=== PATIENT | female | born 1950 | race Caucasian/White ===

== ENCOUNTER 2018-04-04 01:49 | Outpatient (CLI) | payer MEDICARE, BC, SELFPAY ==
[2018-04-04 08:19] LABS: Absolute Basophil Count 0.03 k/cumm (0.0-0.2); Absolute Eosinophil Count 0.13 k/cumm (0.0-0.7); Absolute Lymphocyte Count 1.73 k/cumm (1.2-3.4); Absolute Monocyte Count 0.45 k/cumm (0.11-0.7); Absolute Neutrophil Count 2.48 k/cumm (1.2-6.7); Basophils % 0.6; Eosinophils % 2.7; HCT 42.5 % (36.0-46.0); HGB 13.9 g/dL (12.0-15.5); Lymphocytes % 35.9; Mean Corp. HGB Concentration 32.7 g/dL (32.0-36.0); Mean Corpuscular Hemoglobin 30.5 pg (27.0-33.0); Mean Corpuscular Volume 93.4 fL (80-95); Mean Platelet Volume 9.5 fL (8.0-11.0); Monocytes % 9.3; Neutrophils % 51.5; Platelet Count 241 x1000/uL (130-400); RBC 4.55 m/cumm (4.00-5.20); RBC Distribution Width 13.1 % (11.7-14.6); White Blood Cell Count 4.82 k/cumm (4.4-10.8)
[2018-04-04 11:17] LABS: ALT 18 U/L (12-78); AST 19 U/L (15-37); Albumin 3.8 g/dL (3.4-5.0); Alkaline Phosphatase 53 U/L (46-116); Anion Gap 10.7 mmol/L (3-11); BUN 16 mg/dL (7-18); Bilirubin, Total 0.6 mg/dL (0.2-1.0); CO2 27.3 mmol/L (21.0-32.0); CREATININE 0.67 mg/dL (0.55-1.02); Calcium 8.8 mg/dL (8.5-10.1); Chloride 106 mmol/L (98-107); Cholesterol 239 mg/dL (50-200); Glucose 90 mg/dL (70-100); HDL Cholesterol 67 mg/dL (40-60); LDL CHOLESTEROL 154 mg/dL (<100); Potassium 4.2 mmol/L (3.5-5.1); Sodium 144 mmol/L (136-145); TSH (W/Ref FT4) 6.85 uIU/mL (0.358-3.74); Triglyceride 98 mg/dL (30-150)
[2018-04-04 11:34] LABS: FREE T4 0.93 ng/dL (0.76-1.46)
== END 2018-04-04 02:09 ==
PROVIDERS: PCP Internal Medicine; Visit Provider Internal Medicine
DX: E03.9 Hypothyroidism, unspecified (principal); E78.5 Hyperlipidemia, unspecified
CPT/HCPCS: 36415; 80053; 80061; 83721; 84439; 84443; 85025

== ENCOUNTER 2018-07-16 09:16 | Outpatient (CLI) | payer MEDICARE, BC, SELFPAY ==
[2018-07-16 11:24] LABS: TSH (W/Ref FT4) 0.27 uIU/mL (0.358-3.74)
[2018-07-16 11:40] LABS: FREE T4 1.26 ng/dL (0.76-1.46)
== END 2018-07-16 09:36 ==
PROVIDERS: PCP Internal Medicine; Visit Provider Internal Medicine
DX: E03.9 Hypothyroidism, unspecified (principal)
CPT/HCPCS: 36415; 84439; 84443

== ENCOUNTER 2018-12-10 12:00 | Outpatient (CLI) | payer MEDICARE, BC, SELFPAY ==
[2018-12-10 09:47] LABS: Calculated LDL 140 mg/dL; Cholesterol 221 mg/dL (50-200); HDL Cholesterol 62 mg/dL (40-60); TSH (W/Ref FT4) 1.69 uIU/mL (0.36-3.74); Triglyceride 99 mg/dL (30-150)
== END 2018-12-10 12:20 ==
PROVIDERS: PCP Internal Medicine; Visit Provider Internal Medicine
DX: E78.5 Hyperlipidemia, unspecified (principal); E03.9 Hypothyroidism, unspecified
CPT/HCPCS: 36415; 80061; 84443

== ENCOUNTER 2019-02-12 01:19 | Outpatient (CLI) | payer MEDICARE, BC, SELFPAY ==
--- NOTE | 2019-02-12 16:36 | DI.DEXA_ITS ---
EXAM: XR DEXA BONE DENSITY W/WO DEEDEE INDICATION: history wrist fracture, ASYMPTOMATIC MENOPAUSAL STATE Z78.0. COMPARISON: TECHNIQUE: The exam was performed according to the usual protocol. FINDINGS: The DEEDEE image shows no evidence of compression fractures. The bone mineral density measurements of t he lumbar spine correspond to a total T-score of 0, in the normal range. Bone mineral density measure ments of the left hip correspond to a total T-score of -0.6 and a femoral neck T-score of -0.8, in th e normal range. The right forearm bone mineral density measurements correspond to a total T-score of -2.7 and a T-score of the distal 3rd of -1.9 in the osteopenic range. IMPRESSION: Osteopenia of the right forearm. Normal bone mineral density of the lumbar spine and left hip.
== END 2019-02-12 01:39 ==
PROVIDERS: PCP Internal Medicine; Visit Provider Internal Medicine
DX: M85.88 Other specified disorders of bone density and structure, other site (principal); Z78.0 Asymptomatic menopausal state; Z87.81 Personal history of (healed) traumatic fracture
CPT/HCPCS: 77080

== ENCOUNTER 2019-08-07 02:42 | Outpatient (CLI) | payer MEDICARE, BC, SELFPAY ==
--- NOTE | 2019-08-07 09:08 | DI.US_ITS ---
EXAM: US PELVIS TRANSVAGINAL CLINICAL HISTORY: Clitoral swelling,VULVAR LESION,N90.89 TECHNIQUE: Ultrasound performed using standard protocol. COMPARISON: US ABDOMEN ULTRASOUND (P) from 03/28/2017 FINDINGS: Pelvic ultrasound was performed transabdominally and transvaginally. Please see the accompanying heydi a sheet for measurements of pelvic structures. There is a well-defined mildly heterogeneous echogeni c uterine mass measuring up to about 34 millimeters in diameter consistent with a fibroid. Endometri al stripe borderline thickened at 5 millimeters, endometrial stripe appears fairly homogeneous. Ovaries have an unremarkable appearance for a postmenopausal patient. No free fluid identified in the pelvis. Limited scanning of the kidneys is unremarkable. Evaluation of questionable palpable abnormality of the labial region on the right shows a 15 x 6 x 19 millimeter in diameter solid hypoechoic lesion with some internal calcifications. 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 Other etiologies not excluded, biopsy may be obtained if clini yuliana indicated. IMPRESSION: DATA REPOSITORY:
== END 2019-08-07 03:02 ==
PROVIDERS: PCP Nurse Practitioner Adult Health; Visit Provider Obstetrics & Gynecology
DX: N90.89 Other specified noninflammatory disorders of vulva and perineum (principal); D25.9 Leiomyoma of uterus, unspecified; N94.89 Other specified conditions associated with female genital organs and menstrual cycle
CPT/HCPCS: 76830; 76856

== ENCOUNTER 2019-08-08 03:08 | Outpatient (CLI) | payer MEDICARE, BC, SELFPAY ==
[2019-08-08 14:01] LABS: TSH (W/Ref FT4) 1.55 uIU/mL (0.36-3.74)
[2019-08-13 16:18] LABS: Testosterone, Free 0.35 ng/dL (0.06-0.84); Testosterone, Total 22 ng/dL (8-60)
== END 2019-08-08 03:28 ==
PROVIDERS: PCP Nurse Practitioner Adult Health; Visit Provider Obstetrics & Gynecology
DX: E03.9 Hypothyroidism, unspecified (principal); N90.89 Other specified noninflammatory disorders of vulva and perineum
CPT/HCPCS: 36415; 84402; 84403; 84443

== ENCOUNTER 2019-08-11 12:54 | Outpatient (REF) | payer MEDICARE, BC, SELFPAY ==
--- NOTE | 2019-08-11 12:07 | ENDOMET_PTH ---
PATIENT: Cary Sewell LOC: [facility] U#:[id number] AGE/SX: 69/F ROOM: RE08/11/[address]: Felicia Hawk DO : 1950 BED: DIS: 08/11/2019 SPEC #: [id number] RECD: 08/11/19 15:37 STATUS: LENOIE REQ #: [id number] FELA: 08/11/19 12:[address]: Felicia Hawk DEPT: Surgical Specimen RECD BY: Nalini Fiore ENTERED: 08/11/19 15:38 SP TYPE: Endomet OTHR DR: Maddy Nicholas APRN Tissues: 1 - ENDOMETRIUM BX/EDWARD Procedures: GROSS AND MICRO LEVEL 4 Comments: [id number]
== END 2019-08-11 13:14 ==
LOC: LBN 12:54
PROVIDERS: PCP Nurse Practitioner Adult Health; Visit Provider Obstetrics & Gynecology
DX: N84.0 Polyp of corpus uteri (principal); N85.8 Other specified noninflammatory disorders of uterus
CPT/HCPCS: 88305

== ENCOUNTER 2019-09-23 01:15 | Outpatient (CLI) | payer MEDICARE, BC, SELFPAY ==
--- NOTE | 2019-09-23 | DI.US_ITS ---
EXAM: US SOFT TISS BUTTOCK/PERINEUM CLINICAL HISTORY: RECHECK CLITORAL VULVAR LESION,N90.89. TECHNIQUE: Ultrasound was performed using standard protocol. COMPARISON: US US PELVIS TRANSVAGINAL from 08/07/2019 FINDINGS: Sonographic assessment utilizing grayscale and color Doppler imaging was performed and targeted to th e area of clinical concern. There is again seen a well-circumscribed hypoechoic lesion measuring 1.6 x 0.5 x 1.3 cm. This compar es with 1.5 x 0.6 x 1.9 cm. There is mild internal vascularity and a calcification associated with t he lesion. The lesion is in the clitoral vulvar area. IMPRESSION: Slight interval decrease in size of the clitoral/vulvar lesion. DATA REPOSITORY:
== END 2019-09-23 01:35 ==
PROVIDERS: PCP Nurse Practitioner Adult Health; Visit Provider Obstetrics & Gynecology
DX: N90.89 Other specified noninflammatory disorders of vulva and perineum (principal)
CPT/HCPCS: 76857

== ENCOUNTER 2020-03-03 15:50 | Outpatient (REF) | payer MEDICARE, BC, SELFPAY ==
[2020-03-03 20:24] LABS: TSH (W/Ref FT4) 2.12 uIU/mL (0.36-3.74)
== END 2020-03-03 16:10 ==
LOC: LBO 15:50
PROVIDERS: PCP Nurse Practitioner Adult Health; Visit Provider Nurse Practitioner Adult Health
DX: E03.9 Hypothyroidism, unspecified (principal)
CPT/HCPCS: 84443

== ENCOUNTER 2020-03-09 01:44 | Outpatient (CLI) | payer MEDICARE, BC, SELFPAY ==
--- NOTE | 2020-03-09 08:15 | DI.US_ITS ---
EXAM: US CAROTID CLINICAL HISTORY: r/o stenosis, evaluate for plaque,DIZZINESS,LIGHTHEADED,R42. TECHNIQUE: Ultrasound carotids performed using grayscale, color-flow, and spectral Doppler imaging. COMPARISON: No exams were available for comparison FINDINGS: RIGHT CAROTID ARTERY: Plaque: None. Velocity elevation: None. LEFT CAROTID ARTERY: Plaque: None. Velocity elevation: None. VERTEBRAL ARTERIES: Antegrade flow. Measurements: R Bulb: 66.2cm/s PS / 16.7cm/s ED R CCA: 78.4cm/s PS / 19.9cm/s ED R ECA: 52.1cm/s PS / 10.5cm/s ED R ICA Prox: 85.7cm/s PS /19.5cm/s ED R ICA Mid: 79.9cm/s PS / 24.7cm/s ED R ICA Distal: 73.1cm/s PS /28.9cm/s ED R Vert: 57.3cm/s PS / 17.4cm/s ED R SVR: 1.09 R DVR: 0.98 L Bulb: 80.5cm/s PS /18.4cm/s ED L CCA: 87.8cm/s PS / 22.6cm/s ED L ECA: 71cm/s PS /12.6cm/s ED L ICA Prox:45.7cm/s PS / 11.6cm/s ED L ICA Mid: 97.2cm/sPS / 31.2cm/s ED L ICA Distal: 111.2cm/s PS / 36cm/s ED L Vert: 61.7cm/s PS / 18.6cm/s ED L SVR: 1.27 L DVR: 1.59 IMPRESSION: No evidence for hemodynamically significant carotid stenosis. Criteria for Carotid Stenosis: Normal: ICA PSV <125 cm/s no plaque or intimal thickening is visible. <50% stenosis: ICA PSV <125 cm/s and plaque or intimal thickening is visible. 50-69% stenosis: ICA PSV is 125-250 cm/s and plaque is visible. >70% stenosis to near occlusion: ICA PSV >250 cm/s with visible plaque and luminal narrowing. DATA REPOSITORY:
== END 2020-03-09 02:04 ==
PROVIDERS: PCP Nurse Practitioner Adult Health; Visit Provider Student in an Organized Health Care Education/Training Program
DX: R42 Dizziness and giddiness (principal)
CPT/HCPCS: 93880

== ENCOUNTER 2020-04-19 01:11 | Outpatient (CLI) | payer MEDICARE, BC, SELFPAY ==
--- NOTE | 2020-04-19 | DI.US_ITS ---
EXAM: US HERNIA CLINICAL HISTORY: NEW LUMP RT MONS PUBIS,H/O VULVULAR LESION,LUMP IN GROIN,R93.89,N90.89. TECHNIQUE: Ultrasound of the right groin was performed. Images are submitted for interpretation.. COMPARISON: None FINDINGS: Sonographic assessment utilizing grayscale and color Doppler imaging was performed and targeted to th e area of clinical concern. This is apparently the right groin region. There is fat density in this region measuring approximately 2.2 x 1.0 x 0.8 centimetres which is prob ably an inguinal hernia. No obvious bowel loops noted therein on these images. IMPRESSION: As above. If clinically indicated further study with CT scan could be performed. DATA REPOSITORY:
== END 2020-04-19 01:12 ==
LOC: DI 01:11
PROVIDERS: PCP Nurse Practitioner Adult Health; Visit Provider Nurse Practitioner Adult Health
DX: R93.89 Abnormal findings on diagnostic imaging of other specified body structures (principal)
CPT/HCPCS: 76857

== ENCOUNTER 2020-09-28 03:32 | Outpatient (CLI) | payer MEDICARE, BC, SELFPAY ==
[2020-09-28 09:14] LABS: Anion Gap 6.3 mmol/L (3-11); BUN 13 mg/dL (7-18); CO2 31.7 mmol/L (21.0-32.0); CREATININE 0.6 mg/dL (0.55-1.02); Calcium 8.8 mg/dL (8.5-10.1); Calculated LDL 150 mg/dL (<100); Chloride 108 mmol/L (98-107); Cholesterol 234 mg/dL (<200); Folate 17.5 ng/mL (8.6-20.0); Glucose 93 mg/dL (74-106); HDL Cholesterol 65 mg/dL (40-60); Potassium 4.7 mmol/L (3.5-5.1); Sodium 146 mmol/L (136-145); TSH (W/Ref FT4) 3.02 uIU/mL (0.36-3.74); Triglyceride 97 mg/dL (<150); Vitamin B12 244 pg/mL (193-986)
[2020-09-28 18:45] LABS: Vitamin D 25 Total 52.2 ng/mL (30-100)
== END 2020-09-28 03:33 | disposition home or self-care (01) ==
LOC: LBO 03:32
PROVIDERS: PCP Nurse Practitioner Adult Health; Visit Provider Nurse Practitioner Adult Health
DX: E03.9 Hypothyroidism, unspecified (principal); E78.5 Hyperlipidemia, unspecified; M85.88 Other specified disorders of bone density and structure, other site; R20.2 Paresthesia of skin
CPT/HCPCS: 36415; 80048; 80061; 82306; 82607; 82746; 84443

== ENCOUNTER 2020-10-06 02:37 | Outpatient (CLI) | payer MEDICARE, BC, SELFPAY ==
--- NOTE | 2020-10-06 07:45 | DI.US_ITS ---
Exam(s) US SOFT TISS EXTREMITY/GROIN EXAM: US SOFT TISS EXTREMITY/GROIN CLINICAL HISTORY: Recheck lesion near to the clitoris,VULVAR LESION,N90.89. TECHNIQUE: Ultrasound was performed using standard protocol. COMPARISON: US US SOFT TISS BUTTOCK/PERINEUM from 09/23/2019 US US SOFT TISS BUTTOCK/PERINEUM from 09/23/2019 US US HERNIA from 04/19/2020 FINDINGS: Sonographic assessment utilizing grayscale and color Doppler imaging was performed and targeted to th e area of clinical concern. This is the collateral-vulvar region. Again noted is the previously described oval well-circumscribed lesion which appears unchanged, prese ntly measuring 16 by 8 x 14 millimeter. Exhibits some mild peripheral calcification. This is not co mpletely anechoic but again exhibits relatively uniform internal echoes. IMPRESSION: Previously described finding in this region exhibits minimal if any significant change. It is well-d efined slightly vascular. It is not a simple cyst DATA REPOSITORY:
== END 2020-10-06 02:57 ==
PROVIDERS: PCP Nurse Practitioner Adult Health; Visit Provider Obstetrics & Gynecology
DX: N90.89 Other specified noninflammatory disorders of vulva and perineum (principal); M72.2 Plantar fascial fibromatosis
CPT/HCPCS: 76882

== ENCOUNTER 2021-02-11 16:19 | Outpatient (REF) | payer MEDICARE, BC, SELFPAY ==
[2021-02-11 19:28] LABS: Abs Immature Grans 0.01 10^3/uL (0.0-0.06); Absolute Basophil Count 0.06 10^3/uL (0.0-0.2); Absolute Eosinophil Count 0.08 10^3/uL (0.0-0.7); Absolute Lymphocyte Count 2.39 10^3/uL (1.2-3.4); Absolute Neutrophil Count 2.96 10^3/uL (1.2-6.7); Eosinophils % 1.3; HCT 41.9 % (36.0-46.0); HGB 13.5 g/dL (11.2-15.7); Immature Grans % 0.2; Lymphocytes % 39.8; MCH 30.1 pg (27.0-33.0); MCHC 32.2 % (32.0-36.0); MCV 93.5 fL (80-95); MPV 9.5 fL (8.0-11.0); Monocytes % 8.3; Neutrophils % 49.4; Nucleated RBC 0 %; Platelet Count 287 10^3/uL (130-400); RBC 4.48 10^6/uL (3.93-5.22); RDW 12.4 % (11.7-14.6)
[2021-02-11 19:32] LABS: ALT 23 U/L (14-59); AST 15 U/L (15-37); Alkaline Phosphatase 57 U/L (46-116); Anion Gap 7.4 mmol/L (3-11); BUN 16 mg/dL (7-18); Bilirubin, Total 0.3 mg/dL (0.2-1.0); CO2 29.6 mmol/L (21.0-32.0); CREATININE 0.7 mg/dL (0.55-1.02); Chloride 104 mmol/L (98-107); Glucose 81 mg/dL (74-106); Magnesium 2.5 mg/dL (1.8-2.4); Potassium 4.3 mmol/L (3.5-5.1); Sodium 141 mmol/L (136-145); TSH (W/Ref FT4) 5.71 uIU/mL (0.36-3.74); Total Protein 6.9 g/dL (6.4-8.2); Vitamin B12 464 pg/mL (193-986)
[2021-02-11 19:52] LABS: FREE T4 0.93 ng/dL (0.76-1.46)
== END 2021-02-11 16:20 | disposition home or self-care (01) ==
LOC: LBN 16:19
PROVIDERS: PCP Nurse Practitioner Adult Health; Visit Provider Nurse Practitioner Adult Health
DX: F43.9 Reaction to severe stress, unspecified (principal); R00.2 Palpitations; R53.83 Other fatigue; R63.4 Abnormal weight loss
CPT/HCPCS: 80053; 82607; 83735; 84439; 84443; 85025

== ENCOUNTER 2021-04-14 02:57 | Outpatient (CLI) | payer MEDICARE, BC, SELFPAY ==
--- NOTE | 2021-05-05 12:48 | W.CARDEVENT ---
Date of service: 05/05/21 Time of Service: 12:48 Cardiac Event Recorder Referring Provider:: Maddy Nicholas Indications:: Palpitations Cardiac Event Note: This is a 14-day monitor and storage bin tender ordered for palpitations Predominant rhythm was sinus with an average heart rate of 63. Minimum was 42, maximum 138 There were rare ventricular ectopic beats. There was one 4 beat run of nonsustained ventricular tachycardia There were rare atrial premature beats. A total of 42 self-limited atrial runs occurred. Most of these were less than 5 beats in duration. There was one of 11 beats, another of 17 beats There was no atrial fibrillation, no high-grade AV block, no pauses greater than 2 seconds Multiple patient symptoms were reported the vast majority of which corresponded to sinus rhythm in the 60s. One episode may have correlated to brief atrial run
--- NOTE | 2021-05-27 08:22 | W.CARDEVENT ---
Date of service: 05/27/21 Time of Service: 08:22 Cardiac Event Recorder Referring Provider:: Maddy Cooney Indications:: Palpitations Cardiac Event Note: This is a 14-day event monitor, ordered for palpitations. Predominant rhythm was sinus. Average heart rate was 63. Minimum was 42, maximum 138 There were rare ventricular ectopic beats. There was one 4 beat run of nonsustained tachycardia There were rare atrial premature beats. A total of 6 self-limited atrial runs occurred. The longest of these was 11 beats in duration. 3 of these corresponded to symptoms There was no atrial fibrillation, no high-grade AV block, no pauses greater than 3 seconds Multiple patient symptoms were reported. The majority of these corresponded to sinus bradycardia and sinus rhythm. Rarely they corresponded to atrial runs, see above
== END 2021-04-14 02:58 | disposition home or self-care (01) ==
LOC: RT 02:58
PROVIDERS: PCP Nurse Practitioner Adult Health; Visit Provider Nurse Practitioner Adult Health
DX: R00.2 Palpitations (principal); I49.1 Atrial premature depolarization; Z86.79 Personal history of other diseases of the circulatory system; F43.9 Reaction to severe stress, unspecified
CPT/HCPCS: 93246

== ENCOUNTER 2021-05-05 12:48 | Outpatient (CLI) | payer MEDICARE, BC, SELFPAY | END 2021-05-05 12:49 | LOC: CARDO 06-15 13:01 | PROVIDERS: PCP Nurse Practitioner Adult Health; Referring Provider Nurse Practitioner Adult Health; Visit Provider Internal Medicine Cardiovascular Disease | DX: R00.2 Palpitations (principal); I49.1 Atrial premature depolarization | CPT/HCPCS: 93248 ==

== ENCOUNTER 2021-11-22 01:38 | Outpatient (CLI) | payer MEDICARE, BC, SELFPAY ==
[2021-11-22 08:14] LABS: Anion Gap 7.6 mmol/L (3-11); BUN 13 mg/dL (7-18); CO2 29.4 mmol/L (21.0-32.0); CREATININE 0.6 mg/dL (0.55-1.02); Calcium 8.9 mg/dL (8.5-10.1); Calculated LDL 120 mg/dL (<100); Chloride 106 mmol/L (98-107); Cholesterol 206 mg/dL (<200); Glucose 94 mg/dL (74-106); HDL Cholesterol 75 mg/dL (40-60); Potassium 3.8 mmol/L (3.5-5.1); Sodium 143 mmol/L (136-145); TSH (W/Ref FT4) 1.69 uIU/mL (0.36-3.74); Triglyceride 56 mg/dL (<150)
== END 2021-11-22 01:39 | disposition home or self-care (01) ==
LOC: LBO 01:38
PROVIDERS: PCP Nurse Practitioner Adult Health; Visit Provider Nurse Practitioner Adult Health
DX: E03.9 Hypothyroidism, unspecified (principal); E78.00 Pure hypercholesterolemia, unspecified; M85.831 Other specified disorders of bone density and structure, right forearm
CPT/HCPCS: 36415; 80048; 80061; 84443

== ENCOUNTER 2022-11-16 02:21 | Outpatient (CLI) | payer MEDICARE, BC, SELFPAY ==
[2022-11-16 10:52] LABS: Anion Gap 5.8 mmol/L (3-11); BUN 15 mg/dL (7-18); CO2 29.2 mmol/L (21.0-32.0); CREATININE 0.7 mg/dL (0.55-1.02); Calcium 8.8 mg/dL (8.5-10.1); Calculated LDL 121 mg/dL (<100); Chloride 105 mmol/L (98-107); Cholesterol 205 mg/dL (<200); Estimated GFR 92.41 (mL/min/1.73m2); Glucose 90 mg/dL (74-106); HDL Cholesterol 70 mg/dL (40-60); Potassium 3.9 mmol/L (3.5-5.1); Sodium 140 mmol/L (136-145); TSH (W/Ref FT4) 1.46 uIU/mL (0.36-3.74); Triglyceride 70 mg/dL (<150)
== END 2022-11-16 02:22 | disposition home or self-care (01) ==
LOC: LBO 02:21
PROVIDERS: PCP Nurse Practitioner Adult Health; Visit Provider Nurse Practitioner Adult Health
DX: E03.9 Hypothyroidism, unspecified (principal); E78.00 Pure hypercholesterolemia, unspecified; M85.831 Other specified disorders of bone density and structure, right forearm
CPT/HCPCS: 36415; 80048; 80061; 84443

== ENCOUNTER 2022-11-23 10:19 | Outpatient (RCR) | payer MEDICARE, BC, SELFPAY ==
--- NOTE | 2022-11-23 10:20 | HOLTER_ITS ---
APPROVED REPORT Conclusion This is a 48-hour Holter monitor ordered for palpitations Rhythm throughout was sinus with an average heart rate of 66. Minimum was 49, maximum 119 There were rare ventricular ectopic beats There were rare atrial premature beats. A total of 15 self-limited atrial runs occurred. The longes t of these was 28 beats in duration There was no atrial fibrillation, no high-grade AV block, no pauses greater than 3 seconds Symptoms were reported. Some of these appeared to correlate with atrial runs
== END 2022-12-02 23:59 | disposition home or self-care (01) ==
LOC: CARDOPNVT 10:19
PROVIDERS: PCP Nurse Practitioner Adult Health; Visit Provider Nurse Practitioner Adult Health
DX: R00.2 Palpitations (principal)
CPT/HCPCS: 93227; 93225; 93226

== ENCOUNTER → 2023-03-14 14:17 | Outpatient (CLI) | payer MEDICARE, BC, SELFPAY ==
--- NOTE | 2023-03-14 14:25 | DI.RAD_ITS ---
Exam(s) XR ABDOMEN FLAT UPRIGHT EXAM: 2D digital imaging was performed. CLINICAL HISTORY: eval boat, obstruction, ileus, bloating, pain, intestinal cramps, FH CA GI. COMPARISON: CR CHEST 2 VIEWS PA,LAT from 03/08/2016 TECHNIQUE: Supine and upright abdomen and PA chest views were performed. Five images were obtained. FINDINGS: MEDIASTINUM: Normal. HEART: Normal. PULMONARY VASCULATURE: Normal. LUNGS: Clear. PLEURAL SPACE: No pleural effusion or pneumothorax. BONE:Within normal limits for the patient's age. OTHER FINDINGS:There are multiple phleboliths in the pelvis. BOWEL GAS PATTERN: Nondistended. FREE AIR: None. CALCIFICATIONS: No radiopaque calcifications. OTHER FINDINGS: None. IMPRESSION: 1. Nonobstructive bowel gas pattern. 2. No acute pulmonary process. DATA REPOSITORY: RADIATION DOSE DELIVERED:
[2023-03-14 15:45] LABS: Abs Immature Grans 0.01 10^3/uL (0.0-0.06); Absolute Basophil Count 0.06 10^3/uL (0.0-0.2); Absolute Eosinophil Count 0.08 10^3/uL (0.0-0.7); Absolute Lymphocyte Count 1.74 10^3/uL (1.2-3.4); Absolute Monocyte Count 0.53 10^3/uL (0.1-0.8); Absolute Neutrophil Count 3.32 10^3/uL (1.2-6.7); Eosinophils % 1.4; HCT 40.6 % (36.0-46.0); HGB 13.3 g/dL (11.2-15.7); Immature Grans % 0.2; Lymphocytes % 30.3; MCH 30.2 pg (27.0-33.0); MCHC 32.8 % (32.0-36.0); MCV 92 fL (80-95); MPV 9.7 fL (8.0-11.0); Monocytes % 9.2; Neutrophils % 57.9; Platelet Count 256 10^3/uL (130-400); RBC 4.41 10^6/uL (3.93-5.22); RDW 12.4 % (11.7-14.6); RDW-SD 42.1 fL; WBC 5.74 10^3/uL (4.4-10.8)
[2023-03-14 16:10] LABS: Anion Gap 8.2 mmol/L (3-11); BUN 16 mg/dL (7-18); CO2 27.8 mmol/L (21.0-32.0); CREATININE 0.6 mg/dL (0.55-1.02); Chloride 104 mmol/L (98-107); Estimated GFR 95.31 (mL/min/1.73m2); Glucose 87 mg/dL (74-106); Sodium 140 mmol/L (136-145)
== END ==
PROVIDERS: PCP Nurse Practitioner Adult Health; Visit Provider Student in an Organized Health Care Education/Training Program
DX: R14.0 Abdominal distension (gaseous) (principal); R10.9 Unspecified abdominal pain; Z80.0 Family history of malignant neoplasm of digestive organs
CPT/HCPCS: 36415; 80048; 74019; 85025

== ENCOUNTER 2023-11-27 07:16 | Outpatient (CLI) | payer MEDICARE, BC, SELFPAY ==
[2023-11-27 08:17] LABS: Anion Gap 7.3 mmol/L (3-11); BUN 16 mg/dL (7-18); CO2 27.7 mmol/L (21.0-32.0); CREATININE 0.7 mg/dL (0.55-1.02); Calcium 8.7 mg/dL (8.5-10.1); Calculated LDL 134 mg/dL (<100); Chloride 106 mmol/L (98-107); Cholesterol 224 mg/dL (<200); Estimated GFR 91.83 (mL/min/1.73m2); Glucose 95 mg/dL (74-106); HDL Cholesterol 75 mg/dL (40-60); Sodium 141 mmol/L (136-145); TSH (W/Ref FT4) 1.65 uIU/mL (0.36-3.74); Triglyceride 79 mg/dL (<150)
== END 2023-11-27 07:17 | disposition home or self-care (01) ==
LOC: LBO 07:17
PROVIDERS: PCP Nurse Practitioner Adult Health; Visit Provider Nurse Practitioner Adult Health
DX: E03.8 Other specified hypothyroidism (principal); E03.9 Hypothyroidism, unspecified; E78.5 Hyperlipidemia, unspecified; E78.00 Pure hypercholesterolemia, unspecified; M85.831 Other specified disorders of bone density and structure, right forearm; H61.20 Impacted cerumen, unspecified ear; R00.2 Palpitations; Z80.0 Family history of malignant neoplasm of digestive organs; Z80.3 Family history of malignant neoplasm of breast; Z12.31 Encounter for screening mammogram for malignant neoplasm of breast; H61.23 Impacted cerumen, bilateral
CPT/HCPCS: 36415; 80048; 80061; 84443

== ENCOUNTER 2024-04-18 00:15 | Outpatient (CLI) | payer MEDICARE, BC, SELFPAY ==
--- OUTSIDE RECORDS SUMMARY | 2024-04-18 00:18 | XMS_ITS | Clinical Summary ---
Author Organization [facility] [place] [address] Care Team Providers Care Chief Psychology Name Role Phone Maddy Nicholas APRN Primary Care Provider [phone] Allergies Active Allergy Reactions Criticality Noted Date Comments Sulfa (Sulfonamide Antibiotics) Medications Medication Sig Dispensed Refills Start Date End Date Status melatonin 3 mg Tab Take 3 mg by mouth every evening. Active diphenhydrAMINE (BENADRYL) 25 mg tablet Take 25 mg by mouth every 6 hours as needed. Active levothyroxine (SYNTHROID) 88 mcg Tablet Take 88 mcg by mouth daily. Sunday,Sunday, and Sunday Active levothyroxine (SYNTHROID) 50 mcg Tablet Take 50 mcg by mouth daily. Take on Sunday, Sunday and Sunday Active cholecalciferol, Vitamin D3, (CHOLECALCIFEROL, VITAMIN D3,) 2,000 unit Capsule Take 2,000 Units by mouth daily. Active Red Yeast Rice Extract 600 mg Capsule Take 600 mg by mouth daily. Active magnesium oxide (MAG-OX) 400 mg Tablet Take 400 mg by mouth daily. Active triamcinolone (KENALOG) 0.1 % OintmentIndications:I rritant hand dermatitis Apply topically to affected areas on hands twice daily for two weeks. Take a week off and repeat as needed. 80 g 1 09/27/2018 Active traZODone (Desyrel) 50 mg Tablet TAKE ONE-HALF TO ONE TABLET BY MOUTH AT BEDTIME; MAY REPEAT ONCE NEEDED +MAX 100MG PER DAY+ 04/23/2021 Active Active Problems Problem Noted Date Diagnosed Date Chest pain 03/21/2017 Gastroesophageal reflux 03/21/2017 Hypothyroidism 03/21/2017 Hyperlipidemia 03/21/2017 Cryptic tonsil 02/04/2013 Overview (02/04/2013): right Abnormal CT scan of lung 01/13/2013 Immunizations Name Administration Dates Next Due Hepatitis A, Unspecified Formulation 07/07/2005 Td Adult (not absorbed) 06/27/2005 Family History Medical History Relation Comments Diabetes Brother 1 Alcohol Use Disorder Father Cerebrovascular Accident Father Hypertension Father Heart Disease Maternal Grandfather Breast Cancer Mother Colorectal Cancer Mother Diabetes Mother Breast Cancer Sister Diabetes Sister Relation Status Comments Brother 1 Alive Brother 2 Alive Father Maternal Grandfather Mother Sister Alive Social History Tobacco Use Types Packs/Day Years Used Date Smoking Tobacco: Former Cigarettes Q uit: 01/14/1972 Smokeless Tobacco: Never Alcohol Use Standard Drinks/Week Comments Yes 0 (1 standard drink = 0.6 oz pure alcohol) a couple of glasses on the weekend Sex and Gender Information Value Date Recorded Sex Assigned at Not on file Gender Identity Not on file Sexual Orientation Not on file Last Filed Vital Signs Vital Sign Reading Time Taken Comments Blood Pressure 98/62 04/11/2017 1:20 PM EST Pulse 60 04/11/2017 1:12 PM EST per e kg Temperature - - Respiratory Rate - - Oxygen Saturation 98% 04/11/2013 10:08 AM EST Inhaled Oxygen Concentration - - Weight 60.8 kg (134 lb) 04/11/2017 1:12 PM EST Height 167.6 cm (5' 6) 04/11/2017 1:12 PM EST Body Mass Index 21.63 04/11/2017 1:12 PM EST Plan of Treatment Health Maintenance Due Date Last Done Comments CT Colonography 1950 Colonoscopy 1950 Colorectal Cancer Screening 1950 FIT DNA 1950 FIT 1950 Sigmoidoscopy (10 year) with FIT yearly 1950 Sigmoidoscopy 1950 Hepatitis C Screening 1969 Breast Cancer Share Decision Needed 1991 Pneumoccocal Vaccine: 50+ (1 of 1 - PCV) 2001 Zoster vaccine (1 of 2) 2001 Tetanus/Diphtheria/Pertussis Vaccines (1 - Tdap) 06/28/2005 06/27/2005 Advance Directive 2006 Bone Density Scan 2016 Covid-19 Vaccine (1 - 2023-2 5 season) 2023 Influenza (Flu) vaccine (1 o f 1 - Influenza standard series) 11/04/2023 Breast Cancer screening 12/02/2025 12/03/19 24, 11/15/2022, 10/18/2021, Additional history exists Procedures Procedure Name Priority Date/Time Associated Diagnosis Comments MAMMO SCREENING CAD AND JAIME BILATERAL Routine 12/03/2023 9:41 AM EDT Visit for screening mammogram from Last 3 Months or Most Recently Relevant to Health Maintenance Results * Mammo Screening Cad and Jaime Bilateral (12/03/2023 9:41 AM EDT) Anatomical Region Laterality Modality Breast Bilateral Mammography Impressions 12/03/2023 10:01 AM EDT : No mammographic evidence of malignancy. RECOMMENDATION: Regular screening mammograms starting at age 40 reduce the risk of from breast cancer. Individuals should discuss the risks and benefits with their provider to determine their preferred breast cancer screening schedule, and at what age screening should stop. Individuals should report any breast changes to a health care provider right away. Some individuals, because of their family history, a genetic tendency, or other factors, should consider being screened with annual breast MRI as well as with mammograms. Screening mammography may not detect 10-15% of breast cancers. A result letter has been sent to this patient by the [facility]. BIRADS CATEGORY 1: NEGATIVE Electronically signed by: JEOVANY COMBS MD [facility] [place], [place] [address] Your breast imaging exam done on: ??12/03/23 Narrative 12/03/2023 10:01 AM EDT BILATERAL MAMMOGRAPHY REASON FOR EXAM: Screening TECHNIQUE: CC and MLO views were obtained of each breast using standard 2-D mammography as well as 3-D tomosynthesis. Computer aided detection was used. This is compared with prior images. FINDINGS: ??The breasts are heterogeneously dense, which may obscure small masses. There are no suspicious microcalcifications, masses, or areas of distortion. The pattern is stable. Maddy Nicholas APRN IMG MAMMO ORDERABLE S from Last 3 Months or Most Recently Relevant to Health Maintenance Care Teams Chief Psychology Relationship Specialty Start Date End Date Maddy Nicholas APRN [address] [place], [place] [id number] PCP - General Geriatric Medicine 10/28/19
--- OUTSIDE RECORDS SUMMARY | 2024-04-18 00:18 | XMS_ITS | Encounter Summary ---
[place] [address] Care Team Providers Care Hammer Setter Name Role Phone Maddy Nicholas APRN Primary Care Provider [phone] Encounter Details Date Type Department Care Team (Latest Contact Info) Description 12/03/2023 9:09 AM EDT - 12/03/2023 11:59 PM EDT Hospital Encounter Mammography/[place] [id number] Maddy Nicholas APRN [address] [place] [address] Visit for screening mammogram Discharge Disposition: Home Social History Tobacco Use Types Packs/Day Years [...] on file Sexual Orientation Not on file documented as of this encounter Medications at Time of Discharge Medication Sig Dispensed Refills Start Date End Date traZODone (Desyrel) 50 mg Tablet TAKE ONE-HALF TO ONE TABLET BY MOUTH AT BEDTIME; MAY REPEAT ONCE NEEDED +MAX 100MG PER DAY+ 04/23/2021 triamcinolone (KENALOG) 0.1 % OintmentIndications:Irri tant hand dermatitis Apply topically to affected areas on hands twice daily for two weeks. Take a week off and repeat as needed. 80 g 1 09/27/2018 magnesium oxide (MAG-OX) 400 mg Tablet Take 400 mg by mouth daily. levothyroxine (SYNTHROID) 88 mcg Tablet Take 88 mcg by mouth daily. Sunday,Sunday, and Sunday levothyroxine (SYNTHROID) 50 mcg Tablet Take 50 mcg by mouth daily. Take on Sunday, Sunday and Sunday cholecalciferol, Vitamin D3, (CHOLECALCIFEROL, VITAMIN D3,) 2,000 unit Capsule Take 2,000 Units by mouth daily. Red Yeast Rice Extract 600 mg Capsule Take 600 mg by mouth daily. diphenhydrAMINE (BENADRYL) 25 mg tablet Take 25 mg by mouth every 6 hours as needed. melatonin 3 mg Tab Take 3 mg by mouth every evening. documented as of this encounter Plan of Treatment Not on file documented as of this encounter Procedures Procedure Name Priority Date/Time Associated Diagnosis Comments MAMMO SCREENING CAD AND JAIME BILATERAL Routine 12/03/2023 9:41 AM EDT Visit for screening mammogram documented in this encounter Results * Mammo Screening Cad and Jaime [...] JEOVANY COMBS MD [facility] [place], [place] [address] Your breast imaging exam done on: ??12/03/23 [...] Maddy Nicholas APRN IMG MAMMO ORDERABLE S documented in this encounter Visit Diagnoses Diagnosis Visit for screening mammogram Other screening mammogram documented in this encounter Care Teams Hammer Setter Relationship Specialty Start Date End Date Maddy Nicholas APRN [address] [place] [address] PCP - General Geriatric Medicine 10/28/19 documented as of this encounter
--- OUTSIDE RECORDS SUMMARY | 2024-04-18 00:18 | XMS_ITS | Encounter Summary ---
Author Organization [facility] Address [address] [place] [address] Care Team Providers Care Yard Pilot Name Role Phone Unavailable Primary Care Provider Unavailabl e Encounter Details Date Type Department Care Team (Late st Contact Info) Description 02/05/2014 Results Only [facility] Services - [facility] ([facility]) [address] [place] [id number] Maylin Hinojosa PA Social History Tobacco Use Types Packs/Day Years Used Date Smoking Tobacco: Never Assessed Comments Unknown Sex and Gender Information Value Date Recorded Sex Assigned at Not on file Legal Sex Female 17:40 EST Gender Identity Not on file Sexual Orientation Not on file documented as of this encounter Plan of Treatment Not on file documented as of this encounter Procedures Procedure Name Priority Date/Time Associated Diagnosis Comments PAP TEST- RESULT ONLY Routine 02/05/2014 0:00 EST documented in this encounter Results * PAP TEST- RESULT ONLY (02/05/2014 0:00 EST) Pathology Report: CYTOPATHOLOGY REPORT Reports generated via electronic interface contain original data; however they are lacking the format of the original report. Caution should be taken when reading/interpreti ng unformatted reports. Name: ? CONSTANZA LUNA ? Accession #: ? [id number] ? : ? 1950 (Age: 63) ??F ?Collect Date: ? 02/05/2014 ? Location: ? [facility] ? Receive Date: ? 02/06/2014 ? Provider: MAYLIN STAFFORD Copy to: ? Final Report SPECIMEN ADEQUACY ? Satisfactory for Evaluation - transformation zone component present GENERAL CATEGORIZATION ? Negative for Intraepithelial Lesion or Malignancy ?? Menstrual/Pregnanc y Status: ??Post Menopausal Previous Gynecologic Pathology: Yes: Many yrs ago Specimen/Source: ??Pap Test, Cervix/Endocervix, ThinPrep Imaging System with manual evaluation Document reviewed and electronically signed by: ? ERNESTO Alatorre(ASCP) ? Report ??Date: 02/10/2014 13:07 HPV with Pap Test ? Date Ordered: ? 02/10/2014 ? Status: ?? Signed Out ?Date Complete: ? 02/11/2014 ? By: ??System Interface ? Date Reported: ? 02/11/2014 ? Interpretation RESULT: Negative for HPV. No E6 or E7 mRNA is detected from HPV types 16,18,31,33,35, 39,45,51,52,56,58, 59,66, and 68 by senior bookkeeper mediated amplification. Comments Document reviewed and electronically signed by: ? System Interface ? Report date: 02/11/2014 By the signature above, the attending physician certifies that he/she has personally conducted a gross and/or microscopic examination of the described specimens and rendered or confirmed the above diagnosis. End of Report [facility] 02/05/2014 02/06/2014 us Maylin STAFFORD PATHOLOGY ORDERABLES Final Resul t [facility] [address] [place] [address] documented in this encounter Visit Diagnoses Not on filedocumented in this encounter
--- OUTSIDE RECORDS SUMMARY | 2024-04-18 00:18 | XMS_ITS | Encounter Summary ---
Author Organization [facility] Address [facility] [place] [address] Care Team Providers Care Vice President Planning Name Role Phone Maddy Nicholas APRN Primary Care Provider [phone] Encounter Details Date Type Department Care Team (Late st Contact Info) Description 11/29/2023 11:45 AM EDT Office Visit Dermatology at [facility] [address] [place] [address] Adalberto Melchor MD [facility] [address] [place] [address] AK (actinic keratosis); Inflamed seborrheic keratosis; Skin cancer screening; SK (seborrheic keratosis); Multiple benign nevi; Duncan angioma; Lentigines Social History Tobacco Use Types Packs/Day Years [...] on file documented as of this encounter Progress Notes * Montse Dickerson CCMA - 11/29/2023 11:45 AM EDT Images from the original note were not included. DEPARTMENT OF DERMATOLOGY Medical Dermatology Clinic Provider: Adalberto Melchor MD Patient's preferred name Cary Preferred contact method for results []Phone []myD-H []Letter Detailed phone message OK? Are there any other people with whom we may discuss your care? Past Medical History Date, location, treatment Melanoma N Dysplastic nevi N SCC N BCC N AKs Y UV Exposure & Protection Denies heavy sun exposure Other relevant past medical history N Family History Details Melanoma NMSC Other relevant family history Social History Occupation: Retired Hobbies: Other: Pre-Procedure Questions Details Allergy to lidocaine, epinephrine, Dermabond, chlorhexidine, or adhesives Bleeding disorder or blood thinners Pacemaker, defibrillator, deep brain stimulator, cochlear implant History of Present Illness: Cary López is a 73 y.o. Patient returns to clinic today for concerning spot on the face. Patient reports she has a spot on her face present for about a year. Patient reports it is asymptomatic and she thinks it is smaller then normal. Last visit at Dermatology: 10/18/2021 Last visit with this provider: 10/18/2021 Medications: Reviewed in eD-H Allergies: Reviewed in eD-H Skin Examination: Focused skin examination of the left cheek was normal with the exception of the findings below. Assessment/Plan #. Actinic Keratoses - Ill-defined gritty papules on the left chest x1. - Explained premalignant potential of these lesions. - Discussed treatment with cryotherapy. Patient elects to proceed with cryotherapy today. - Instructed patient to return to clinic for re-evaluation if lesion(s) does not resolve as expected with this treatment. Procedure: Destruction of lesion(s) with cryotherapy (LN2). Location(s): As noted above. Number: 1 Discussed procedure and expectations, including risks and benefits. Verbal consent obtained. Treated with LN2. There were no complications; Patient tolerated the procedure well. Post-procedure expectations and wound care reviewed. #. Inflamed Seborrheic Keratosis - Inflamed, stuck on, waxy papule on the left cheek. - Discussed benign nature of lesion(s) and provided reassurance. - Due to irritation present on today's exam and history of symptoms, discussed removal with cryotherapy. - Offered treatment with LN2; however, patient declines at this time as lesion is not bothersome. - Will recheck spot at patient's full skin exam. #. Duncan Angiomas - Multiple bright red, well-demarcated papules on the trunk and extremities. - Discussed benign nature of lesions and provided reassurance. No treatment necessary at this time. #. Seborrheic Keratoses - Stuck on, waxy papules on the trunk and extremities. - Discussed benign nature of lesions and provided reassurance. No treatment necessary at this time. #. Lentigines - Scattered light-brown, evenly pigmented, well-demarcated macules on sun-exposed areas of the trunk and extremities. - No worrisome pigmented lesions. Discussed benign nature of lesions and provided reassurance. Willcontinue to monitor. Other: Sun protection discussed (protective clothing and SPF30+ broad-spectrum sunscreen) RTC: 2 years for FSE []Note routed to police department secretary [x]Recall placed in scheduling system []Appointment scheduled at checkout Scribe attestation: DESTINY Arellano has performed the documentation for this encounter in the presence of and acting as a scribe for Adalberto Melchor MD. I performed the above scribed service and agree with the accuracy of the documentation in this encounter. Reviewed and signed by: Adalberto Melchor MD Dermatology [facility] documented in this encounter Plan of Treatment Not on file documented as of this encounter Visit Diagnoses Diagnosis AK (actinic keratosis) Actinic keratosis Inflamed seborrheic keratosis Skin cancer screening Screening for malignant neoplasm of the skin SK (seborrheic keratosis) Other seborrheic keratosis Multiple benign nevi Benign neoplasm of skin, site unspecified Duncan angioma Nevus, non-neoplastic Lentigines Other dyschromia documented in this encounter Care Teams Vice President Planning Relationship Specialty Start Date End Date Maddy Nicholas APRN [address] [place] [address] PCP - General Geriatric Medicine 10/28/19 documented as of this encounter
--- OUTSIDE RECORDS SUMMARY | 2024-04-18 00:18 | XMS_ITS | Encounter Summary ---
Author Organization [facility] Address [facility] [place] [address] Care Team Providers Care Accounting File Clerk Name Role Phone Maddy Nicholas APRN Primary Care Provider Encounter Details Date Type Department Care Team (Latest Contact Info) Description 11/29/2023 Travel Social History Tobacco Use Types Packs/Day Years [...] documented as of this encounter Visit Diagnoses Not on filedocumented in this encounter Care Teams Accounting File Clerk Relationship Specialty Start Date End Date Maddy Nicholas APRN [address] [place] [address] PCP - General Geriatric Medicine 10/28/19 documented as of this encounter
--- OUTSIDE RECORDS SUMMARY | 2024-04-18 00:18 | XMS_ITS | Encounter Summary ---
Author Organization [facility] Address [address] [place] [address] Care Team Providers Care Plate Glass Polisher Name Role Phone Unavailable Primary Care Provider Unavailabl e Encounter Details Date Type Department Care Team (Late st Contact Info) Description 06/25/2006 Results Only [facility] - Maple conversion [address] [place] [address] hSeila Huffman MD [address] [place], [place] [id number] Social History Tobacco Use Types Packs/Day Years [...] Procedure Name Priority Date/Time Associated Diagnosis Comments HPV DETECTION, HIGH RISK TYPES Routine 06/25/2006 7:44 EDT CYTOPATHOLOGY Routine 06/25/2006 0:00 EDT documented in this encounter Results * HUMAN PAPILLOMA VIRUS DNA TEST (06/25/2006 7:44 EDT) Specimen Description Cervix, ThinPrep vial [facility] Result Negative for HPV types 16, 18, 31, 33, 35, 39, 45, 51, 52, 56, 58, 59, and 68. [facility] Report Status Final [id number] [facility] 06/25/2006 7:44 EDT 07/03/2006 7:44 EDT us Sheila Huffman MD MICROBIOLOGY - GENERAL ORDEREkta SIMENTAL Final Result [facility] [address] [place] [address] * CYTOPATHOLOGY (06/25/2006 0:00 EDT) Pathology Report: CYTOPATHOLOGY REPORT Reports generated via electronic interface contain original data; however they are lacking the format of the original report. Caution should be taken when reading/interpreti ng unformatted reports. Name: ? CARY LUNA ? Accession #: ? [id number] : ? 1950 (Age: 56) ??F ?Collect Date: ? 06/25/2006 Location: ? [facility] ? Receive Date: ? 06/27/2006 Provider: ?SHEILA HUFFMAN MD Copy to: ? Specimen/Source: ?ThinPrep Pap Test, Cervix/Endocervix, processed on [employer] ThinPrep Imaging System, with manual evaluation Last Menstrual Period: ? 03/13/06 Other: ? HPVDX - HPV testing requested regardless of diagnosis on current ThinPrep Pap test. ? SPECIMEN ADEQUACY ? Satisfactory for Evaluation - assessment of transformation zone component not applicable ( e.g. atrophy, vaginal sample, hysterectomy) GENERAL CATEGORIZATION ? Negative for Intraepithelial Lesion or Malignancy ? Document reviewed and electronically signed by: ? HAKEEM Brito(ASCP) ? Report Date: ??07/02/2006 13:23 End of Report [facility] 06/25/2006 06/27/2006 us Sheila Huffman MD PATHOLOGY ORDERABLES Final Re sult [facility] [address] [place] [address] documented in this encounter Visit Diagnoses Not on filedocumented in this encounter
--- OUTSIDE RECORDS SUMMARY | 2024-04-18 00:18 | XMS_ITS | Encounter Summary ---
Author Organization [facility] Address [facility] [place] [address] Care Team Providers Care Kst Operator Name Role Phone Maddy Nicholas APRN Primary Care Provider Encounter Details Date Type Department Care Team (Latest Contact Info) Description 12/03/2023 Travel Social History Tobacco Use Types Packs/Day [...] on filedocumented in this encounter Care Teams Kst Operator Relationship Specialty Start Date End Date Maddy Nicholas APRN [address] [place] [address] PCP - General Geriatric Medicine 10/28/19 documented as of this encounter
--- OUTSIDE RECORDS SUMMARY | 2024-04-18 00:18 | XMS_ITS | Encounter Summary ---
Author Organization [facility] Address [facility] [place] [address] Care Team Providers Care Academic Affairs Assistant Name Role Phone Maddy Nicholas APRN Primary Care Provider Encounter Details Date Type Department Care Team (Latest Contact Info) Description 11/15/2022 Travel Social History Tobacco Use Types Packs/Day [...] on filedocumented in this encounter Care Teams Academic Affairs Assistant Relationship Specialty Start Date End Date Maddy Nicholas APRN [address] [place] [address] PCP - General Geriatric Medicine 10/28/19 documented as of this encounter
--- OUTSIDE RECORDS SUMMARY | 2024-04-18 00:18 | XMS_ITS | Clinical Summary ---
Author Organization Health system Address [address] [place] [address] Care Team Providers Care Vulcanizing Press Operator Name Role Phone Maddy Nicholas GINA Primary Care Provider [phone] Social History Tobacco Use Types Packs/Day Years Used Date Smoking Tobacco: Never Assessed Interpersonal Safety Answer Date Record ed Physically Hurt Never 10/05/2019 Verbally Threaten Not on file 10/05/2019 Comments Unknown Sex and Gender Information Value Date Recorded Sex Assigned at Not on file Legal Sex Female 17:40 EST Gender Identity Not on file Sexual Orientation Not on file Plan of Treatment Health Maintenance Due Date Last Done Comments Hepatitis C Screen 1950 Fall Risk Screening 2016 COVID-19 Vaccine (2023- season) 2023 RSV Immunization ( o r 60+ Years) (1 - 1-dose 75+ series) 2026 Insurance [facility] [place] MEDICARE [employer] Care Teams Vulcanizing Press Operator Relationship Specialty Start Date End Date Maddy Nicholas APRN PCP - General Family Medicine - [facility] Medicine 08/11/19
--- OUTSIDE RECORDS SUMMARY | 2024-04-18 00:18 | XMS_ITS | Encounter Summary ---
Author Organization [facility] Address [address] [place] [address] Care Team Providers Care Inside Sales Recruiter Name Role Phone Unavailable Primary Care Provider Unavailabl e Encounter Details Date Type Department Care Team (Late st Contact Info) Description 05/23/2007 Results Only [facility] - Maple conversion [address] [place] [address] Maylin Hinojosa PA Social History Tobacco Use [...] Comments HPV DETECTION, HIGH RISK TYPES Routine 05/23/2007 14:30 EDT CYTOPATHOLOGY Routine 05/23/2007 0:00 EDT documented in this encounter Results * HUMAN PAPILLOMA VIRUS DNA TEST (05/23/2007 14:30 EDT) Specimen Description Cervix, ThinPrep vial [facility] Result Negative for HPV types 16, 18, 31, 33, 35, 39, 45, 51, 52, 56, 58, 59, and 68. [facility] Report Status Final [id number] [facility] 05/23/2007 14:3 0 EDT 05/30/2007 11:41 EDT Maylin STAFFORD MICROBIOLOGY - GENERAL ORDERABLE S Final Result [facility] [address] [place] [address] * CYTOPATHOLOGY (05/23/2007 0:00 EDT) Pathology Report: CYTOPATHOLOGY REPORT Reports generated via electronic interface contain original data; however they are lacking the format of the original report. Caution should be taken when reading/interpreti ng unformatted reports. Name: ? CONSTANZA LUNA ? Accession #: ? [id number] : ? 1950 (Age: 57) ??F ?Collect Date: ? 05/23/2007 Location: ? [facility] ? Receive Date: ? 05/24/2007 Provider: ?MAYLIN STAFFORD Copy to: ? Specimen/Source: ?ThinPrep Pap Test, Cervix/Endocervix, processed on [employer] ThinPrep Imaging System, with manual evaluation Last Menstrual Period: ? 2007 Menstrual/Pregnanc y Status: ? Post Menopausal Other: ? HPVDX - HPV testing requested regardless of diagnosis on current ThinPrep Pap test. ? SPECIMEN ADEQUACY ? Satisfactory for Evaluation - transformation zone component present GENERAL CATEGORIZATION ? Negative for Intraepithelial Lesion or Malignancy ? Document reviewed and electronically signed by: ? Sheila Oconnor, SCT(ASCP) ? Report Date: ??05/29/2007 17:16 End of Report [facility] 05/23/2007 05/24/2007 us Maylin STAFFORD PATHOLOGY ORDERABLES Final Resul t [facility] [address] [place] [address] documented in this encounter Visit Diagnoses Not on filedocumented in this encounter
--- OUTSIDE RECORDS SUMMARY | 2024-04-18 00:18 | XMS_ITS | Encounter Summary ---
Author Organization [facility] Address [address] [place] [address] Care Team Providers Care Car Worker Name Role Phone Unavailable Primary Care Provider Unavailabl e Encounter Details Date Type Department Care Team (Late st Contact Info) Description 02/23/2000 Results Only [facility] - Maple conversion [address] [place] [address] Jimena Lee MD [address] [address] Social History Tobacco Use Types Packs/Day Years [...] Procedure Name Priority Date/Time Associated Diagnosis Comments CYTOPATHOLOGY Routine 02/23/2000 0:00 EST documented in this encounter Results * CYTOPATHOLOGY (02/23/2000 0:00 EST) Pathology Report: CYTOPATHOLOGY REPORT Reports generated via electronic interface contain original data; however they are lacking the format of the original report. Caution should be taken when reading/interpreti ng unformatted reports. Name: ? CONSTANZA LUNA ? Accession #: ? [id number] : ? 1950 (Age: 49) ??F ?Collect Date: ? 02/23/2000 Location: ? [facility] ? Receive Date: ? 02/29/2000 Provider: ?JIMENA LEE MD Copy to: ? Specimen/Source: ?Conventional Pap Test, Cervix/Endocervix Last Menstrual Period: ? 02/14/00 Previous Gynecologic Pathology: ? Yes ? SPECIMEN ADEQUACY ? Satisfactory for evaluation. GENERAL CATEGORIZATION ? Within Normal Limits ? Document reviewed and electronically signed by: ? Sheila Oconnor, SCT(ASCP) ? Report Date: ??03/01/2000 07:16 End of Report [facility] 02/23/2000 02/29/2000 us Jimena Lee MD PATHOLOGY ORDERABLES Final Resul t [facility] [address] [place] [address] documented in this encounter Visit Diagnoses Not on filedocumented in this encounter
--- OUTSIDE RECORDS SUMMARY | 2024-04-18 00:18 | XMS_ITS | Encounter Summary ---
Author Organization [facility] Address [address] [place] [address] Care Team Providers Care Linux Unix Administrator Name Role Phone Unavailable Primary Care Provider Unavailabl e Encounter Details Date Type Department Care Team (Late st Contact Info) Description 08/10/2010 Results Only [facility] [address] [place], [place] [id number] Sheila Cullen MD [address] [place], [place] [id number] Social History Tobacco Use Types Packs/Day Years [...] Diagnosis Comments PAP TEST- RESULT ONLY Routine 08/10/2010 0:00 EDT documented in this encounter Results * PAP TEST- RESULT ONLY (08/10/2010 0:00 EDT) Pathology Report: CYTOPATHOLOGY REPORT ? Reports generated via electronic interface contain original data; ? however they are lacking the format of the original report. ? Caution should be taken when reading/interpreti ng unformatted reports. ? Name: ? CARY LUNA ? Accession #: ? [id number] ? : ? 1950 (Age: 60) ??F ?Collect Date: ? 08/10/2010 ? Location: ? [facility] ? Receive Date: ? 08/11/2010 ? Provider: SHEILA GRESSER MD ? Copy to: ? Final Report ? SPECIMEN ADEQUACY ? Satisfactory for Evaluation ? - assessment of transformation zone component not applicable ( e.g. atrophy, ? vaginal sample, hysterectomy) ? GENERAL CATEGORIZATION ? Negative for Intraepithelial Lesion or Malignancy ? Menstural/Pregnanc y Status: ??Post Menopausal ? Specimen/Source: ??Pap Test, Cervix/Endocervix, ThinPrep Imaging System with ? manual evaluation ? Document reviewed and electronically signed by: ? Reji Warner, [place](ASCP) ? Report ??Date: 08/18/2010 10:03 ? HPV with Pap Test ? Date Ordered: ? 08/18/2010 ? Status: ?? Signed Out ?Date Complete: ? 08/22/2010 ? By: ??System Interface ? Date Reported: ? 08/22/2010 ? Interpretation ? RESULT: Negative for HPV types 16, 18, 31, 33, 35, 39, 45, 51, 52, ? 56, 58, 59, and 68. ? Comments ? Document reviewed and electronically signed by: ? System Interface ? Report date: 08/22/2010 ? By the signature above, the attending physician certifies that he/she has ? personally conducted a gross and/or microscopic examination of the described ? specimens and rendered or confirmed the above diagnosis. ? End of Report ? [facility] 08/10/2010 08/11/2010 us Sheila Cullen MD PATHOLOGY ORDERABLES Final Re sult Performing Organization Address City/State/[facility] Co de Phone Number [facility] [address] [place] [address] documented in this encounter Visit Diagnoses Not on filedocumented in this encounter
--- OUTSIDE RECORDS SUMMARY | 2024-04-18 00:18 | XMS_ITS | Encounter Summary ---
Author Organization [facility] Address [address] [place] [address] Care Team Providers Care Gold Layer Name Role Phone Maddy Nicholas GINA Primary Care Provider [phone] Encounter Details Date Type Department Care Team (Late st Contact Info) Description 08/11/2019 Lab Requisition [facility] Pathology & Laboratory Medicine - [facility] [address] [place] [address] Felicia Hawk [address] [place] [address] [place] [id number] Encounter for other general examination Social History Tobacco Use Types Packs/Day Years [...] Procedure Name Priority Date/Time Associated Diagnosis Comments SURGICAL PATHOLOGY Today 08/11/2019 12 :07 EDT Encounter for other general examination documented in this encounter Results * SURGICAL PATHOLOGY (08/11/2019 12:07 EDT) Final Diagnosis A. ENDOMETRIUM, BIOPSY: - Benign endometrial polyp - Background atrophic endometrium 08/13/2019 14:47 EDT [facility] at 1446 Attestation There was significant resident/fellow involvement in the diagnostic evaluation of this case. By the signature below, the attending physician certifies that they have personally conducted a gross and/or microscopic examination of the described specimens and rendered or confirmed the above diagnosis. 08/13/2019 14:47 EDT [facility] at 1446 Clinical History Thickened endometrial stripe in postmenopause 08/13/2019 14:47 EDT [facility] Gross Description A. Received in formalin labelled with proper patient identification (initials V, K) and endometrium is a white-stevens rubbery tissue admixed with clear mucus (1.0 x 0.7 x 0.3 cm). The tissue is bisected and the specimen is entirely submitted in A1. Daniela Isbell 08/12/2019 8:40 08/13/2019 14:47 EDT [facility] Resident/Chris w: Satish Polk MD 08/13/2019 14:47 EDT [facility] Scanned Images 08/13/2019 14:47 T [facility] Tissue ENTIRE ENDOMETRIUM / Unknown 08/11/2019 12:07 EDT 08/11/2019 23:25 EDT Felicia Hawk PATHOLOGY ORDERABLES Final Resul t [facility] [address] [place] [address] documented in this encounter Visit Diagnoses Diagnosis Encounter for other general examination documented in this encounter Care Teams Gold Layer Relationship Specialty Start Date End Date Maddy Nicholas APRN PCP - General Family Medicine - [facility] Medicine 08/11/19 documented as of this encounter
--- OUTSIDE RECORDS SUMMARY | 2024-04-18 00:18 | XMS_ITS | Referral Summary ---
Author Organization [facility] Address [address] [place] [address] Care Team Providers Care Wilderness Guide Name Role Phone Maddy Nicholas GINA Primary Care Provider [phone] Social History Tobacco Use Types Packs/Day Years Used Date Smoking Tobacco: Never Assessed Interpersonal Safety Answer Date Record ed Physically Hurt Never 10/05/2019 Verbally Threaten Not on file 10/05/2019 Comments Unknown Sex and Gender Information Value Date Recorded Sex Assigned at Not on file Legal Sex Female 17:40 EST Gender Identity Not on file Sexual Orientation Not on file Plan of Treatment Not on file Insurance [facility] [place] [facility] Address: [address] [address] MEDICARE [employer] [place] Care Teams Wilderness Guide Relationship Specialty Start Date End Date Maddy Nicholas APRN PCP - General Family Medicine - [facility] Medicine 08/11/19
--- OUTSIDE RECORDS SUMMARY | 2024-04-18 00:19 | XMS_ITS | Encounter Summary ---
[place] [address] Care Team Providers Care Air Intelligence Officer Name Role Phone Sheila Grey MD Primary Care Provider Sean nielsen Encounter Details Date Type Department Care Team (Latest Contact Info) Description 10/24/2018 8:39 AM EDT - 10/24/2018 11:59 PM EDT Hospital Encounter Mammography/[place] [id number] Sheila Grey MD Visit for screening mammogram Discharge Disposition: Home [...] Sig Dispensed Refills Start Date End Date triamcinolone (KENALOG) 0.1 % OintmentIndications:Irri tant hand [...] MAMMO SCREENING CAD AND JAIME BILATERAL Routine 10/24/2018 8:55 AM EDT Visit for screening mammogram documented in this encounter Results * Mammo Screening Cad and Jaime Bilateral (10/24/2018 8:55 AM EDT) Anatomical Region Laterality Modality Breast Bilateral Mammography Narrative 10/24/2018 9:12 AM EDT . Bilateral mammography Reason for exam: ROUTINE MAMMO; LAST MAMMO 10/17/17 Technique: CC and MLO views were obtained of each breast using standard 2-D mammography as well as 3-D tomosynthesis. Computer aided detection was used. Comparison: This is compared with prior images. Findings: The breasts are heterogeneously dense, which may obscure small masses. There are no suspicious microcalcifications, masses, or areas of distortion. The pattern is stable. Stable well-circumscribed bilateral masses, consistent with benign intramammary lymph nodes. Conclusion: No mammographic evidence of malignancy. Recommendation: Routine screening. BI-RADS Category 2: Benign findings. * ??The [employer] and The Society of Breast Imaging recommend annual screening beginning at age 40 for the general female population. * ??Screening should continue as long as a woman is in good health and is expected to live 10 more years or longer. * ??All women should be familiar with the known benefits, limitations, and potential harms linked to breast cancer screening. They also should know how their breasts normally look and feel and report any breast changes to a health care provider right away. * ??Some women, because of their family history, a genetic tendency, or certain other factors, should be screened with MRIs along with mammograms. (The number of women who fall into this category is very small.) The patient and health care provider should discuss the patient history and decide if earlier screening and breast MRI are appropriate. Thank you for letting us participate in the care of this patient. For questions regarding this report, please contact the number below. ? Sheila Grey MD IMG MAMMO ORDERABLES documented in this encounter Visit Diagnoses Diagnosis Visit for screening mammogram Other screening mammogram documented in this encounter Care Teams Air Intelligence Officer Relationship Specialty Start Date End Date Sheila Grey MD PCP - General Internal Medicine 08/31/16 10/27/19 documented as of this encounter
--- OUTSIDE RECORDS SUMMARY | 2024-04-18 00:19 | XMS_ITS | Encounter Summary ---
[place] [address] Care Team Providers Care Moisture Meter Reader Name Role Phone Sheila Cullen MD Primary Care Provider [phone] Encounter Details Date Type Department Care Team (Late st Contact Info) Description 04/11/2013 8:49 AM EST - 04/11/2013 11:59 PM [facility] Hospital [place] [id number] Lung nodule Social History Tobacco Use Types Packs/Day Years Used Date Smoking Tobacco: Former Cigarettes Q uit: 01/14/1972 Alcohol Use Standard Drinks/Week Comments Yes 0 (1 standard drink = 0.6 oz pure alcohol) a couple of glasses on the weekend Sex and Gender Information Value Date Recorded Sex Assigned at Not on file Gender Identity Not on file Sexual Orientation Not on file documented as of this encounter Medications at Time of Discharge Medication Sig Dispensed Refills Start Date End Date diphenhydrAMINE (BENADRYL) 25 mg tablet Take 25 mg by mouth every 6 hours as needed. melatonin 3 mg Tab Take 3 mg by mouth every evening. CALCIUM CARBONATE/VITAMIN D3 (CALCIUM WITH VITAMIN D3 ORAL) Take 1 tablet by mouth daily. 04/11/2017 levothyroxine (SYNTHROID) 75 mcg tablet Take 75 mcg by mouth daily. 03/21/2017 documented as of this encounter Plan of Treatment Not on file documented as of this encounter Procedures Procedure Name Priority Date/Time Associated Diagnosis Comments CT CHEST WO CONTRAST (GENERIC) Routine 04/11/2013 8:59 AM EST Solitary pulmonary nodule documented in this encounter Results * CT chest WO contrast (04/11/2013 8:59 AM EST) Anatomical Region Laterality Modality Chest Computed Tomogra phy 04/11/2013 8:59 AM EST Narrative 04/11/2013 9:[address] chest without contrast Clinical History F/u PET negative Left Lower Lobe nodule Technique 3.75 mm thick axial contiguous sections were obtained through the chest via helical acquisition without intravenous contrast administration using low radiation dose technique. Thin-section reconstructions as well as coronal and sagittal reformatted images were generated to aid in evaluation. ?? Comparison 12/27/2012; 08/23/2012; 05/21/2012. Findings Pulmonary parenchyma: The previously seen 11 mm nodular opacity at the base of the left lower lobe is essentially resolved, with minimal hazy residual, see series 3 image is 60 5 and 66 of the current examination compared to series 3 images 33 and 34 of the prior examination. One-view on coronal reconstruction series [id number], this appears as a small area of curvilinear scar. The pulmonary parenchyma is otherwise unremarkable Airways: No significant findings and unchanged. Pleura: No pleural effusion. Lymph nodes:No thoracic lymphadenopathy. Heart, pericardium, and great vessels:No pericardial effusion. Upper abdomen:Unchanged hepatic cysts. Skeletal structures:No significant interval findings. Impression Left lung base nodular opacity is essentially resolved, with residual curvilinear scarring, thus likely represented focal organizing inflammatory/infectious change. No new findings. Procedure Note Yaneth Garcia MD - 04/11/[address] chest without contrast Clinical History F/u PET negative Left Lower Lobe nodule Technique 3.75 mm thick axial contiguous sections were obtained through the chestvia helical acquisition without intravenous contrast administration using low radiation dose technique. Thin-section reconstructions as well as coronaland sagittal reformatted images were generated to aid in evaluation. Comparison 12/27/2012; 08/23/2012; 05/21/2012. Findings Pulmonary parenchyma: The previously seen 11 mm nodular opacity at thebase of the left lower lobe is essentially resolved, with minimal hazy residual,see series 3 image is 60 5 and 66 of the current examination compared toseries 3 images 33 and 34 of the prior examination. One-view on coronalreconstruction series [id number], this appears as a small area of curvilinear scar. Thepulmonary parenchyma is otherwise unremarkable Airways: No significant findings and unchanged. Pleura: No pleural effusion. Lymph nodes:No thoracic lymphadenopathy. Heart, pericardium, and great vessels:No pericardial effusion. Upper abdomen:Unchanged hepatic cysts. Skeletal structures:No significant interval findings. Impression Left lung base nodular opacity is essentially resolved, with residual curvilinear scarring, thus likely represented focal organizing inflammatory/infectious change. No new findings. Satish Bennett MD IMG CT ORDERABLES documented in this encounter Visit Diagnoses Diagnosis Lung nodule Solitary pulmonary nodule documented in this encounter Care Teams Moisture Meter Reader Relationship Specialty Start Date End Date Sheila Cullen MD [address] [place] [address] PCP - General 01/25/10 09/25/13 documented as of this encounter
--- OUTSIDE RECORDS SUMMARY | 2024-04-18 00:19 | XMS_ITS | Encounter Summary ---
[place] [address] Care Team Providers Care Attractions Associate Name Role Phone Sheila Huffman MD Primary Care Provider [phone] Reason for Visit * Reason Comments Other lesion on tonsil not ed on pet/scan Encounter Details Date Type Department Care Team (Late st Contact Info) Description 02/04/2013 3:00 PM EST Office [place] [phone] Harjeet Daniel MD [facility] [address] Cryptic tonsil (Primary Dx) Discharge Disposition: Home Social History Tobacco Use [...] on file documented as of this encounter Last Filed Vital Signs Vital Sign Reading Time Taken Comments Blood Pressure 140/60 02/04/2013 3:04 PM EST Pulse 70 02/04/2013 3:04 PM EST Temperature - - Respiratory Rate - - Oxygen Saturation - - Inhaled Oxygen Concentration - - Weight 63.5 kg (140 lb) 02/04/2013 3:04 PM EST Height 165.1 cm (5' 5) 02/04/2013 3:04 PM EST Body Mass Index 23.3 02/04/2013 3:04 PM EST documented in this encounter Progress Notes * Harjeet Daniel MD - 02/04/2013 3:35 PM EST Images from the original note were not included. Subjective: Patient ID: Cary López is a 62 y.o. female. HPI Cary López is seen in consultation from Satish Bennett MD and SHEILA HUFFMAN MD in regardsto abnormal incidental finding on PET-CT The history is obtained through patient interview, review of relevant records, and/or discussion with referring provider. Patient has a history of developing a cough following an URTI-like illness and subsequently noted to have a LLL nodule for which she was referred to Dr Bennett for management. She subsequently underwent a PET-CT last January which also noted presence of pharyngeal tonsil uptake asymmetry with faintly enhancing cervical nodes. She has not noted any recent URTI. Has some GERD which is mild. No cough. NO PND/sinus disease. No hx of tonsil problems in the past. NO VPI. Former smoker 40 years ago: 1/2ppd x 3 years. Occasional EtOH. No IVDU, nor chewing tobacco. The following records were reviewed: office records, PEt-CT scan History reviewed. No pertinent past medical history. History reviewed. No pertinent past surgical history. Current outpatient prescriptions:levothyroxine (SYNTHROID) 75 mcg tablet, Take 75 mcg by mouth daily., Disp: , Rfl: ; melatonin 3 mg Tab, Take 3 mg by mouth every evening., Disp: , Rfl: Allergies Allergen Reactions ??? Sulfa (Sulfonamide Antibiotics) Patient Active Problem List Diagnosis Code ??? Abnormal CT scan of lung 793.19 ??? Cryptic tonsil 474.8 No family history on file. There is no pertinent family history of otolaryngologic problems Review of Systems: A complete review of constitutional, eyes, cardiovascular, respiratory, GI, , musculo-skeletal, skin, endocrine, psychiatric, hematologic, lymphatic and immunologic systems is completed and is as noted in the HPI. All other systems are otherwise negative. History Social History ??? Marital Status: Spouse Name: N/A Number of Children: N/A ??? Years of Education: N/A Occupational History ??? Not on file. Social History Main Topics ??? Smoking status: Former Smoker Quit date: 01/14/1972 ??? Smokeless tobacco: Not on file ??? Alcohol Use: Yes a couple of glasses on the weekend ??? Drug Use: No ??? Sexually Active: Other Topics Concern ??? Not on file Social History Narrative ??? No narrative on file Review of Systems Objective: Physical Exam Constitutional: She is oriented to person, place, and time. She appears well- developed. No distress. HENT: Head: Normocephalic. Right Ear: Tympanic membrane, external ear and ear canal normal. No middle ear effusion. Left Ear: Tympanic membrane, external ear and ear canal normal. No middle ear effusion. Nose: No mucosal edema or nasal deformity. Right sinus exhibits no maxillary sinus tenderness and no frontal sinus tenderness. Left sinus exhibits no maxillary sinus tenderness and no frontal sinus tenderness. Mouth/Throat: Uvula is midline, oropharynx is clear and moist and mucous membranes are normal. Orallesions present. Normal dentition. No oropharyngeal exudate or posterior oropharyngeal erythema. Eyes: Conjunctivae normal are normal. Pupils are equal, round, and reactive to light. No scleral icterus. Neck: Trachea normal, normal range of motion and full passive range of motion without pain. Neck supple. No tracheal deviation present. No thyromegaly present. Pulmonary/Chest: Effort normal. No stridor. No respiratory distress. Lymphadenopathy: Head (right side): No submental adenopathy present. She has no cervical adenopathy. Right cervical: No superficial cervical and no deep cervical adenopathy present. Left cervical: No superficial cervical and no deep cervical adenopathy present. Neurological: She is alert and oriented to person, place, and time. She has normal reflexes. No cranial nerve deficit. Skin: Skin is warm. She is not diaphoretic. No erythema. Psychiatric: She has a normal mood and affect. Her behavior is normal. Judgment and thought contentnormal. Indirect Laryngoscopy Using a laryngeal mirror, we noted normal appearing vocal cords, with normal function. No lesion noted. Assessment and Plan: Patient with hx of LLL nodule, suspect for lung cancer with incidental FDG uptake asymmetry in pharyngeal tonsils that appears to be related to R cryptic tonsillitis. Patient is asymptomatic from this and we discussed pro/cons of tonsillectomy. I do not believe there is a significnat benefit considering potential risks. In addition, has not had progressive throat symptoms. Discussed that I would be happy to see her again if she has progressive symptoms. documented in this encounter Plan of Treatment Not on file documented as of this encounter Visit Diagnoses Diagnosis Cryptic tonsil- Primary Other chronic disease of tonsils and adenoids documented in this encounter Care Teams Attractions Associate Relationship Specialty Start Date End Date Sheila Huffman MD [address] [place] [address] PCP - General 01/25/10 09/25/13 documented as of this encounter
--- OUTSIDE RECORDS SUMMARY | 2024-04-18 00:19 | XMS_ITS | Encounter Summary ---
Author Organization [facility] [place] [address] Care Team Providers Care Engineering Associate Name Role Phone Sheila Cullen MD Primary Care Provider [phone] Encounter Details Date Type Department Care Team (Late st Contact Info) Description 05/21/2012 External Results XRay at [address] [place] [address] Sheila Cullen MD [address] [place], [place] [id number] Social History Tobacco Use Types Packs/Day Years Used Date Smoking Tobacco: Never Assessed Sex and Gender Information Value Date Recorded Sex Assigned at Not on file Gender Identity Not on file Sexual Orientation Not on file documented as of this encounter Plan of Treatment Not on file documented as of this encounter Procedures Procedure Name Priority Date/Time Associated Diagnosis Comments DIAGNOSTIC RADIOLOGY SCAN Routine 05/15/2012 documented in this encounter Results * Scan Doc: Diagnostic Radiology (05/15/2012) Anatomical Region Laterality Modality Other Sheila Cullen MD MEDIA MGR SCAN EXT O RDR/RSLT documented in this encounter Visit Diagnoses Not on filedocumented in this encounter Care Teams Engineering Associate Relationship Specialty Start Date End Date Sheila Cullen MD [address] [place] [address] PCP - General 01/25/10 09/25/13 documented as of this encounter
--- OUTSIDE RECORDS SUMMARY | 2024-04-18 00:19 | XMS_ITS | Encounter Summary ---
[place] [address] Care Team Providers Care Sterile Supply Technician Name Role Phone Sheila Cullen MD Primary Care Provider [phone] Encounter Details Date Type Department Care Team (Latest Contact Info) Description 01/13/2013 10:47 AM EST - 01/13/2013 11:59 PM [facility] Hospital [place] [phone] SCHEDULE 1, PFT Satish Bennett MD Abnormal CT scan of lung (Primary Dx) Discharge Disposition: Home Social History [...] Sig Dispensed Refills Start Date End Date melatonin 3 mg Tab Take 3 mg by mouth every evening. levothyroxine (SYNTHROID) 75 mcg tablet Take 75 mcg by mouth daily. 03/21/2017 documented as of this encounter Procedure Notes * Kevin Mercer Jr., MD - 01/13/2013 5:00 PM ESTAssociated Order(s): PULMONARY FUNCTION TEST Pulmonary Function Testing Spirometry is normal. Diffusing capacity is elevated. In the proper clinical context, this can suggest asthma, high output cardiac state, or pulmonary hemorrhage. Oxygen saturation is normal. Kevin Mercer MD Pulmonary Medicine documented in this encounter Plan of Treatment Not on file documented as of this encounter Procedures Procedure Name Priority Date/Time Associated Diagnosis Comments COMMON PULMONARY FUNCTION TEST Routine 01/14/2013 8:[address] scan of lung documented in this encounter Results * Pulmonary Function Testing (01/14/2013 8:59 AM EST) Narrative Kevin Mercer Jr., MD - 01/14/2013 8:59 AM EST Kevin Mercer Jr., MD ? 01/14/2013 ??8:59 AM Pulmonary Function Testing Spirometry is normal. ??Diffusing capacity is elevated. ??In the proper clinical context, this can suggest asthma, high output cardiac state, or pulmonary hemorrhage. ??Oxygen saturation is normal. Kevin Mercer MD Pulmonary Medicine Procedure Note Kevin Mercer Jr., MD - 01/13/2013 5:00 PM EST Pulmonary Function Testing Spirometry is normal. Diffusing capacity is elevated. In the properclinical context, this can suggest asthma, high output cardiac state, orpulmonary hemorrhage. Oxygen saturation is normal. Kevin Mercer MD Pulmonary Medicine Satish Bennett MD PFT ORDERABLES documented in this encounter Visit Diagnoses Diagnosis Abnormal CT scan of lung- Primary Other nonspecific abnormal finding of lung field documented in this encounter Care Teams Sterile Supply Technician Relationship Specialty Start Date End Date Sheila Cullen MD [address] [place] [address] PCP - General 01/25/10 09/25/13 documented as of this encounter
--- OUTSIDE RECORDS SUMMARY | 2024-04-18 00:19 | XMS_ITS | Encounter Summary ---
[place] [address] Care Team Providers Care Barber Tool Sharpener Name Role Phone Shiela Cullen MD Primary Care Provider [phone] Encounter Details Date Type Department Care Team (Latest Contact Info) Description 01/22/2013 11:27 AM EST - 01/22/2013 11:59 PM EST Hospital Encounter [place] [id number] CLINIC, DR SABINA Bennett, Satish Vargas MD Abnormal CT scan of lung Discharge Disposition: Home Social History Tobacco Use [...] Procedure Name Priority Date/Time Associated Diagnosis Comments NM PET CT SKULL BASE TO MID-THIGH ([facility]) Routine 01/22/2013 1:[address] scan of lung POCT GLUCOSE Routine 01/22/2013 11:39 AM EST documented in this encounter Results * (ABNORMAL) PET/CT STANDARD (Skull base to Mid-thigh) (01/22/2013 1:05 PM EST) Anatomical Region Laterality Modality Other 01/22/2013 1:05 PM EST Narrative 01/22/2013 5:08 PM EST Examination PET/CT STANDARD (Skull base to Mid-thigh) Technique Procedure: Following IV injection of 56-ukrunp-6-deoxyglucose (FDG) and a standard uptake period, a non-contrast CT scan followed by a PET scan were acquired from the base of the skull to mid-thighs. The non-contrast CT was used for anatomic localization and photon attenuation correction of the PET scan. Blood Glucose Level (mg/dL):103 FDG Dose(mCi):9.6(0.15 mCi/kg to maximum of 18 mCi). Pre-medication: None Clinical History LLL nodule. Probable lung cancer. Staging Comparison CT chest 12/27/2012 and 08/23/2012. Head/Neck Asymmetrically increased tracer activity is seen in the right pharyngeal tonsil region. ??Several small sub cm size lymph nodes is seen in the bilateral level 2 regions (axial image 13 and 19). ??Diffusely increased activity is seen in both lobes of the thyroid, likely representing a thyroiditis. ??Normal activity in all other soft tissue regions of the neck and visualized lower head. Chest A cluster of hypermetabolic benign-appearing lymph nodes is present in the left axilla. ??Focal activity is also noted in the deltoid muscle left upper arm. ?? The constellation of these findings is consistent with the patient having a vaccine injection in the left L2 and with reactive left axillary lymph nodes. CT visualized 10 mm non calcified nodule in the posterior base of the left lower lobe has no visible FDG uptake. ??This nodule appear slightly increased in size compared to the prior remote CT scan of 08/23/2012. ??Normal activity in all other soft tissue regions. Abdomen/Pelvis Normal activity in all soft tissue regions. ??Incidental CT finding of several benign appearing hepatic cysts in the right and left hepatic lobes. ??No significant adenopathy is seen on CT scan. ?? Skeleton/Extremities Normal marrow activity throughout the axial and visualized proximal appendicular skeleton. Impression ? 1. The CT visualized 10 mm pulmonary nodule in the posterior base of the left lower lobe has no significant metabolic activity. ??This nodule appears slightly increased in size compared to prior CT of 08/23/2012. ??An indolent type lung neoplasm is not excluded. ??Continued followup with CT scans is recommended. ? 2. Unexpected finding of asymmetrically increased activity in the right pharyngeal tonsil region and several small hypermetabolic bilateral level 2 neck nodes. ??These are nonspecific findings that may represent a benign inflammatory etiology, however, a neoplastic process is not excluded. ??Consider direct visualization. ? 3. Incidental finding of diffuse activity in both lobes of the thyroid, consistent with a thyroiditis (patient is on thyroid hormone replacement). ? 4. Hypermetabolic focus in the left deltoid and a cluster of benign appearing hypermetabolic left axillary nodes. ??This is most likely due to recent vaccination. ??Please correlate with history recent flu shot in the left arm. Resulting Agency Comment Unexpected Finding Procedure Note Kian Davis MD - 01/22/2013 Examination PET/CT STANDARD (Skull base to Mid-thigh) Technique Procedure: Following IV injection of 83-quwyvk-9-deoxyglucose (FDG) and a standard uptake period, a non-contrast CT scan followed by a PET scan were acquired from the base of the skull to mid-thighs. The non-contrast CT wasused for anatomic localization and photon attenuation correction of the PETscan. Blood Glucose Level (mg/dL):103 FDG Dose(mCi):9.6(0.15 mCi/kg to maximum of 18 mCi). Pre-medication: None Clinical History LLL nodule. Probable lung cancer. Staging Comparison CT chest 12/27/2012 and 08/23/2012. Head/Neck Asymmetrically increased tracer activity is seen in the right pharyngealtonsil region. Several small sub cm size lymph nodes is seen in the bilaterallevel 2 regions (axial image 13 and 19). Diffusely increased activity is seen inboth lobes of the thyroid, likely representing a thyroiditis. Normal activityin all other soft tissue regions of the neck and visualized lower head. Chest A cluster of hypermetabolic benign-appearing lymph nodes is present in theleft axilla. Focal activity is also noted in the deltoid muscle left upperarm. The constellation of these findings is consistent with the patient havinga vaccine injection in the left L2 and with reactive left axillary lymphnodes. CT visualized 10 mm non calcified nodule in the posterior base of the left lower lobe has no visible FDG uptake. This nodule appear slightlyincreased in size compared to the prior remote CT scan of 08/23/2012. Normal activityin all other soft tissue regions. Abdomen/Pelvis Normal activity in all soft tissue regions. Incidental CT finding ofseveral benign appearing hepatic cysts in the right and left hepatic lobes. No significant adenopathy is seen on CT scan. Skeleton/Extremities Normal marrow activity throughout the axial and visualized proximal appendicular skeleton. Impression 1. The CT visualized 10 mm pulmonary nodule in the posterior base ofthe left lower lobe has no significant metabolic activity. This noduleappears slightly increased in size compared to prior CT of 08/23/2012. Anindolent type lung neoplasm is not excluded. Continued followup with CT scans is recommended. 2. Unexpected finding of asymmetrically increased activity in theright pharyngeal tonsil region and several small hypermetabolic bilateral level2 neck nodes. These are nonspecific findings that may represent a benign inflammatory etiology, however, a neoplastic process is not excluded.Consider direct visualization. 3. Incidental finding of diffuse activity in both lobes of thethyroid, consistent with a thyroiditis (patient is on thyroid hormone replacement). 4. Hypermetabolic focus in the left deltoid and a cluster of benign appearing hypermetabolic left axillary nodes. This is most likely due to recent vaccination. Please correlate with history recent flu shot in theleft arm. Satish Bennett MD IMG PET ORDERABLES * POCT Glucose (01/22/2013 11:39 AM EST) Glucose, POC 103 60 - 199 mg/dL [facility] Comment: Supplemental ranges: <110 mg/dL before meals <200 mg/dL all other times of the day Blood specimen (specimen) 01/22/2013 11:39 AM EST 01/22/2013 11:39 AM EST Satish Bennett MD POINT OF CARE TEST O RDERABLES Performing Organization Address City/State/[facility] [place] Phone Number [facility] documented in this encounter Visit Diagnoses Diagnosis Abnormal CT scan of lung Other nonspecific abnormal finding of lung field documented in this encounter Care Teams Barber Tool Sharpener Relationship Specialty Start Date End Date Sheila Cullen MD [address] [place] [address] PCP - General 01/25/10 09/25/13 documented as of this encounter
--- OUTSIDE RECORDS SUMMARY | 2024-04-18 00:19 | XMS_ITS | Encounter Summary ---
Author Organization [facility] [place] [address] Care Team Providers Care Direct Care Supervisor Name Role Phone Sheila Grey MD Primary Care Provider Sean nielsen Encounter Details Date Type Department Care Team (Latest Contact Info) Description 10/17/2017 3:15 PM EDT - 10/17/2017 11:59 PM EDT Hospital Encounter [place] [address] Sheila Grey MD Encounter for screening mammogram for breast cancer Discharge Disposition: Home Social History Tobacco Use [...] Sig Dispensed Refills Start Date End Date magnesium oxide (MAG-OX) 400 mg Tablet Take [...] Take 3 mg by mouth every evening. DOCOSAHEXANOIC ACID/EPA (FISH OIL ORAL) Take 1,200 Units by mouth daily. 09/27/2018 documented as of this encounter Plan of Treatment Not on file documented as of this encounter Procedures Procedure Name Priority Date/Time Associated Diagnosis Comments MAMMO SCREENING CAD AND JAIME BILATERAL Routine 10/17/2017 3:46 PM EDT Encounter for screening mammogram for breast cancer documented in this encounter Results * Mammo Screening Cad and Jaime Bilateral (10/17/2017 3:46 PM EDT) Anatomical Region Laterality Modality Breast Bilateral Mammography Narrative 10/17/2017 4:29 PM EDT BILATERAL MAMMOGRAPHY REASON FOR EXAM: Screening TECHNIQUE: CC and MLO views were obtained of each breast using standard 2-D mammography as well as 3-D tomosynthesis. Computer aided detection was used. This is compared with prior images. FINDINGS: ??The breasts are heterogeneously dense, which may obscure small masses. There are no suspicious microcalcifications, masses, or areas of distortion. The pattern is stable. CONCLUSION: No mammographic evidence of malignancy. RECOMMENDATION: The [employer] and The Society of Breast Imaging recommend annual screening beginning at age 40 for the general female population. Screening should continue as long as a woman is in good health and is expected to live 10 more years or longer. All women should be familiar with the known benefits, limitations, and potential harms linked to breast cancer screening. They should also know how their breasts normally look and feel and report any breast changes to a health care provider right away. Some women - because of their family history, a genetic tendency, or certain other factors - should be screened with MRIs along with mammograms. (The number of women who fall into this category is very small.) The patient and health care provider should discuss the patient history and decide if earlier screening and breast MRI are appropriate. A result letter has been sent to this patient by the [facility]. [facility] Sheila Grey MD IMG MAMMO ORDERABLES documented in this encounter Visit Diagnoses Diagnosis Encounter for screening mammogram for breast cancer documented in this encounter Care Teams Direct Care Supervisor Relationship Specialty Start Date End Date Sheila Grey MD PCP - General Internal Medicine 08/31/16 10/27/19 documented as of this encounter
--- OUTSIDE RECORDS SUMMARY | 2024-04-18 00:19 | XMS_ITS | Encounter Summary ---
[place] [address] Care Team Providers Care Shot Tube Machine Tender Name Role Phone Maddy Nicholas APRN Primary Care Provider [phone] Encounter Details Date Type Department Care Team (Late st Contact Info) Description 10/25/2022 Telephone Mammography/[place] [phone] Maddy Nicholas APRN [address] [place], [place] [address] Social History Tobacco Use Types Packs/Day Years [...] on filedocumented in this encounter Care Teams Shot Tube Machine Tender Relationship Specialty Start Date End Date Maddy Nicholas APRN [address] [place], [place] [id number] PCP - General Geriatric Medicine 10/28/19 documented as of this encounter
--- OUTSIDE RECORDS SUMMARY | 2024-04-18 00:19 | XMS_ITS | Encounter Summary ---
Author Organization [facility] Address [facility] [place] [address] Care Team Providers Care Pet Care Assistant Name Role Phone Sheila Grey MD Primary Care Provider Unavaila ble Reason for Visit * Reason Comments Skin Check Encounter Details Date Type Department Care Team (Late st Contact Info) Description 09/27/2017 10:00 AM EDT Office Visit Dermatology at [facility] [address] [place] [address] Adalberto Melchor MD [facility] [address] [place] [address] [place] (actinic keratosis); Duncan angioma; Seborrheic keratoses Social History Tobacco Use Types Packs/Day Years [...] as of this encounter Progress Notes * Adalberto Melchor - 09/27/2017 10:00 AM EDT Images from the original note were not included. DERMATOLOGY - ESTABLISHED PATIENT FOLLOW-UP Date of service: 09/27/2017 Cary López : 1950, 67 y.o. Chief Complaint: Chief Complaint Patient presents with ??? Skin Check HPI: Cary López is a 67 y.o. female last seen by Fabiano Mcmullen 08/31/2016. Ms. López returns today for for a full skin check. Pt states she has several red spots on her back. Denies pain or bleeding from lesions. Otherwise asymptomatic Relevant Skin History: - Skin cancer (including type): None Family History: Melanoma: none Social History: - Retired. Denies heavy sun exposure Medications: Current Outpatient Prescriptions Medication Sig Dispense Refill ??? magnesium oxide (MAG-OX) 400 mg Tablet Take 400 mg by mouth daily. ??? levothyroxine (SYNTHROID) 88 mcg Tablet Take 88 mcg by mouth daily. Sunday,Sunday, and Sunday ??? levothyroxine (SYNTHROID) 50 mcg Tablet Take 50 mcg by mouth daily. Take on Sunday, Sunday and Sunday ??? cholecalciferol, Vitamin D3, (CHOLECALCIFEROL, VITAMIN D3,) 2,000 unit Capsule Take 2,000 Unitsby mouth daily. ??? DOCOSAHEXANOIC ACID/EPA (FISH OIL ORAL) Take 1,200 Units by mouth daily. ??? Red Yeast Rice Extract 600 mg Capsule Take 600 mg by mouth daily. ??? diphenhydrAMINE (BENADRYL) 25 mg tablet Take 25 mg by mouth every 6 hours as needed. ??? melatonin 3 mg Tab Take 3 mg by mouth every evening. No current facility-administered medications for this visit. Allergies: Allergies Allergen Reactions ??? Sulfa (Sulfonamide Antibiotics) Review of Systems: - General: Feels well. - Skin: No other skin concerns. Examination: - Constitutional: Patient was alert, well-appearing and in no noticeable distress. - Skin:Patient was asked to disrobe to the level of their comfort. A total body skin exam except for areas covered by underwear was performed. This includes examination of the skin of the face, ears,neck, chest, axillae, left and right upper and lower extremities, hands and feet, abdomen, and except the areas covered by underwear were not examined. Diagnosis/Skin findings/Assessment/Plan: 1. Seborrheic keratosis.- Multiple 0.4-0.6cm brown papules with waxy, stuck-on appearance. Milia-like cysts, comedone-like openings and/or fissuring on dermoscopy on her back -pt reassured; Advised pt will get more with increasing age 2. 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 No further intervention required 3. Actinic Keratosis-left conchal bowl 0.2-0.3cm scaly irregular pink papule -Advised premalignant lesions <2% of conversion to NMSC Procedure Note: Procedure: Destruction of lesion(s) with cryotherapy. Number: 1 Location: as above Discussed procedure and expectations including risks (including risk of hypopigmentation) and benefits. Verbal consent obtained. Frozen with LN2, 15-30 second thaw time, TWICE. There were no complications; the patient tolerated the procedure well. Post-procedure expectations and wound care were reviewed. RTC: One year, reminder placed in the system Note initiated by MIGUEL HERNANDEZ RN. I performed the above scribed service and agree with the accuracy of the documentation in this encounter. Reviewed and signed by: Adalberto Melchor MD Resident in Dermatology [facility] Patient seen and evaluated with staff applications systems analyst: Luz Marina Cardenas MD Section of Dermatology [facility] * Luz Marina Cardenas MD - 09/27/2017 10:00 AM EDT I directly supervised Dr. Melchor during this office visit. Dr. Melchor presented the history and physical exam to me. I then saw and examined this patient with Dr. Melchor. We reviewed the history and pertinent details and I confirmed the physical findings. I agree with the details of the history and physical exam as documented in Dr. Melchor' note. Luz Marina Cardenas MD Staff Physician documented in this encounter Plan of Treatment Not on file documented as of this encounter Visit Diagnoses Diagnosis AK (actinic keratosis) Actinic keratosis Duncan angioma Nevus, non-neoplastic Seborrheic keratoses documented in this encounter Care Teams Pet Care Assistant Relationship Specialty Start Date End Date Sheila Grey MD PCP - General Internal Medicine 08/31/16 10/27/19 documented as of this encounter
--- OUTSIDE RECORDS SUMMARY | 2024-04-18 00:19 | XMS_ITS | Encounter Summary ---
[place] [address] Care Team Providers Care Client Care Representative Name Role Phone Grisel Hinojosa Primary Care Provider [phone] Encounter Details Date Type Department Care Team (Latest Contact Info) Description 09/26/2013 10:57 AM EDT - 09/26/2013 11:59 PM EDT Hospital [place] [phone] CLINIC, Grisel [place]wood PA [address] [place] [id number] Discharge Disposition: Home Social History Tobacco Use [...] Date/Time Associated Diagnosis Comments MAMMO SCREENING CAD BILATERAL Routine 09/26/2013 11:25 AM EDT documented in this encounter Results * Mammo digital bilateral Screening with CAD (09/26/2013 11:25 AM EDT) Anatomical Region Laterality Modality Breast Bilateral Mammography 09/26/2013 11:2 5 AM EDT Narrative 09/29/2013 9:48 AM EDT Reason for Exam: Screening ?? Technique: Craniocaudal (CC) and Medio-lateral Oblique (MLO) views of both breasts obtained with direct digital capture. In addition to routine 2-D imaging, this exam was also performed with 3-D Tomographic Imaging (MLO and CC). ?? The exam was evaluated by CAD version 8.3.17. ?? Findings: ?? This is a negative mammogram (ACR Category 1). There is a stable fibroglandular pattern without significant change from prior studies. There is no mammographic evidence of cancer. The breasts are heterogeneously dense which limits mammographic sensitivity for the detection of malignancy. ?? CONCLUSION: This is a NEGATIVE mammogram (ACR Category 1). ?? Routine screening mammography is recommended with the frequency dependent upon the patients age and breast cancer risk factors. A letter has been sent to this patient by the breast imaging center. ?? Procedure Note Juanita Jeong MD - 09/29/2013 Reason for Exam: Screening Technique: Craniocaudal (CC) and Medio-lateral Oblique (MLO) views of both breasts obtained with direct digital capture. In addition to routine 2-D imaging, this exam was also performed with 3-D Tomographic Imaging (MLOand CC). The exam was evaluated by CAD version 8.3.17. Findings: This is a negative mammogram (ACR Category 1). There is a stablefibroglandular pattern without significant change from prior studies. There is no mammographic evidence of cancer. The breasts areheterogeneously dense which limits mammographic sensitivity for the detection ofmalignancy. CONCLUSION: This is a NEGATIVE mammogram (ACR Category 1). Routine screening mammography is recommended with the frequency dependentupon the patients age and breast cancer risk factors. A letter has been sent to this patient by the breast imaging center. Sheila Cullen MD IMG MAMMO ORDERABLES documented in this encounter Visit Diagnoses Not on filedocumented in this encounter Care Teams Client Care Representative Relationship Specialty Start Date End Date Grisel Hinojosa PA PCP - General 09/26/13 08/30/16 documented as of this encounter
--- OUTSIDE RECORDS SUMMARY | 2024-04-18 00:19 | XMS_ITS | Encounter Summary ---
Author Organization [facility] [place] [address] Care Team Providers Care Restaurant Supervisor Name Role Phone Sheila Grey MD Primary Care Provider Sean nielsen Encounter Details Date Type Department Care Team (Latest Contact Info) Description 11/01/2016 9:47 AM EDT - 11/01/2016 11:59 PM EDT Hospital [place] [address] Sheila Grey MD Encounter for screening mammogram [...] MAMMO SCREENING CAD AND JAIME BILATERAL Routine 11/01/2016 10:02 AM EDT Encounter for screening mammogram for breast cancer documented in this encounter Results * Mammo Screen CAD and Jaime Bilat (Generic) (11/01/2016 10:02 AM EDT) Anatomical Region Laterality Modality Breast Bilateral Mammography Narrative 11/01/2016 10:08 AM EDT BILATERAL MAMMOGRAPHY REASON FOR EXAM: [...] No mammographic evidence of malignancy. RECOMMENDATION: The [employer] and The Society of [...] [facility] Center. [facility] CATEGORY 1: NEGATIVE Sheila Grey MD IMG MAMMO ORDERABLES documented in this encounter Visit Diagnoses Diagnosis Encounter for screening mammogram for breast cancer documented in this encounter Care Teams Restaurant Supervisor Relationship Specialty Start Date End Date Sheila Grey MD PCP - General Internal Medicine 08/31/16 10/27/19 documented as of this encounter
--- OUTSIDE RECORDS SUMMARY | 2024-04-18 00:19 | XMS_ITS | Encounter Summary ---
[place] [address] Care Team Providers Care Freelance Director Name Role Phone Sheila Cullen MD Primary Care Provider [phone] Encounter Details Date Type Department Care Team (Late st Contact Info) Description 01/13/2013 10:20 AM EST Clinical [place] [phone] Social History Tobacco Use Types Packs/Day Years [...] as of this encounter Progress Notes * Natalee Russo, RN - 01/13/2013 10:43 AM EST Patient seen in Pre Admission Testing today for upcoming surgery, stated by patient as date of 02/12/13. PAT Questionnaire reviewed with patient while in Pre Admission Testing. Pt has only had a colonoscopy in the past, did have vomiting after this. +reflux pt uses Tums occasionally also diet controlled. Pre-operative folder reviewed with patient. Patient expresses good understanding of all information reviewed. Labwork performed while in Pre-Admission Testing. Of note, pt reports some left sided pain. Lower sternal, no radiation, putting pressure on site improves the pain. Pt encourage to discuss pain with her PCP. May leave message to call back on home answering machine. May leave info with roberto. documented in this encounter Plan of Treatment Not on file documented as of this encounter Visit Diagnoses Not on filedocumented in this encounter Care Teams Freelance Director Relationship Specialty Start Date End Date Sheila Cullen MD [address] [place] [address] PCP - General 01/25/10 09/25/13 documented as of this encounter
--- OUTSIDE RECORDS SUMMARY | 2024-04-18 00:19 | XMS_ITS | Encounter Summary ---
[place] [address] Care Team Providers Care Acid Leveler Name Role Phone Maddy Nicholas APRN Primary Care Provider [phone] Encounter Details Date Type Department Care Team (Latest Contact Info) Description 10/18/2021 2:16 PM EDT - 10/18/2021 11:59 PM EDT Hospital Encounter Mammography[place] [id number] Maddy Nicholas APRN [address] [place] [address] Visit for screening mammogram Discharge Disposition: Home [...] MAMMO SCREENING CAD AND JAIME BILATERAL Routine 10/18/2021 2:31 PM EDT Visit for screening mammogram documented in this encounter Results * Mammo Screening Cad and Jaime Bilateral (10/18/2021 2:31 PM EDT) Anatomical Region Laterality Modality Breast Bilateral Mammography Narrative 10/18/2021 3:09 PM EDT BILATERAL MAMMOGRAPHY REASON FOR EXAM: [...] CONCLUSION: No mammographic evidence of malignancy. RECOMMENDATION: Regular screening mammograms starting between age 40 and 50 reduces the risk of from breast cancer. All screening tests have both risks and benefits. These risks and benefits should be assessed for each individual patient through discussion with their provider to determine their preferred breast cancer screening schedule. Women should report any breast changes to a health care provider right away. Some women, because of their family history, a genetic tendency, or other factors, should be screened with annual breast MRI as well as with mammograms. (The number of women who fall into this category is very small). Patients and health care providers should discuss each patient? s history to decide if earlier screening and/or breast MRI are appropriate. Screening should continue as long as a woman is in good health and is expected to live 10 years or longer. Screening mammography may not detect 10-15% of breast cancers. A result letter has been sent to this patient by the [facility]. BIRADS CATEGORY 1: NEGATIVE Electronically signed by: BABAR ROCKWELL MD Maddy Nicholas APRN IMG MAMMO ORDERABLE S documented in this encounter Visit Diagnoses Diagnosis Visit for screening mammogram Other screening mammogram documented in this encounter Care Teams Acid Leveler Relationship Specialty Start Date End Date Maddy Nicholas APRN [address] [place] [address] PCP - General Geriatric Medicine 10/28/19 documented as of this encounter
--- OUTSIDE RECORDS SUMMARY | 2024-04-18 00:19 | XMS_ITS | Encounter Summary ---
[place] [address] Care Team Providers Care Nozzle Worker Name Role Phone Maddy Nicholas APRN Primary Care Provider Encounter Details Date Type Department Care Team (Latest Contact Info) Description 11/15/2022 7:58 AM EDT - 11/15/2022 11:59 PM EDT Hospital En[place] [id number] Maddy Nicholas APRN [address] [place] [address] Mastodynia; Encounter for screening mammogram for malignant neoplasm of breast; Family history of malignant neoplasm of breast Discharge Disposition: Home Social History Tobacco Use [...] Name Priority Date/Time Associated Diagnosis Comments MAMMO DIAGNOSTIC CAD AND JAIME BILATERAL Routine 11/15/2022 8:44 AM EDT Mastodynia Encounter for screening mammogram for malignant neoplasm of breast Family history of malignant neoplasm of breast documented in this encounter Results * Mammo Diagnostic CAD and Jaime Bilateral (11/15/2022 8:44 AM EDT) Anatomical Region Laterality Modality Breast Bilateral Mammography Impressions 11/15/2022 8:56 AM EDT Normal mammogram. Ultrasound performed due to nonfocal nature of pain. Return to annual screening FINAL ASSESSMENT: BI-RADS Category 1: Negative Thank you for letting us participate in the care of this patient. ??If you are a health care provider and have any questions regarding this report, please contact the number below. ??For patients who have questions please contact the health geriatric care manager that requested your imaging first. ? Electronically signed by: Skylar Muir MD, Radiology [place] ([phone]), at 11/15/2022 8:56 AM Narrative 11/15/2022 8:56 AM EDT DIAGNOSTIC MAMMOGRAPHY OF BOTH BREASTS CLINICAL HISTORY: RIGH BREAST PAIN(SUSPECT M/S); LEFT BREAST DUE FOR SCREEING RIGHT upper quadrant waxing and waning pain, nonfocal TECHNIQUE AND VIEWS OBTAINED: CC and MLO views were obtained of BOTH breasts. 2D and 3D tomosynthesis images were obtained. Computer aided detection was used. COMPARISON: Prior images BREAST DENSITY: The breast tissue is heterogeneously dense, which may obscure small masses. FINDINGS: There are no mammographic concerns malignancy in either breast. No changes since patient's prior examination Maddy Nicholas APRN IMG MAMMO ORDERABLE S documented in this encounter Visit Diagnoses Diagnosis Mastodynia Encounter for screening mammogram for malignant neoplasm of breast Other screening mammogram Family history of malignant neoplasm of breast documented in this encounter Care Teams Nozzle Worker Relationship Specialty Start Date End Date Maddy Nicholas APRN [address] [place] [address] PCP - General Geriatric Medicine 10/28/19 documented as of this encounter
--- OUTSIDE RECORDS SUMMARY | 2024-04-18 00:19 | XMS_ITS | Encounter Summary ---
Author Organization [facility] Address [facility] [place] [address] Care Team Providers Care Interior Design Consultant Name Role Phone CristopherSergioMaddy GINA Primary Care Provider [phone] Encounter Details Date Type Department Care Team (Late st Contact Info) Description 10/18/2021 4:00 PM EDT Office Visit Dermatology at [facility] [address] [place] [address] Adalberto Melchor MD [facility] [address] [place] [address] Duncan angioma; Seborrheic keratoses; Verruca vulgaris Social History Tobacco Use Types Packs/Day Years [...] this encounter Progress Notes * Adalberto Melchor MD - 10/18/2021 4:00 PM EDT Images from the original note were [...] of Present Illness: Cary López is a 71 y.o. Patient returns to clinic today for a full skin exam with the following concerns: - Small spot on left cheek that has been present for about a month and is asymptomatic. Last visit at Dermatology: Visit date not found Last visit with this provider: Visit date not found Medications: Reviewed in eD-H Allergies: Reviewed in eD-H Skin Examination: Full skin examination: Patient asked to undress to their comfort level. Verbalized that the provider???s preference is that the patient remove all clothing and that the provider will not examine areas patient elects to keep covered. Patient elects to keep underwear on and have the following examined: scalp, hair, face, ears, neck, chest, axillae, abdomen, back, and upper and lower extremities. Genitalia and buttocks were not examined. Assessment/Plan: #. Wart (Verruca Vulgaris) - Verrucous papule on the right cheek with pin-point vascular pattern noted on dermoscopy. - Discussed viral etiology (relative of HPV in skin) and rationale for therapy directed at reducingviral load and virus ultimately being controlled by immune response. - Reviewed in-office and at-home treatment options. - [place]yenne decision to proceed with cryotherapy in the clinic today. Patient is aware that multiple treatments may be required. Procedure: Destruction of lesion(s) with cryotherapy (LN2). Location(s): As noted above Number: 1 Discussed procedure and expectations including risks (especially hypopigmentation) and benefits. Verbal consent obtained. Frozen with LN2, 15-30 second thaw time, twice. There were no complications; patient tolerated the procedure well. Post-procedure expectations and wound care reviewed. #. Seborrheic Keratoses - Stuck on, waxy papules on the trunk and extremities. - Discussed benign nature of lesions and provided reassurance. No treatment necessary at this time. #. Duncan Angiomas - Multiple bright red, well-demarcated papules on the trunk and extremities. - Discussed benign nature of lesions and provided reassurance. No treatment necessary at this time. Other: ??? N/A RTC: 2 years for FSE []Note routed to assistant corporate secretary [x]Recall placed in scheduling system []Appointment scheduled at checkout Scribe attestation: DESTINY Rosario and Fer Pino have performed the documentation for this encounter in the presence of and acting as a scribe for Adalberto Melchor MD. I performed the above scribed service and agree with the accuracy of the documentation in this encounter. Reviewed and signed by: Adalberto Melchor MD Dermatology [facility] documented in this encounter Plan of Treatment Not on file documented as of this encounter Visit Diagnoses Diagnosis Duncan angioma Nevus, non-neoplastic Seborrheic keratoses Verruca vulgaris Viral warts, unspecified documented in this encounter Care Teams Interior Design Consultant Relationship Specialty Start Date End Date Maddy Nicholas APRN [address] [place] [address] PCP - General Geriatric Medicine 10/28/19 documented as of this encounter
--- OUTSIDE RECORDS SUMMARY | 2024-04-18 00:19 | XMS_ITS | Encounter Summary ---
Author Organization [facility] Address [facility] [place] [address] Care Team Providers Care Technical Business Analyst Name Role Phone Maddy Nicholas APRN Primary Care Provider Encounter Details Date Type Department Care Team (Latest Contact Info) Description 10/25/2022 Travel Social History Tobacco Use Types Packs/Day [...] on filedocumented in this encounter Care Teams Technical Business Analyst Relationship Specialty Start Date End Date Maddy Nicholas APRN [address] [place] [address] PCP - General Geriatric Medicine 10/28/19 documented as of this encounter
--- OUTSIDE RECORDS SUMMARY | 2024-04-18 00:19 | XMS_ITS | Encounter Summary ---
Author Organization [facility] Address [facility] [place] [address] Care Team Providers Care Legal Associate Name Role Phone Sheila Grey MD Primary Care Provider Sean nielsen Encounter Details Date Type Department Care Team (Late st Contact Info) Description 09/27/2018 2:00 PM EDT Office Visit Dermatology at [facility] [address] [place] [address] Adalberto Melchor MD [facility] [address] [place] [address] Seborrheic keratoses; Duncan angioma; Lentigines; Irritant hand dermatitis Social History Tobacco Use Types Packs/Day Years [...] on file documented as of this encounter Patient Instructions * Patient Instructions* Janelle Chisholm, SERENAA - 09/27/2018 2:00 PM EDT Irritant hand dermatitis - red scaly chapped thin plaques with hyper-linearity and scattered fissures on BL hands - Reviewed hand hygiene and sensitive skin care Plan: - unscented Vaseline nightly - Cerave cream or Neutragena Danish Formula Hand Cream during day after hand washing Rx:Triamcinolone 0.1% cream Apply to affected areas BID x 2 weeks, then take 5 days off and repeat as needed. Reviewed side effects of chronic steroid use. Not for face or skin folds. documented in this encounter Progress Notes * Adalberto Melchor - 09/27/2018 2:00 PM EDT Images from the original note were not included. DERMATOLOGY - ESTABLISHED PATIENT FOLLOW-UP Date of service: 09/27/2018 Cary López : 1950, 68 y.o. Chief Complaint: Full skin exam HPI: Cary López is a 68 y.o. female last seen by myself on 09/27/2017. Ms. López returns today for full skin exam. Notes some spots on the back that are not bothersome, but scaly. Notes a few new red spots similar to the ones she had on her back the year prior. Otherwise, no new concerning lesions. ?? Relevant Skin History: - actinic keratosis ?? Family History: Melanoma: none ?? Social History: - Retired. Denies heavy sun exposure ?? Medications: Current Outpatient Medications Medication Sig Dispense Refill ??? magnesium oxide [...] well-appearing and in no noticeable distress. - Skin: Skin examination of the scalp, face, ears, neck, back, chest, abdomen, right and left upperextremities, right and left lower extremities, hands, feet, and buttocks was normal with the exception of the findings listed below. Genitalia examined with patient permission. - A female nurse was present and on standby during my examination. Diagnosis/Skin findings/Assessment/Plan: 1. Seborrheic keratosis. Scattered yellow to stevens stuck on papules 3-6 mm in size On back, arms, and legs -benign nature of lesions discussed -patient reassured. 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 Solar Lentigines - located on arm, face, upper back - Discussed begin nature of lesion and provided reassurance - No treatment necessary at this time - Observe skin for change in color, size or character. Call if such occur. 4. Sebaceous Hyperplasia-yellow papules with a crown of thorn rim of vessels and areas of central dell on the forehead. -advised that lesions are enlarged sebaceus glands that are benign growths. No further interventionrequired 5. Irritant hand dermatitis - Monahans scaly plaques on right thumb and distal tips. - Reviewed hand hygiene and sensitive skin care. Pt notes frequent washing of hands. Plan: - unscented Vaseline nightly - Cerave cream or Neutragena Danish Formula Hand Cream during day after hand washing Discussed changing hand soap to Dove and decreasing handwashing by using hand lime sludge kiln operator, suggested [employer] brand. Rx: Triamcinolone 0.1% cream Apply to affected areas BID x 2 weeks, then take 5 days off and repeatas needed. Reviewed side effects of chronic steroid use. RTC: 1 - 2 years for skin check or sooner for new concerning lesions. Note initiated by DESTINY Wiggins. I, DESTINY Wiggins, have performed the documentation for this encounter in the presence of and acting as a scribe for Adalberto Melchor MD. I performed the services which were documented by the scribe, and I agree with the accuracy of the documentation in this encounter. Adalberto Melchor MD Reviewed and signed by: Adalberto Melchor MD Resident in Dermatology [facility] Patient seen and evaluated with staff in flight technician: Tanika Cedeno MD Section of Dermatology [facility] * Tanika Cedeno MD - 09/27/2018 2:00 PM EDT I directly supervised Dr. Melchor during this office visit. Dr. Melchor presented the history and physical exam to me. I then saw and examined this patient with Dr. Melchor. We reviewed the history and pertinent details and I confirmed the physical findings. I agree with the details of the history and physical exam as documented in Dr. Melchor' note. TANIKA CEDENO MD Staff Physician documented in this encounter Plan of Treatment Not on file documented as of this encounter Visit Diagnoses Diagnosis Seborrheic keratoses Duncan angioma Nevus, non-neoplastic Lentigines Other dyschromia Irritant hand dermatitis Contact dermatitis and other eczema, due to unspecified cause documented in this encounter Care Teams Legal Associate Relationship Specialty Start Date End Date Sheila Grey MD PCP - General Internal Medicine 08/31/16 10/27/19 documented as of this encounter
--- OUTSIDE RECORDS SUMMARY | 2024-04-18 00:19 | XMS_ITS | Encounter Summary ---
Author Organization [facility] [place] [address] Care Team Providers Care Group Fitness Department Head Name Role Phone Sheila Cullen MD Primary Care Provider [phone] Encounter Details Date Type Department Care Team (Late st Contact Info) Description 05/15/2012 [place] [address] Lyndon Bates MD [facility] [place] [address] Social History Tobacco Use Types Packs/Day Years Used Date Smoking Tobacco: Never Assessed Sex and Gender Information Value Date Recorded Sex Assigned at Not on file Gender Identity Not on file Sexual Orientation Not on file documented as of this encounter Plan of Treatment Not on file documented as of this encounter Procedures Procedure Name Priority Date/Time Associated Diagnosis Comments FILM LIBRARY STORAGE ONLY DX CHEST Routine 05/15/2012 8:45 AM EDT documented in this encounter Results * Film Library- Storage only DX Chest (05/15/2012 8:45 AM EDT) Anatomical Region Laterality Modality Other 05/15/2012 8:45 AM EDT Narrative 04/24/2013 9:50 PM EST This is a non-reportable exam. Procedure Note Bud Mendez - 04/24/2013 This is a non-reportable exam. Lyndon Bates MD [facility] [place] LIBRARY O RDERABLES documented in this encounter Visit Diagnoses Not on filedocumented in this encounter Care Teams Group Fitness Department Head Relationship Specialty Start Date End Date Sheila Cullen MD [address] [place] [address] PCP - General 01/25/10 09/25/13 documented as of this encounter
--- OUTSIDE RECORDS SUMMARY | 2024-04-18 00:19 | XMS_ITS | Encounter Summary ---
Author Organization [facility] [place] [address] Care Team Providers Care Sample Grinder Name Role Phone Sheila Grey MD Primary Care Provider Susana ble Encounter Details Date Type Department Care Team (Late st Contact Info) Description 03/21/2017 Abstract Cardiology at [address] [id number] Patrick Jama RN Social History Tobacco Use Types Packs/Day Years [...] on filedocumented in this encounter Care Teams Sample Grinder Relationship Specialty Start Date End Date Sheila Grey MD PCP - General Internal Medicine 08/31/16 10/27/19 documented as of this encounter
--- OUTSIDE RECORDS SUMMARY | 2024-04-18 00:19 | XMS_ITS | Encounter Summary ---
[place] [address] Care Team Providers Care Life Enrichment Specialist Name Role Phone Sheila Cullen MD Primary Care Provider [phone] Encounter Details Date Type Department Care Team (Latest Contact Info) Description 09/29/2011 1:17 PM EDT - 09/29/2011 11:59 PM EDT Hospital En[place] [address] CLINIC, Sheila Magallon MD [address] [place] [address] Discharge Disposition: Home Social History Tobacco Use Types Packs/Day Years Used Date Smoking Tobacco: Never Assessed Sex and Gender Information Value Date Recorded Sex Assigned at Not on file Gender Identity Not on file Sexual Orientation Not on file documented as of this encounter Medications at Time of Discharge Medication Sig Dispensed Refills Start Date End Date fluconazole (DIFLUCAN) 150 mg tablet 08/31/2005 01/13/2013 levothyroxine (SYNTHROID) 75 mcg tablet 75mcg, PO, sunday and sunday07/19/2005 01/13/2013 levothyroxine (SYNTHROID) 88 mcg tablet 88mcg, PO, -sat-sun07/19/2005 01/13/2013 documented as of this encounter Plan of Treatment Not on file documented as of this encounter Procedures Procedure Name Priority Date/Time Associated Diagnosis Comments MAMMO SCREENING CAD BILATERAL Routine 09/29/2011 1:34 PM EDT documented in this encounter Results * MAMMO DIGITAL BILATERAL SCREENING WITH CAD (09/29/2011 1:34 PM EDT) Anatomical Region Laterality Modality Breast Bilateral Mammography 09/29/2011 1:34 PM EDT Narrative 10/02/2011 10:56 AM EDT Reason for Exam: Screening Technique: Craniocaudal (CC) and Medio-lateral Oblique (MLO) views of both breasts obtained with direct digital capture.In addition to the routine 2D imaging this exam was also performed with 3D tomographic imaging in MLO and CC projections. The exam was evaluated by CAD version 8.3.17. Findings: This is a negative mammogram (ACR Category 1). ??There is a stable fibroglandular pattern without significant change from prior studies. There is no mammographic evidence of cancer. ??The breasts are heterogeneously dense which limits mammographic sensitivity for the detection of malignancy. CONCLUSION: This is a NEGATIVE mammogram (ACR Category 1). ?? Routine screening mammography is recommended with the frequency dependent upon the patient's age and breast cancer risk factors. A letter has been sent to this patient by the breast imaging center. Procedure Note Skylar Muir MD - 10/02/2011 Reason for Exam: Screening Technique: Craniocaudal (CC) and Medio-lateral Oblique (MLO) views of both breasts obtained with direct digital capture.In addition to the routine 2D imaging this exam was also performed with 3D tomographic imaging in MLOand CC projections. The exam was evaluated by CAD version [...] is recommended with the frequency dependentupon the patient's age and breast cancer risk factors. A letter has been sent to this patient by the breast imaging center. Sheila Cullen MD IMG MAMMO ORDERABLES documented in this encounter Visit Diagnoses Not on filedocumented in this encounter Care Teams Life Enrichment Specialist Relationship Specialty Start Date End Date Sheila Cullen MD [address] [place] [address] PCP - General 01/25/10 09/25/13 documented as of this encounter
--- OUTSIDE RECORDS SUMMARY | 2024-04-18 00:19 | XMS_ITS | Encounter Summary ---
Author Organization [place] [address] Care Team Providers Care Sales Estimator Name Role Phone Sheila Cullen MD Primary Care Provider [phone] Encounter Details Date Type Department Care Team (Latest Contact Info) Description 05/21/2012 10:46 AM EDT - 05/21/2012 11:59 PM EDT Hospital [place] [address] Sheila Cullen MD [address] [place] [address] Discharge Disposition: Home Social History Tobacco Use [...] levothyroxine (SYNTHROID) 88 mcg tablet 88mcg, PO, -sat-sun 07/19/2005 01/13/2013 documented as of this encounter Plan of Treatment Not on file documented as of this encounter Procedures Procedure Name Priority Date/Time Associated Diagnosis Comments CREATININE STAT 05/21/2012 11:00 AM EDT documented in this encounter Results * (ABNORMAL) Creatinine (05/21/2012 11:00 AM EDT) Creatinine 0.69(L) 0.70 - 1.20 mg/dL [facility] Comment: Please note that the pediatric reference intervals supplied above were not validated at [facility]. Results from pediatric patients should be interpreted in conjunction to the patient's age, height and muscle mass. Est Glomerular Filtration Rate >60 >=60 [facility] Comment: The National Kidney Disease Education Program (NKDEP) has recommended all laboratories report estimated GFR (eGFR) along with plasma creatinine measurements to assist you with recognition of early kidney disease. Caveats: ??Plasma creatinine should be at steady-state (unchanged within the past week). For patients multiply eGFR by 1.2. The MDRD equation was developed using patients between the ages of 18 and 70 years. ?? The MDRD equation has not been validated for patients < 18 years of age and should not be used to assess renal function in the pediatric population. ??The MDRD eGFR equation will also overestimate the true GFR of patients above the age of 70. ??This overestimation is variable but increases with age. At present, NKDEP does NOT recommend using the MDRD equation for drug dosing purposes and pharmacists should continue to use their current dosing methods. In addition, numerical eGFR values greater than 60 ml/min/1.73 square meters should be treated as > 60, and not an exact number due to greater inaccuracies at these higher values. Per NKDEP, they classify normal renal function as any GFR >60ml/min/1.73 square meters; chronic kidney disease when GFR <60, and renal failure when GFR <15. ??This calculation may not be valid for patients with atypical muscle mass (very lean or obese), acute renal failure, and in patients with diabetic kidney disease. References: http://nkdep.nih.gov/resources/NKDEP_Suggestn4Labs_0606_508.pdf http://www.kidney.org/professionals/kls/pdf/faq_gfr.pdf Mikel Browne, Elbert NA, Beulah AK, Phong TS, Oseas AD, Veda BRANDON. Relative performance of the MDRD and CKD-EPI equations for estimating glomerular filtration rate among patients with varied clinical presentations. Clin J Am Soc Nephrol;6:1963-72. Blood specimen (specimen) 05/21/2012 11:00 AM EDT 05/21/2012 11:13 AM EDT Narrative Resulting Agency Comment Spec In Lab Sheila Cullen MD CHEMISTRY ORDERABLES Performing Organization Address City/State/[facility] Co de Phone Number [facility] documented in this encounter Visit Diagnoses Not on filedocumented in this encounter Care Teams Sales Estimator Relationship Specialty Start Date End Date Sheila Cullen MD [address] [place] [address] PCP - General 01/25/10 09/25/13 documented as of this encounter
--- OUTSIDE RECORDS SUMMARY | 2024-04-18 00:19 | XMS_ITS | Encounter Summary ---
Author Organization [facility] [place] [address] Care Team Providers Care Media Sales Representative Name Role Phone Sheila Grey MD Primary Care Provider Unavaila ble Reason for Visit * Reason Comments Skin Check annual skin exam Encounter Details Date Type Department Care Team (Late st Contact Info) Description 08/31/2016 10:00 AM EDT Office Visit Dermatology at [facility] [address] [place] [address] Sal Moreno MD Neal, Elisabeth G, PA [facility] [address] [place] [address] Duncan angioma; Seborrheic keratosis; Sebaceous hyperplasia; Milia Social History Tobacco Use Types Packs/Day Years [...] as of this encounter Progress Notes * Violet Hoover PA - 08/31/2016 10:00 AM EDT DERMATOLOGY - NEW PATIENT NOTE Date of service: 08/31/2016 Cary López : 1950 Dermatology Physician Breaker Table Worker Note: Violet Hoover PA-C Chief Complaint Patient presents with ??? Skin Check annual skin exam Ms. Cary López is a 66 y.o. female. This is a new patient to me and to the clinic. Patient is self-referred. HPI: Ms. López presents for a full skin exam. No lesions of concerns today. New to dermatology, wanting to be proactive and have skin checked. Skin History: None Family History: Melanoma: No Social History: N/A Medical History: Patient Active Problem List Diagnosis Code ??? Abnormal CT scan of lung R91.8 ??? 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 diphenhydrAMINE (BENADRYL) 25 mg tablet Take 25 mg by mouth every 6 hours as needed. ??? CALCIUM CARBONATE/VITAMIN D3 (CALCIUM WITH VITAMIN D3 ORAL) Take 1 tablet by mouth daily. ??? levothyroxine (SYNTHROID) 75 mcg tablet Take 75 mcg by mouth daily. ??? melatonin 3 mg Tab Take 3 mg by mouth every evening. No current facility-administered medications for this visit. Allergies: Allergies Allergen Reactions ??? Sulfa (Sulfonamide Antibiotics) Procedure screening: Allergies to lido/epi: No Defibrillator: No Review of Systems: - General: Feels well. - Skin: As per HPI; no other skin concerns. Examination: - Constitutional: Patient was alert, well-appearing and in no noticeable distress. - Skin: A full skin examination was performed. This includes the head, neck, face and scalp including behind the ears. The chest, abdomen, back, and axillae, as well as the arms, hands, palms, fingers. Legs, feet, toes and soles were also examined. Buttocks and breasts were also examined with patient consent. Genitalia were not examined. 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 - Patient reassured of benign nature. - Advised patient to call if areas become inflamed or irritated. 2. Seborrheic keratosis - Trunk and extremities: Multiple, 0.4-0.6cm brown papules with waxy, stuck-on appearance. Milia-like cysts, comedone-like openings and/or fissuring on dermoscopy. - Patient reassured of benign nature. - Advised patient to call if areas become inflamed or irritated. 3. Sebaceous hyperplasia - Scattered 0.2-0.3cm yellowish papules with central umbilication on the face. - Patient reassured of benign nature. 4. Milia - Face: 0.1cm firm, round, white subcutaneous papules. - Patient reassured of benign nature. The nature of sun-induced photo-aging and skin cancers is discussed. Discussed warning signs for skin cancer, including the ABCE's of melanoma. Sun avoidance, protective clothing, and the use of 30-SPF sunscreens is advised. Observe closely for skin damage/changes, and call if such occurs. Patient educational brochure on Skin Cancers provided. LOS: [id number] RTC in 1 year for a full skin exam, sooner if needed. Reminder placed in scheduling system. Instructed to call if problems arise. Note initiated by MELINDA Milligan, Clinical Scribe - I am documenting this encounter acting as the scribe for and in the presence of Violet Hoover PA-C I performed the above scribed service and agree with the accuracy of the documentation in this encounter. Reviewed and signed by Violet Hoover PA-C Dermatology [facility] Patient seen with direct supervision of Attending Physician: Sal Moreno MD Section of Dermatology [facility] * Sal Moreno MD - 08/31/2016 10:00 AM EDT 66 y/o fair skinned woman with no relevant skin history, concerned about lesions in general and risk of skin cancer, here for surveillance. Benign exam, but great opportunity to educate re: ABCD and warning signs of melanoma. Patient seen in conjunction with Violet Hoover PA-C Signed by: SAL MORENO MD Section of Dermatology [facility] documented in this encounter Plan of Treatment Not on file documented as of this encounter Visit Diagnoses Diagnosis Duncan angioma Nevus, non-neoplastic Seborrheic keratosis Other seborrheic keratosis Sebaceous hyperplasia Other specified disease of sebaceous glands Milia Sebaceous cyst documented in this encounter Care Teams Media Sales Representative Relationship Specialty Start Date End Date Sheila Grey MD PCP - General Internal Medicine 08/31/16 10/27/19 documented as of this encounter
--- OUTSIDE RECORDS SUMMARY | 2024-04-18 00:19 | XMS_ITS | Encounter Summary ---
[place] [address] Care Team Providers Care Bedspread Seamer Name Role Phone Sheila Cullen MD Primary Care Provider [phone] Encounter Details Date Type Department Care Team (Latest Contact Info) Description 05/21/2012 11:05 AM EDT - 05/21/2012 11:59 PM EDT Hospital [place] [id number] CLINIC, Sheila Magallon MD [address] [place] [address] Discharge Disposition: Home Social History Tobacco Use [...] Comments CT CHEST WO CONTRAST (GENERIC) Routine 05/21/2012 11:20 AM EDT documented in this encounter Results * CT chest WO contrast (05/21/2012 11:20 AM EDT) Anatomical Region Laterality Modality Chest Computed Tomogra phy 05/21/2012 11:2 0 AM EDT Narrative 05/21/2012 3:[address] Chest Without Contrast Clinical History ABNORMAL X-RAY AT [facility] PRES[facility]ANT COUGH Comparison None. Technique CT acquired of the chest without contrast. Findings There is a 10 x 5 x 11 mm nodule in the left lower lobe (series 3, image 69). ?? Adjacent to this is a band of opacity extending to the left hilum along the airways suggestive of atelectasis and/or scarring. ??No additional nodules. ??No lymphadenopathy within the mediastinum, jovanny, or axilla. ??No pleural or pericardial effusion. In the partially imaged upper abdomen a focus of calcification is present within the liver which may represent prior granulomatous disease. ??There are also partially imaged hypoattenuating hepatic lesions the larger of which are simple cysts but at least 3 smaller lesions are too small to accurately characterize but statistically likely simple cysts. Impression 1. ??10 mm right lower lobe pulmonary indeterminate nodule for which for which a short interval followup CT is recommended in 3 months of the lower chest. ?? Film and interpretation reviewed by the attending Procedure Note Lyndon Bates MD - 05/21/[address] Chest Without Contrast Clinical History ABNORMAL X-RAY AT [facility] PRESISTANT COUGH Comparison None. Technique CT acquired of the chest without contrast. Findings There is a 10 x 5 x 11 mm nodule in the left lower lobe (series 3, image69). Adjacent to this is a band of opacity extending to the left hilum alongthe airways suggestive of atelectasis and/or scarring. No additional nodules.No lymphadenopathy within the mediastinum, jovanny, or axilla. No pleural or pericardial effusion. In the partially imaged upper abdomen a focus of calcification is present within the liver which may represent prior granulomatous disease. Thereare also partially imaged hypoattenuating hepatic lesions the larger of whichare simple cysts but at least 3 smaller lesions are too small to accurately characterize but statistically likely simple cysts. Impression 1. 10 mm right lower lobe pulmonary indeterminate nodule for which forwhich a short interval followup CT is recommended in 3 months of the lower chest. Film and interpretation reviewed by the attending Sheila Cullen MD IMG CT ORDERABLES documented in this encounter Visit Diagnoses Not on filedocumented in this encounter Care Teams Bedspread Seamer Relationship Specialty Start Date End Date Sheila Cullen MD [address] [place] [address] PCP - General 01/25/10 09/25/13 documented as of this encounter
--- OUTSIDE RECORDS SUMMARY | 2024-04-18 00:19 | XMS_ITS | Encounter Summary ---
Author Organization [facility] [place] [address] Care Team Providers Care Choirmaster Name Role Phone Sheila Grey MD Primary Care Provider Unavaila ble Reason for Visit * Reason Comments Establish Care Chest Pain * Consultation (Routine) - Closed Specialty Diagnoses / Procedures Referred By Contac t Referred To Contact Cardiology Diagnoses chest pain, unspecified type Sheila Grey MD [facility] [place] [address] Luis Enrique Trinidad Jr., MD [address] [place] [id number] Referral ID Status Reason Start Date Expiration Date V isits Requested Visits Authorized [id number] Closed Consult, Test & Treat Connection [facility] 03/02/2017 03/02/2018 1 1 Encounter Details Date Type Department Care Team (Late st Contact Info) Description 04/11/2017 1:20 PM EST Office Visit Cardiology at [address] [address] Luis Enrique Trinidad Jr., MD Chest pain, unspecified type; Palpitations Social History Tobacco Use Types Packs/Day Years [...] - Inhaled Oxygen Concentration - - Weight 60.8 kg (134 lb) 04/11/2017 1:12 PM EST Height 167.6 cm (5' 6) 04/11/2017 1:12 PM EST Body Mass Index 21.63 04/11/2017 1:12 PM EST documented in this encounter Progress Notes * Luis Enrique Trinidad Jr., MD - 04/11/2017 1:20 PM EST Referring PCP: Sheila Grey MD Cardiology consultation History: Cary López is a 67 y.o. old female seen at the request of Sheila Grey MD for evaluation of chest pain. She has had a nagging discomfort around the lateral aspect of her left breast on and off for 8 months. It does not occur with activity and there is no associated dyspnea, nausea, dizziness, cough or other symptoms. She has had no change in exercise tolerance and denies any change in her breast exam. She has had unrelated palpitations which were investigated with the holter below. She denies other cardiac symptoms. Allergies Allergen Reactions ??? Sulfa (Sulfonamide Antibiotics) Current Outpatient Prescriptions Medication Sig Dispense Refill [...] No current facility-administered medications for this visit. Patient Active Problem List Diagnosis ??? Chest pain ??? Gastroesophageal reflux ??? Hypothyroidism ??? Hyperlipidemia ??? Cryptic tonsil right ??? Abnormal CT scan of lung Coronary risk factors: Smoking: former Diabetes:no Hypercholesterolemia:yes Hypertension:no Family history of premature disease:no Family History Problem (# of Occurrences) Relation (Name,Age of Onset) Alcohol Abuse (1) Father Breast Cancer (2) Mother, Sister Cerebrovascular Accident (1) Father Colorectal Cancer (1) Mother Diabetes (3) Mother, Sister, Brother Heart Disease (1) Maternal Grandfather Hypertension (1) Father Cardiac tests: Holter 03/06/2017: NSR, frequent APCs, rare SVT, longest 6 beats, rare VPC, no clear correlation withpatient symptoms Social History Social History ??? Marital status: Spouse name: N/A ??? Number of children: N/A ??? Years of education: N/A Occupational History ??? Not on file. Social History Main Topics ??? Smoking status: Former Smoker Quit date: 01/14/1972 ??? Smokeless tobacco: Never Used ??? Alcohol use Yes Comment: a couple of glasses on the weekend ??? Drug use: No ??? Sexual activity: Not on file Other Topics Concern ??? Not on file Social History Narrative ROS: episodic anxiety, varying abdominal pain, improved with diet changes, otherwise negative except as above Physical Exam: BP 98/62 (BP Location (NBP): Left arm, Patient Position: Standing) Pulse 60 Comment: per ekg Ht 167.6 cm (5' 6) Wt 60.8 kg (134 lb) BMI 21.63 kg/m2 General: WD, WN Skin: no rash HEENT: no xanthoma Neck: No JVD, HJR, or carotid abnormalities, thyroid benign Lungs: Clear Cor: RR, normal S1, S2. PMI not displaced. No murmur or gallop Abd: soft, no L/S/K enlargement or bruits Ext: Pulses preserved, equal bilaterally, no edema, cyanosis or clubbing Musculoskeletal: no muscle tenderness, no joint deformities Neuro: grossly nonfocal Psych: normal affect, appropriate EKG: NSR 60, APC and VPC, otherwise normal Lab data: None for review Assessment: 1) very atypical chest pain, no relation to activity, normal EKG and minimal risk factors. This is clearly non cardiac- I reviewed that with the patient and reassured her. She is to keep up activity as tolerated 2) palpitations- due to APCs- reassured Plan: 1) A discussion was held concerning the patient's chief complaints, the presumptive diagnosis(es) and the options for further evaluation and management. Reviewed the assessment above and the recommendations below in detail. 2) medical therapy None indicated 3) follow up PRN documented in this encounter Plan of Treatment Not on file documented as of this encounter Procedures Procedure Name Priority Date/Time Associated Diagnosis Comments ECG SCAN 04/20/2017 12:00 AM EST documented in this encounter Results * SCAN DOC: ECG (04/20/2017 12:00 AM EST) Narrative 04/20/2017 12:00 AM EST Ordered by an unspecified provider. Scanning Provider MEDIA MGR SCAN EXT O RDR/RSLT documented in this encounter Visit Diagnoses Diagnosis Chest pain, unspecified type Palpitations documented in this encounter Care Teams Choirmaster Relationship Specialty Start Date End Date Sheila Grey MD PCP - General Internal Medicine 08/31/16 10/27/19 documented as of this encounter
--- OUTSIDE RECORDS SUMMARY | 2024-04-18 00:19 | XMS_ITS | Encounter Summary ---
Author Organization [facility] [place] [address] Care Team Providers Care Civil Structural Designer Name Role Phone Maddy Nicholas APRN Primary Care Provider Encounter Details Date Type Department Care Team (Latest Contact Info) Description 11/08/2022 Travel Social History Tobacco Use Types Packs/Day [...] on filedocumented in this encounter Care Teams Civil Structural Designer Relationship Specialty Start Date End Date Maddy Nicholas APRN [address] [place] [address] PCP - General Geriatric Medicine 10/28/19 documented as of this encounter
--- OUTSIDE RECORDS SUMMARY | 2024-04-18 00:19 | XMS_ITS | Encounter Summary ---
[place] [address] Care Team Providers Care Client Advisor Name Role Phone Sheila Cullen MD Primary Care Provider [phone] Encounter Details Date Type Department Care Team (Latest Contact Info) Description 08/23/2012 10:01 AM EDT - 08/23/2012 11:59 PM EDT Hospital [place] [address] CLINIC, Sheila Magallon MD [address] [place] [address] Discharge Disposition: Home Social History Tobacco Use [...] Comments CT CHEST WO CONTRAST (GENERIC) Routine 08/23/2012 10:27 AM EDT documented in this encounter Results * CT chest WO contrast (08/23/2012 10:27 AM EDT) Anatomical Region Laterality Modality Chest Computed Tomogra phy 08/23/2012 10:2 7 AM EDT Narrative 08/23/2012 10:[address] chest without contrast Clinical History F/U TO CT ON 05/21/12 10MM RIGHT LOWER LOBE NODULE. Technique 3.75 mm thick axial contiguous sections were obtained through the chest from the traci to the diaphragm via helical acquisition without intravenous contrast administration using low radiation dose technique. Thin-section reconstructions as well as coronal and sagittal reformatted images were generated to aid in evaluation. Bismuth breast shield present. Comparison 05/21/2012. Findings Pulmonary parenchyma: Left lower lobe basilar nodular opacity previously measuring 10 mm on series 3 image 69 measures 8 mm on series 3 image 37. Question if this is a true decrease in size or if there is decreased adjacent subsegmental atelectasis, which was present on the prior examination. No new or enlarging pulmonary nodules are present. Airways: No significant interval findings. Pleura: No significant interval findings. Lymph nodes:No significant interval findings. Heart, pericardium, and great vessels:No significant interval findings. Other mediastinal structures: No significant interval findings. Upper abdomen:No significant interval findings. Skeletal structures:No significant interval findings. Impression Nodular opacity at the left lung base is measures slightly smaller, but may be due to decreased adjacent subsegmental atelectasis. Consider repeat CT surveillance to confirm reduction in another 3 months. If decreased at that time, no further surveillance needed. Procedure Note Yaneth Garcia MD - 08/23/[address] chest without contrast Clinical History F/U TO CT ON 05/21/12 10MM RIGHT LOWER LOBE NODULE. Technique 3.75 mm thick axial contiguous sections were obtained through the chestfrom the traci to the diaphragm via helical acquisition without intravenous contrast administration using low radiation dose technique. Thin-section reconstructions as well as coronal and sagittal reformatted images were generated to aid in evaluation. Bismuth breast shield present. Comparison 05/21/2012. Findings Pulmonary parenchyma: Left lower lobe basilar nodular opacity previously measuring 10 mm on series 3 image 69 measures 8 mm on series 3 image 37. Question if this is a true decrease in size or if there is decreasedadjacent subsegmental atelectasis, which was present on the prior examination. Nonew or enlarging pulmonary nodules are present. Airways: No significant interval findings. Pleura: No significant interval findings. Lymph nodes:No significant interval findings. Heart, pericardium, and great vessels:No significant interval findings. Other mediastinal structures: No significant interval findings. Upper abdomen:No significant interval findings. Skeletal structures:No significant interval findings. Impression Nodular opacity at the left lung base is measures slightly smaller, butmay be due to decreased adjacent subsegmental atelectasis. Consider repeat CT surveillance to confirm reduction in another 3 months. If decreased atthat time, no further surveillance needed. Sheila Cullen MD IMG CT ORDERABLES documented in this encounter Visit Diagnoses Not on filedocumented in this encounter Care Teams Client Advisor Relationship Specialty Start Date End Date Sheila Cullen MD [address] [place] [address] PCP - General 01/25/10 09/25/13 documented as of this encounter
--- OUTSIDE RECORDS SUMMARY | 2024-04-18 00:19 | XMS_ITS | Encounter Summary ---
[place] [address] Care Team Providers Care Time Lock Expert Name Role Phone Maddy Nicholas APRN Primary Care Provider [phone] Reason for Referral * Diagnostic Test (Routine) - Closed Specialty Diagnoses / Procedures Referred By Dominik castillo Referred To Contact Radiology Diagnoses Encounter for screening mammogram for breast cancer Procedures Mammo Screening Cad and Jaime Bilateral Maddy Nicholas APRN [address] [place] [address] [place] [address] Referral ID Status Reason Start Date Expiration Date V isits Requested Visits Authorized [id number] Closed Specialty Service Requested 09/03/2020 03/06/2022 1 1 Reason for Visit * Diagnostic Test (Routine) - Closed Specialty Diagnoses / Procedures Referred By Dominik castillo Referred To Contact Radiology Diagnoses Encounter for screening mammogram for breast cancer Procedures Mammo Screening Cad and Jaime Bilateral Maddy Nicholas APRN [address] [place] [address] [facility] [place] [address] Referral ID Status Reason Start Date Expiration Date V isits Requested Visits Authorized [id number] Closed Specialty Service Requested 09/03/2020 03/06/2022 1 1 Encounter Details Date Type Department Care Team (Latest Contact Info) Description 11/01/2020 10:10 AM EDT - 11/01/2020 11:59 PM EDT Hospital Encounter Mammography/[place] [address] Maddy Nicholas, SPORTING GOODS SALES ASSOCIATE [address] [place] [address] Encounter for screening mammogram for breast cancer [...] MAMMO SCREENING CAD AND JAIME BILATERAL Routine 11/01/2020 10:29 AM EDT Encounter for screening mammogram for breast cancer documented in this encounter Results * Mammo Screening Cad and Jaime Bilateral (11/01/2020 10:29 AM EDT) Anatomical Region Laterality Modality Breast Bilateral Mammography Narrative 11/01/2020 10:39 AM EDT BILATERAL MAMMOGRAPHY REASON FOR EXAM: [...] cancer documented in this encounter Care Teams Time Lock Expert Relationship Specialty Start Date End Date Maddy Nicholas APRN [address] [place] [address] PCP - General Geriatric Medicine 10/28/19 documented as of this encounter
--- OUTSIDE RECORDS SUMMARY | 2024-04-18 00:19 | XMS_ITS | Encounter Summary ---
Author Organization [facility] [place] [address] Care Team Providers Care Paraffiner Name Role Phone Sheila Huffman MD Primary Care Provider [phone] Reason for Visit * Reason Comments Advice Only Encounter Details Date Type Department Care Team (Late st Contact Info) Description 04/11/2013 10:10 AM EST Follow-Up Cardiothoracic Surgery [place] [id number] [facility], DR SABINA Bennett, Satish Vargas MD Abnormal CT scan of lung (Primary [...] Sign Reading Time Taken Comments Blood Pressure 118/72 04/11/2013 10:08 AM EST Pulse 64 04/11/2013 10:08 AM EST regu lar, radial Temperature - - Respiratory Rate - - Oxygen Saturation 98% 04/11/2013 10:08 AM EST Inhaled Oxygen Concentration - - Weight 64 kg (141 lb) 04/11/2013 10:08 AM EST Height 167.6 cm (5' 6) 04/11/2013 10:08 AM EST Body Mass Index 22.76 04/11/2013 10:08 AM EST documented in this encounter Progress Notes * Satish Bennett MD - 04/11/2013 10:29 AM EST Thoracic Surgery Attending Follow Up Note Satish Vargas. MD [place] [address] FAX: Date of Visit: 04/11/2013 PCP: SHEILA HUFFMAN MD Referring Physician: @[facility]@ Purpose for visit: This patient returns in follow up for abnormal Ct scan of the chest. HPI: Patient is a 63 y.o. female who presents with abnormal CT scan of the chest. Patientwas being followed for an ambiguous lesion of the LLL which over a period of 3 months appeared to be growing. She was referred to me and a PET was done prior to surgery that showed the lesion in question not to be PET avid. We elected to follow the area with another CT in 3 months and she is here for this. No new sx. Studies today: Chest CT: total resolution of LLL infiltrate and nodule. Allergies: Allergies Allergen Reactions ??? Sulfa (Sulfonamide Antibiotics) Medications: Outpatient Prescriptions Marked as Taking for the 04/11/13 encounter (Follow-Up) with Alix Bennett MD Medication Sig Dispense Refill ??? diphenhydrAMINE (BENADRYL) 25 mg tablet Take 25 mg by mouth every 6 hours as needed. ??? CALCIUM CARBONATE/VITAMIN D3 (CALCIUM WITH VITAMIN D3 ORAL) Take 1 tablet by mouth daily. ??? levothyroxine (SYNTHROID) 75 mcg tablet Take 75 mcg by mouth daily. ??? melatonin 3 mg Tab Take 3 mg by mouth every evening. Past Medical History: Patient Active Problem List Diagnosis Date Noted ??? Cryptic tonsil 02/04/2013 ??? Abnormal CT scan of lung 01/13/2013 No past medical history on file. No past surgical history on file. Review of Systems: All negative unless mentioned above. Physical Exam: BP 118/72 Pulse 64 Ht 167.6 cm (5' 6) Wt 63.957 kg (141 lb) BMI 22.76 kg/m2 SpO2 98% General Appearance: Alert, cooperative, no distress, appears stated age Skin: Wound clean dry and intact. Chest tube suture removed Psych: Alert, oriented, cooperative Neck: Supple, symmetrical, trachea midline, no adenopathy; thyroid: not enlarged, symmetric, no tenderness/mass/nodules; no carotid bruit or JVD Lungs: Clear to auscultation bilaterally, respirations unlabored, no wheezes, crackles or ronchi. Heart: Regular rate and rhythm, S1 and S2 normal, no murmur, rub, or gallop Abdomen: Soft, non-tender, bowel sounds active all four quadrants, no masses, no organomegaly Extremities: Extremities normal, atraumatic, no cyanosis or edema Neurologic: Normal Diagnostics: I have independently visualized the above studies: Assessment: Mrs. López is a 63 y.o. female with resolution of a ambiguous lesion of the LLL Plan of Management: Will discharge from my care. May return PRN SATISH BENNETT MD documented in this encounter Plan of Treatment Not on file documented as of this encounter Visit Diagnoses Diagnosis Abnormal CT scan of lung- Primary Other nonspecific abnormal finding of lung field documented in this encounter Care Teams Paraffiner Relationship Specialty Start Date End Date Sheila Huffman MD [address] [place] [address] PCP - General 01/25/10 09/25/13 documented as of this encounter
--- OUTSIDE RECORDS SUMMARY | 2024-04-18 00:19 | XMS_ITS | Encounter Summary ---
Author Organization [facility] [place] [address] Care Team Providers Care Office Machine Servicer Apprentice Name Role Phone Sheila Cullen MD Primary Care Provider [phone] Encounter Details Date Type Department Care Team (Late st Contact Info) Description 01/24/2013 Orders [place] [address] Satish Bennett MD Lung nodule (Primary Dx) Social History Tobacco Use Types Packs/Day Years [...] as of this encounter Visit Diagnoses Diagnosis Lung nodule- Primary Solitary pulmonary nodule documented in this encounter Care Teams Office Machine Servicer Apprentice Relationship Specialty Start Date End Date Sheila Cullen MD [address] [place] [address] PCP - General 01/25/10 09/25/13 documented as of this encounter
--- OUTSIDE RECORDS SUMMARY | 2024-04-18 00:19 | XMS_ITS | Encounter Summary ---
[place] [address] Care Team Providers Care Superintendent Logging Name Role Phone Maddy Nicholas APRN Primary Care Provider Encounter Details Date Type Department Care Team (Late st Contact Info) Description 10/27/2022 Telephone Mammography/[place] [id number] Ekaterina Franks, RT Social History Tobacco Use Types Packs/Day Years [...] on filedocumented in this encounter Care Teams Superintendent Logging Relationship Specialty Start Date End Date Maddy Nicholas APRN [address] [place] [address] PCP - General Geriatric Medicine 10/28/19 documented as of this encounter
--- OUTSIDE RECORDS SUMMARY | 2024-04-18 00:19 | XMS_ITS | Encounter Summary ---
[place] [address] Care Team Providers Care Human Resource Officer Name Role Phone Grisel Hinojosa Primary Care Provider [phone] Encounter Details Date Type Department Care Team (Latest Contact Info) Description 09/28/2014 9:51 AM EDT - 09/28/2014 11:59 PM EDT Hospital [place] [id number] CLINIC, Grisel Smallwood PA [address] [place] [id number] Discharge Disposition: Home Social History Tobacco Use [...] Diagnosis Comments MAMMO SCREENING CAD BILATERAL Routine 09/28/2014 10:06 AM EDT documented in this encounter Results * Mammo digital bilateral Screening with CAD (09/28/2014 10:06 AM EDT) Anatomical Region Laterality Modality Breast Bilateral Mammography 09/28/2014 10:0 6 AM EDT Narrative 09/29/2014 12:30 PM EDT Reason for Exam: Screening ?? Technique: [...] the breast imaging center. ?? Procedure Note Luz Marina [place] MD - 09/29/2014 Reason for Exam: Screening Technique: Craniocaudal (CC) [...] this patient by the breast imaging center. Grisel DOWD MAMMO ORDERABLES documented in this encounter Visit Diagnoses Not on filedocumented in this encounter Care Teams Human Resource Officer Relationship Specialty Start Date End Date Grisel Hinojosa PA PCP - General 09/26/13 08/30/16 documented as of this encounter
--- OUTSIDE RECORDS SUMMARY | 2024-04-18 00:19 | XMS_ITS | Encounter Summary ---
[place] [address] Care Team Providers Care Underwear Finisher Name Role Phone Sheila Cullen MD Primary Care Provider [phone] Encounter Details Date Type Department Care Team (Latest Contact Info) Description 10/11/2012 8:28 AM EDT - 10/11/2012 11:59 PM EDT Hospital [place] [address] CLINIC, Sheila Magallon MD [address] [place] [address] Discharge Disposition: Home Social History Tobacco Use [...] Diagnosis Comments MAMMO SCREENING CAD BILATERAL Routine 10/11/2012 8:48 AM EDT documented in this encounter Results * Mammo digital bilateral Screening with CAD (10/11/2012 8:48 AM EDT) Anatomical Region Laterality Modality Breast Bilateral Mammography 10/11/2012 8:48 AM EDT Narrative 10/14/2012 6:28 PM EDT BILATERAL MAMMOGRAPHY ?? REASON FOR EXAM: Screening ?? TECHNIQUE: Cranio-caudal (CC) and mediolateral oblique (MLO) views of both breasts obtained with direct digital capture. The exam was evaluated by CAD Version 8.3.17. ?? FINDINGS: This is a negative mammogram (ACR Category 1). There is a stable fibroglandular pattern without significant change as compared to prior studies. There is no mammographic evidence of cancer. ? The breasts are heterogeneously dense which may limit mammographic sensitivity for the detection of malignancy. ? CONCLUSION ?? This is a NEGATIVE mammogram (ACR Category 1). Routine screening mammography is recommended with the frequency dependent on the patient's age and breast cancer risk factors. ?? A letter has been sent to this patient by [facility]. Procedure Note Katie Herring MD - 10/14/2012 BILATERAL MAMMOGRAPHY REASON FOR EXAM: Screening TECHNIQUE: Cranio-caudal (CC) and mediolateral oblique (MLO) views of both breasts obtained with direct digital capture. The exam was evaluated byCAD Version 8.3.17. FINDINGS: This is a negative mammogram (ACR Category 1). There is a stable fibroglandular pattern without significant change as compared to priorstudies. There is no mammographic evidence of cancer. The breasts are heterogeneously dense which may limit mammographicsensitivity for the detection of malignancy. CONCLUSION This is a NEGATIVE mammogram (ACR Category 1). Routine screeningmammography is recommended with the frequency dependent on the patient's age and breastcancer risk factors. A letter has been sent to this patient by the [facility]. Sheila Gresser MD IMG MAMMO ORDERABLES documented in this encounter Visit Diagnoses Not on filedocumented in this encounter Care Teams Underwear Finisher Relationship Specialty Start Date End Date Sheila Cullen MD [address] [place] [address] PCP - General 01/25/10 09/25/13 documented as of this encounter
--- OUTSIDE RECORDS SUMMARY | 2024-04-18 00:19 | XMS_ITS | Encounter Summary ---
Author Organization [facility] [place] [address] Care Team Providers Care Pharmacy Salesperson Name Role Phone Maddy Nicholas APRN Primary Care Provider [phone] Encounter Details Date Type Department Care Team (Latest Contact Info) Description 07/16/2020 9:42 PM EDT - 07/16/2020 11:59 PM EDT [place] [phone] Discharge Disposition: Home Social History Tobacco Use [...] Procedure Name Priority Date/Time Associated Diagnosis Comments COVID-19 PCR Routine 07/16/2020 10:00 AM EDT documented in this encounter Results * COVID-19 PCR (07/16/2020 10:00 AM EDT) SARS-CoV-2 RNA Not Detected Not Detected [facility] Comment: This result should be interpreted in combination with the clinical observations, patient history and epidemiological information in making a final diagnosis. For testing of asymptomatic individuals, assay performance characteristics and clinical utility have not been evaluated. Testing for SARS-CoV-2 (Severe acute respiratory syndrome coronavirus 2, formerly known as 2019 novel coronavirus or 2019-nCoV) to aid in the diagnosis of COVID-19 is performed using the [employer] Alinity m SARS-CoV-2 Assay as authorized by the FDA Emergency Use Authorization (EUA). This EUA assay is intended for In-vitro Diagnostic (IVD) use with respiratory specimens such as nasopharyngeal swabs collected from individuals during the acute phase of infection. This assay is performed based on the instructions for use provided by [employer] and additional guidance provided by CDC and FDA. Testing is performed in the Clinical Genomics and [facility] Technology Laboratory within the Department of Pathology and Laboratory Medicine at [facility], certified under the Clinical Laboratory Improvement Amendments of 1988 (CLIA), 42 U.S.C. 263a, to perform high complexity tests. Assay performance has been verified according to clinical laboratory regulatory requirements for use with specimens collected from individuals suspected of COVID-19. Test results are provided above. A result of ? Not Detected? indicates that the viral RNA target is not present above the limit of detection, but does not preclude SARS-CoV-2 infection. False negative results may occur if a specimen is improperly collected, transported or handled; if amplification inhibitors are present; or if inadequate numbers of viral particles are present in the specimen. When a diagnostic test is negative, the possibility of a false negative result should be considered in the context of a patient? s recent exposures and the presence of clinical signs and symptoms consistent with COVID-19. A result of ? Detected? indicates that RNA from SARS-CoV-2 was detected and the patient is infected. As required or requested by public health authorities, positive specimens may be sent for additional testing. Positive and negative predictive values for this test are highly dependent on disease prevalence. A result of ? Invalid? indicates that neither the viral RNA targets nor the internal control target was detected. An invalid result suggests the presence of inhibitors. Recollection and re-testing is recommended in the case of an invalid result. CDC COVID-19 criteria for testing on human specimens and clinical management guidance information are available at the CDC Coronavirus Disease 2019 (COVID-19) webpage under ? Information for Healthcare Professionals? (https://www.cdc.gov/coronavirus/2019-ncov/hcp/index.html) Additional information about this and other EUA tests can be found in provider and patient fact sheets at the following FDA website: https://www.fda.gov/medical-devices/jqdppwfmbyl-wyeadcg-8688-ghtvk-00-pqcshyumc- use-a duciujjchewgx-nokdbne-chwgnao/jhhxw-qgljdybegjj-jtsr SARS-CoV-2 RNA Source CONCRETE PUMP OPERATOR Swab [facility] Nasopharyngeal swab (specimen) Other / Unknown 07/16/2020 10:00 AM EDT 07/16/2020 10:56 PM EDT Narrative Resulting Agency Comment Spec In Lab Clayton Gillis DO MOLECULAR ORDER JAYSON [facility] [place] [address] documented in this encounter Visit Diagnoses Not on filedocumented in this encounter Care Teams Pharmacy Salesperson Relationship Specialty Start Date End Date Maddy Nicholas APRN [address] [place] [address] PCP - General Geriatric Medicine 10/28/19 documented as of this encounter
--- OUTSIDE RECORDS SUMMARY | 2024-04-18 00:19 | XMS_ITS | Encounter Summary ---
Author Organization [facility] [place] [address] Care Team Providers Care Pushcart Peddler Name Role Phone Maddy Nicholas APRN Primary Care Provider [phone] Encounter Details Date Type Department Care Team (Late st Contact Info) Description 03/31/2021 12:10 PM EST - 03/31/2021 11:59 PM EST Hospital Encounter [facility] [address] [place] [address] Clayton Gillis, DO [address] [place] [phone] Discharge Disposition: Home Social History Tobacco Use [...] Date/Time Associated Diagnosis Comments COVID-19 PCR Routine 03/31/2021 10:00 AM EST documented in this encounter Results * COVID-19 PCR (03/31/2021 10:00 AM EST) SARS-CoV-2 RNA Not Detected Not Detected [facility] Comment: This result should be interpreted in combination with the clinical observations, patient history and epidemiological information. For testing of asymptomatic individuals, assay performance characteristics and clinical utility have not been evaluated. Testing for SARS-CoV-2 (Severe acute respiratory syndrome coronavirus 2, formerly known as 2019 novel coronavirus or 2019-nCoV) to aid in the diagnosis of COVID-19 is performed using the [employer] SARS Co-V-2 Assay on the [employer] System ([employer] as authorized by the FDA issued Emergency Use Authorization (EUA). This assay is intended for In-vitro Diagnostic (IVD) use with nasopharyngeal swabs collected from individuals meeting the CDC criteria for testing. The assay is performed based on the instructions for use and additional guidance provided by the FDA. Testing is performed in the Microbiology Laboratory within the Department of Pathology and Laboratory Medicine at [facility], certified under the Clinical Laboratory Improvement Amendments of 1988 (CLIA), 42 U.S.C. section 263a, to perform high-complexity tests. Assay performance has been verified according to clinical laboratory regulatory requirements. Test results are provided above. A result of Not Detected indicates that the viral RNA target is not present but does not preclude SARS-CoV-2 infection. False negative results may occur if a specimen is improperly collected, transported or handled; if amplification inhibitors are present; or if inadequate numbers of viral particles are present in the specimen. A result of Detected suggests a current or recent infection and the patient is presumed to be infected. Positive and negative predictive values for this test are highly dependent on disease prevalence. A result of Invalid indicates the inability to conclusively determine the presence or absence of SARS-CoV-2 RNA in the sample which can be due to a variety of factors. ??Collection of a new sample for repeat testing is recommended in the case of an invalid result. CDC COVID-19 criteria for testing on human specimens and clinical management guidance information are available at the CDC Coronavirus Disease 2019 (COVID-19) webpage under Information for Healthcare Professionals (https://www.cdc.gov/coronavirus/2019-ncov/hcp/index.html). Additional information about this and other EUA tests can be found in provider and patient fact sheets at the following FDA website: https://www.fda.gov/medical-devices/ggrqbweddop-ncxcqep-4595-zhazh-71-bvzhlwyyj- use-a gkkaudkwrvktm-jffxyct-zwamwpo/wxjhb-zpouiiswoae-fnbe SARS-CoV-2 RNA Source OIL BURNER MECHANIC Swab [facility] Nasopharyngeal Swab 03/31/19 10:00 AM EST 03/31/2021 10:20 PM EST Narrative Resulting Agency Comment Spec In Lab Clayton Gillis DO MOLECULAR ORD ERABLES [facility] [place] [address] documented in this encounter Visit Diagnoses Not on filedocumented in this encounter Care Teams Pushcart Peddler Relationship Specialty Start Date End Date Maddy Nicholas APRN [address] [place] [address] PCP - General Geriatric Medicine 10/28/19 documented as of this encounter
--- OUTSIDE RECORDS SUMMARY | 2024-04-18 00:19 | XMS_ITS | Encounter Summary ---
[place] [address] Care Team Providers Care Soc Analyst Name Role Phone Sheila Huffman MD Primary Care Provider [phone] Encounter Details Date Type Department Care Team (Late st Contact Info) Description 01/13/2013 8:50 AM EST Office Visit [place] [address] Satish Bennett MD Abnormal CT scan of [...] Sign Reading Time Taken Comments Blood Pressure 122/80 01/13/2013 8:47 AM EST Pulse 63 01/13/2013 8:47 AM EST Temperature - - Respiratory Rate - - Oxygen Saturation 98% 01/13/2013 8:47 AM EST Inhaled Oxygen Concentration - - Weight 65.2 kg (143 lb 11.2 oz) 01/13/2013 8:47 AM EST Height 167.6 cm (5' 6) 01/13/2013 8:47 AM EST Body Mass Index 23.19 01/13/2013 8:47 AM EST documented in this encounter Progress Notes * Satish Bennett MD - 01/13/2013 10:06 AM EST Thoracic Surgery Attending Outpatient Consultation Note Satish Bennett MD [place] [address] FAX: Date of Consultation: 01/13/2013 PCP: SHEILA HUFFMAN MD Referring Physician: Purpose for Consultation: Referred by Dr. Sheila Huffman for treatment of a SPN of the LLL. HPI: Patient is a 62 y.o. female who presents with abnormal CT lung. Tis non smoking otherwise healthy woman presented to her PCP 12/14 c/o cough. The cough persisted and prompted a CT scanin 05/15 that revealed a 1.1 cm nodule at the base of the LLL. This was followed for 6 months and CTrepeated that showed possible growth. Referred for consideration of resection. Pt is asx with respect to the nodule. Denies cough (sx stopped in mid spring), chest pain, sputum or hemoptysis, fever, chills, weight change, appetite change, energy change. Denies any limitations with respect to breathing. Fully active. Studies to date: Chest CT: see above PET: ordered Biopsy: not needed Mediastinal Staging/EUS: pending PET, nodes normal on CT MRI of head: not done PFT: Ordered to be done today Allergies: Allergies Allergen Reactions ??? Sulfa (Sulfonamide Antibiotics) Medications: Outpatient Prescriptions Marked as Taking for the 01/13/13 encounter (Office Visit) with Satish Bennett MD Medication Sig Dispense Refill ??? levothyroxine (SYNTHROID) 75 mcg tablet Take 75 mcg by mouth daily. ??? melatonin 3 mg Tab Take 3 mg by mouth every evening. Past Medical History: Patient Active Problem List Diagnosis Date Noted ??? Abnormal CT scan of lung 01/13/2013 No past medical history on file. No past surgical history on file. Family History: No history of lung cancer Social History: Non smoker, occasional ETOH. Review of Systems: Pertinent Positives: All negative unless mentioned above Physical Exam: BP 122/80 Pulse 63 Ht 167.6 cm (5' 6) Wt 65.182 kg (143 lb 11.2 oz) BMI 23.19 kg/m2 [id number]% General Appearance: Alert, cooperative, no distress, appears stated age Skin: Warm, clear, dry Psych: Alert, oriented, cooperative Neck: Supple, symmetrical, [...] Normal Diagnostics: I have independently visualized the following studies: Clinic Trial Eligibility: Patient has been screened and is not a candidate for a clinical trial. Assessment: Mrs. López is a 62 y.o. female with a worrisome CT scan suggestive of early stage lung cancer. While i am not convinced that the lesion has really grown significantly, it is certainly still there and has worrisome configuration with spiculated margins. I see no point in needle bx as a negative bx would not preclude surgery. Excellent candidate for surgery, thus I recommend a staging PET followed by local resection to prove malignancy. If malignant then LLL resection. Will obtain PFT's later today. This was discussed in detail and the patient and her family agree with this approach. She is tentatively scheduled for surgery on 02/12/13. Plan of Management: PFT's today PET CTOP Surgery pending 02/12 SATISH BENNETT MD documented in this encounter Plan of Treatment Not on file documented as of this encounter Procedures Procedure Name Priority Date/Time Associated Diagnosis Comments DIFFERENTIAL, AUTOMATED Routine 01/13/2013 10:43 AM EST TYPE AND SCREEN, SDP (FUTURE SURGERY, [facility] SAME DAY PROGRAM ONLY) Routine 01/13/2013 10:[address] scan of lung ABO/RH TYPING Routine 01/13/2013 10:[address] scan of lung CBC (WITH DIFF) Routine 01/13/2013 10:[address] scan of lung ANTIBODY SCREEN Routine 01/13/2013 10:[address] scan of lung COMPREHENSIVE METABOLIC PANEL Routine 01/13/2013 10:[address] scan of lung documented in this encounter Results * (ABNORMAL) PET/CT STANDARD (Skull base to Mid-thigh) (01/22/2013 1:05 PM EST) Anatomical Region Laterality Modality Other 01/22/2013 1:05 PM EST Narrative 01/22/2013 5:08 PM EST Examination PET/CT STANDARD (Skull base to Mid-thigh) Technique Procedure: Following IV injection of 36-yffgxt-2-deoxyglucose (FDG) and a standard uptake period, a [...] Mid-thigh) Technique Procedure: Following IV injection of 53-dlrzsy-8-deoxyglucose (FDG) and a standard uptake period, a [...] shot in theleft arm. Satish Bennett MD IM PET ORDERABLES * Pulmonary Function Testing (01/14/2013 8:59 AM [...] Pulmonary Medicine Satish Bennett MD PFT ORDERABLES * Differential, Automated (01/13/2013 10:43 AM EST) Neutrophil % 65.1 34.0 - 71.0 % CERNER MILLENNIUM Neutrophil Absolute 3.75 1.50 - 6.30 x10(3)/mcL CERNER MILLENNIUM Lymph % 25.7 19.0 - 53.0 % CERNER MILLENNIUM Lymphocytes Abs 1.5 1.0 - 3.6 x10(3)/mcL CERNER MILLENNIUM Monocyte % 8.0 4.0 - 13.0 % CERNER MILLENNIUM Monocyte Abs 0.5 0.2 - 1.0 x10(3)/mcL CERNER MILLENNIUM Eos % 0.9 0.0 - 7.0 % CERNER MILLENNIUM Eosinophils Abs 0.0 0.0 - 0.5 x10(3)/mcL CERNER MILLENNIUM Basophil % 0.3 0.0 - 2.0 % CERNER MILLENNIUM Baso Absolute 0.0 0.0 - 0.2 x10(3)/mcL CERNER MILLENNIUM Immature Gran % 0.00 0.00 - 0.66 % CERNER MILLENNIUM Comment: Immature granulocytes(IG's)percentage and absolute count will include metamyelocytes, myelocytes, and promyelocytes. Blood smears from CBCs yielding IG's will be scanned manually for concordance. If this scan disagrees with the automated IG or if promyelocytes are noted, a manual differential will be performed. Immature Gran Absolute 0.00 0.00 - 0.05 x10(3)/mcL [facility] Blood specimen (specimen) 01/13/2013 10:43 AM EST 01/13/2013 10:49 AM EST Satish Bennett MD HEMATOLOGY ORDERABLE S Performing Organization Address City/[facility] Co de Phone Number [facility] * Antibody screen (01/13/2013 10:43 AM EST) Ab Screen Interp Negative [facility] Expires at [id number] on: [id number] [facility] Comment:Corrected from 02/15 12:00 [Unknown] on 01/17/13 08:12 by Melinda Thibodeaux Blood specimen (specimen) 01/13/2013 10:43 AM EST 01/13/2013 10:53 AM EST Narrative Resulting Agency Comment Spec In Lab Satish Bennett MD BLOOD BANK LAB ORDER JAYSON Performing Organization Address [facility] Co de Phone Number [facility] * ABO/Rh Typing (01/13/2013 10:43 AM EST) Pathologist [facility] ABORH Type A Pos [facility] Blood specimen (specimen) 01/13/2013 10:43 AM EST 01/13/2013 10:53 AM EST Narrative Resulting Agency Comment Spec In Lab Satish Bennett MD BLOOD BANK LAB ORDER JAYSON Performing Organization Address [facility] Co de Phone Number [facility] * Comprehensive metabolic panel (non-fasting) (01/13/2013 10:43 AM EST) Pathologist [facility] Glucose 106 60 - 199 mg/dL [facility] Comment:Diabetes: >=200 mg/d L plus symptoms Blood Urea Nitrogen 14 8 - 18 mg/dL [facility] Creatinine 0.70 0.70 - 1.20 mg/dL [facility] Comment: Please note that the pediatric reference intervals supplied above were not validated at [facility]. Results from pediatric patients should be interpreted in conjunction to the patient's age, height and muscle mass. Sodium 142 135 - 145 mmol/L CERNER MILLENNIUM Potassium 3.7 3.5 - 5.0 mmol/L [facility]ERN[facility] MILLENNIUM Comment: Please note: ??Patients with WBC >100,000 may have falsely elevated Potassium levels. ??For accurate Potassium quantification in these patients send serum separator tube (gold top) for subsequent determinations. ??Contact the Clinical Chemistry Laboratory if there are any questions. Chloride 105 98 - 107 mmol/L CERNER MILLENNIUM Carbon Dioxide 26 22 - 31 mmol/L CERNER MILLENNIUM Anion Gap 11 5 - 15 mmol/L [facility]ERN[facility] MILLENNIUM Calcium 9.1 8.5 - 10.5 mg/dL CERNER MILLENNIUM Protein, Total 7.6 6.4 - 8.3 gm/dL CERNER MILLENNIUM Albumin 4.4 3.2 - 5.2 gm/dL CERNER MILLENNIUM Aspartate Aminotransferase 16 0 - 30 unit/L CERNER MILLENNIUM Alanine Aminotransferase 9 0 - 30 unit/L CERNER MILLENNIUM Alkaline Phosphatase 58 40 - 104 unit/L CERNER MILLENNIUM Bilirubin, Total 0.5 0.2 - 1.3 mg/dL CERNER MILLENNIUM Bilirubin, Direct 0.1 0.0 - 0.3 mg/dL CERNER MILLENNIUM Est Glomerular Filtration Rate >60 >=60 [facility] MILL[facility]NI[facility] Comment: This estimated GFR (eGFR) value was calculated using the MDRD equation which has been validated on patients between the ages of 18 and 70. The MDRD should not be used to assess kidney function in patients < 18 years of age or in patients with extremes of body mass, or in patients with acute kidney failure. This value should be multiplied by 1.2 for patients. For further information please copy and paste the following links into your internet browser. http://www.nkdep.nih.gov/lab-evaluation.shtml http://www.kidney.org/professionals/ Blood specimen (specimen) 01/13/2013 10:43 AM EST 01/13/2013 10:49 AM EST Narrative Resulting Agency Comment Spec In Lab Satish Bennett MD CHEMISTRY ORDERABLES [facility] * CBC (with Diff) (01/13/2013 10:43 AM EST) White Blood Cell 5.8 4.0 - 10.0 x10(3)/mcL CERNER MILLENNIUM Red Blood Cell 4.53 3.93 - 5.22 x10(6)/mcL [facility]ERN[facility] MILLENNIUM Hemoglobin 13.8 11.2 - 15.7 gm/dL CERNER MILLENNIUM Hematocrit 41.5 34.0 - 45.0 % CERNER MILLENNIUM Mean Cell Volume 91.6 79.0 - 94.0 fL CERNER MILLENNIUM Mean Cell Hemoglobin 30.5 26.6 - 32.2 pg CERNER MILLENNIUM Mean Cell Hemoglobin Concentration 33.3 32.0 - 36.5 gm/dL CERNER MILLENNIUM Platelet 215 145 - 370 x10(3)/mcL CERNER MILLENNIUM RDW Standard Deviation 42.6 35.0 - 46.0 fL CERNER MILLENNIUM RDW coefficient of variation 12.7 10.9 - 14.4 % CERNER MILLENNIUM Mean Platelet Volume 9.7 9.0 - 12.0 fL [facility]ERN[facility] MILLENNIUM Blood specimen (specimen) 01/13/2013 10:43 AM EST 01/13/2013 10:49 AM EST Narrative Resulting Agency Comment Spec In Lab Satish Bennett MD HEMATOLOGY ORDERABLE S Performing Organization Address City/[facility]/ZIP Co de Phone Number [facility] documented in this encounter Visit Diagnoses Diagnosis Abnormal CT scan of lung- Primary Other nonspecific abnormal finding of lung field Abnormal CT scan of lung- Primary Other nonspecific abnormal finding of lung field Abnormal CT scan of lung Other nonspecific abnormal finding of lung field documented in this encounter Care Teams Soc Analyst Relationship Specialty Start Date End Date Sheila Huffman MD [address] [place] [address] PCP - General 01/25/10 09/25/13 documented as of this encounter
--- OUTSIDE RECORDS SUMMARY | 2024-04-18 00:19 | XMS_ITS | Encounter Summary ---
[place] [address] Care Team Providers Care Historical Society Director Name Role Phone Sheila Cullen MD Primary Care Provider [phone] Encounter Details Date Type Department Care Team (Latest Contact Info) Description 01/28/2013 Multidisciplinary Ca re Committee [place] [address] Shon Kirkland MD [facility] [place] [address] Social History Tobacco Use Types Packs/Day Years [...] as of this encounter Progress Notes * Ekaterina Dow - 01/28/2013 7:41 AM EST CTOP TUMOR BOARD NOTE - DATE: 01/28/2013 PATIENT???S NAME: Cary López MR#: [id number] PRESENTING: Dr. Bennett : 1950 AGE: 62 y.o. GENDER: female Cough => CT scan. Non smoker. CT with ambiguous area LLL. Repeat CT 6 months later 12/27: ? Enlargement. PET-CT 01/22: L axillary FDG-avid adenopathy likely related to vaccination. LLL nodule, notFDG-avid, ~ 1 cm. STAGE: IA IB IIA IIB IIIA IIIB IV CLINICAL: cT N M PATHOLOGIC: pT N M TREATMENT RECOMMENDATIONS*: Possible indolent malignancy, follow with CT in 3 months. Resect if growing, otherwise observe. * (Based on past studies and the information available here.) Specific treatment to be undertaken must ultimately be determined on an individual basis by the patient and those involved in her treatment. documented in this encounter Plan of Treatment Not on file documented as of this encounter Visit Diagnoses Not on filedocumented in this encounter Care Teams Historical Society Director Relationship Specialty Start Date End Date Sheila Cullen MD [address] [place] [address] PCP - General 01/25/10 09/25/13 documented as of this encounter
--- OUTSIDE RECORDS SUMMARY | 2024-04-18 00:19 | XMS_ITS | Encounter Summary ---
Author Organization [facility] Address [facility] [place] [address] Care Team Providers Care Global Position System Technician Name Role Phone Sheila Grey MD Primary Care Provider Sean ble Encounter Details Date Type Department Care Team (Late st Contact Info) Description 09/27/2017 Telephone Dermatology at [facility] [address] [place] [address] Adalberto Melchor MD [facility] [address] [place] [address] Social History Tobacco Use Types Packs/Day Years [...] on filedocumented in this encounter Care Teams Global Position System Technician Relationship Specialty Start Date End Date Sheila Grey MD PCP - General Internal Medicine 08/31/16 10/27/19 documented as of this encounter
--- OUTSIDE RECORDS SUMMARY | 2024-04-18 00:19 | XMS_ITS | Encounter Summary ---
[place] [address] Care Team Providers Care Speech Therapist Technician Name Role Phone Sheila Cullen MD Primary Care Provider [phone] Encounter Details Date Type Department Care Team (Latest Contact Info) Description 12/27/2012 9:54 AM EDT - 12/27/2012 11:59 PM EDT Hospital [place] [id number] CLINIC, Sheila Magallon MD [address] [place] [address] Discharge Disposition: Home Social History Tobacco Use [...] Comments CT CHEST WO CONTRAST (GENERIC) Routine 12/27/2012 10:20 AM EDT documented in this encounter Results * CT chest WO contrast (12/27/2012 10:20 AM EDT) Anatomical Region Laterality Modality Chest Computed Tomogra phy 12/27/2012 10:2 0 AM EDT Narrative 12/27/2012 10:[address] chest without contrast Clinical History 10mm RIGHT LOWER LOBE NODULE F/U FROM 08/23/12 Technique 3.75 mm thick axial contiguous sections were obtained through the chest from the traci to the diaphragm via helical acquisition without intravenous contrast administration using low radiation dose technique. Thin-section reconstructions as well as coronal and sagittal reformatted images were generated to aid in evaluation. ?? Comparison 08/23/2012. Findings Pulmonary parenchyma: The left base nodular opacity is slightly more prominent, measuring 11 mm on series 3 image 33. Furthermore, on coronal and sagittal reconstructions, the opacity was previously more elliptical and measured approximately 5-6 mm in height, for example on sagittal series 400 image 82, it now measures 9-10 mm in height for example on sagittal reconstruction series 602 image 87, thus more rounded. ?? Adjacent left lower lobe atelectasis resolved. No other interval parenchymal findings. ?? Airways: No significant findings and unchanged. ?? Pleura: No pleural effusion. Lymph nodes:No thoracic lymphadenopathy. Heart, pericardium, and great vessels:No significant interval change. Other mediastinal structures: No significant interval change. Upper abdomen:No significant interval change. ?? Skeletal structures:No significant interval change. Impression Given persistence of left lung base nodule with interval enlargement in both axial and orthogonal dimensions, there is increased suspicion for neoplasm. The lesion appears amenable to CT-guided percutaneous biopsy. Consider consultation with a Comprehensive Thoracic Oncology Program surgeon, Dr. Bennett or Quang. Procedure Note Yaneth Garcia MD - 12/27/[address] chest without contrast Clinical History 10mm RIGHT LOWER LOBE NODULE F/U FROM 08/23/12 Technique 3.75 mm thick axial contiguous sections were obtained through the chestfrom the traci to the diaphragm via helical acquisition without intravenous contrast administration using low radiation dose technique. Thin-section reconstructions as well as coronal and sagittal reformatted images were generated to aid in evaluation. Comparison 08/23/2012. Findings Pulmonary parenchyma: The left base nodular opacity is slightly moreprominent, measuring 11 mm on series 3 image 33. Furthermore, on coronal and sagittal reconstructions, the opacity was previously more elliptical and measured approximately 5-6 mm in height, for example on sagittal series 400 image82, it now measures 9-10 mm in height for example on sagittal reconstructionseries 602 image 87, thus more rounded. Adjacent left lower lobe atelectasis resolved. No other intervalparenchymal findings. Airways: No significant findings and unchanged. Pleura: No pleural effusion. Lymph nodes:No thoracic lymphadenopathy. Heart, pericardium, and great vessels:No significant interval change. Other mediastinal structures: No significant interval change. Upper abdomen:No significant interval change. Skeletal structures:No significant interval change. Impression Given persistence of left lung base nodule with interval enlargement inboth axial and orthogonal dimensions, there is increased suspicion forneoplasm. The lesion appears amenable to CT-guided percutaneous biopsy. Considerconsultation with a Comprehensive Thoracic Oncology Program surgeon, Dr. Donald Brand. Sheila Cullen MD IMG CT ORDERABLES documented in this encounter Visit Diagnoses Not on filedocumented in this encounter Care Teams Speech Therapist Technician Relationship Specialty Start Date End Date Sheila Cullen MD [address] [place] [address] PCP - General 01/25/10 09/25/13 documented as of this encounter
--- OUTSIDE RECORDS SUMMARY | 2024-04-18 00:19 | XMS_ITS | Encounter Summary ---
[place] [address] Care Team Providers Care Silver Cleaner Name Role Phone Grisel Hinojosa Primary Care Provider [phone] Encounter Details Date Type Department Care Team (Latest Contact Info) Description 10/11/2015 11:21 AM EDT - 10/11/2015 11:59 PM EDT Hospital [place] [address] Grisel Hinojosa PA [address] [place] [address] Encounter for screening mammogram for malignant neoplasm of breast Discharge Disposition: Home [...] Associated Diagnosis Comments MAMMO SCREENING CAD AND DONNA BILATERAL Routine 10/11/2015 12:05 PM EDT Encounter for screening mammogram for malignant neoplasm of breast documented in this encounter Results * Mammo Digital Bilateral Screening With CAD and Tomosynthesis (10/11/2015 12:05 PM EDT) Anatomical Region Laterality Modality Breast Bilateral Mammography Narrative 10/11/2015 12:22 PM EDT BILATERAL MAMMOGRAPHY REASON FOR EXAM: [...] No mammographic evidence of malignancy. RECOMMENDATION: [employer] and The Society of [...] Breast Imaging Center. BIRADS CATEGORY 1: NEGATIVE Grisel DOWD MAMMO ORDERABLES documented in this encounter Visit Diagnoses Diagnosis Encounter for screening mammogram for malignant neoplasm of breast Other screening mammogram documented in this encounter Care Teams Silver Cleaner Relationship Specialty Start Date End Date Grisel Hinojosa PA PCP - General 09/26/13 08/30/16 documented as of this encounter
--- OUTSIDE RECORDS SUMMARY | 2024-04-18 00:19 | XMS_ITS | Encounter Summary ---
[place] [address] Care Team Providers Care Quality Internship Name Role Phone Maddy Nicholas APRN Primary Care Provider [phone] Encounter Details Date Type Department Care Team (Latest Contact Info) Description 10/28/2019 10:10 AM EDT - 10/28/2019 11:59 PM EDT Hospital Encounter Mammography/[place] [address] Maddy Nicholas APRN [address] [place] [address] Encounter for screening mammogram for breast cancer [...] MAMMO SCREENING CAD AND JAIME BILATERAL Routine 10/28/2019 10:35 AM EDT Encounter for screening mammogram for breast cancer documented in this encounter Results * Mammo Screening Cad and Jaime Bilateral (10/28/2019 10:35 AM EDT) Anatomical Region Laterality Modality Breast Bilateral Mammography Narrative 10/28/2019 10:41 AM EDT BILATERAL MAMMOGRAPHY REASON FOR EXAM: [...] [facility] Imaging Center. BIRADS CATEGORY 1: NEGATIVE Maddy Nicholas APRN IMG MAMMO ORDERABLE S documented in this encounter Visit Diagnoses Diagnosis Encounter for screening mammogram for breast cancer documented in this encounter Care Teams Quality Internship Relationship Specialty Start Date End Date Maddy Nicholas APRN [address] [place] [address] PCP - General Geriatric Medicine 10/28/19 documented as of this encounter
--- OUTSIDE RECORDS SUMMARY | 2024-04-18 00:20 | XMS_ITS | Encounter Summary ---
[place] [address] Care Team Providers Care Net Programmer Analyst Name Role Phone Sheila Cullen MD Primary Care Provider [phone] Encounter Details Date Type Department Care Team (Latest Contact Info) Description 09/23/2010 1:29 PM EDT - 09/23/2010 11:59 PM EDT Hospital [place] [address] CLINIC, Sheila Magallon MD [address] [place] [address] Discharge Disposition: Home Social History Tobacco Use [...] Diagnosis Comments MAMMO SCREENING CAD BILATERAL Routine 09/23/2010 1:57 PM EDT documented in this encounter Results * MAMMO DIGITAL BILATERAL SCREENING WITH CAD (09/23/2010 1:57 PM EDT) Anatomical Region Laterality Modality Breast Bilateral Mammography 09/23/2010 1:57 PM EDT Narrative 09/27/2010 11:52 AM EDT BILATERAL MAMMOGRAPHY ?? REASON FOR EXAM: Screening ?? TECHNIQUE: Cranio-caudal (CC) and mediolateral oblique (MLO) views of both breasts obtained with direct digital capture. In addition, bilateral implant displaced CC and MLO views were obtained. The exam was evaluated by CAD Version [...] by the [facility]. Procedure Note Beverly Meng MD - 09/27/2010 BILATERAL MAMMOGRAPHY REASON FOR EXAM: Screening TECHNIQUE: Cranio-caudal (CC) and mediolateral oblique (MLO) views of both breasts obtained with direct digital capture. In addition, bilateralimplant displaced CC and MLO views were obtained. The exam was evaluated by CADVersion 8.3.17. FINDINGS: This is a negative mammogram [...] patient by the [facility]. Sheila Cullen MD IMG MAMMO ORDERABLES documented in this encounter Visit Diagnoses Not on filedocumented in this encounter Care Teams Net Programmer Analyst Relationship Specialty Start Date End Date Sheila Cullen MD [address] [place] [address] PCP - General 01/25/10 09/25/13 documented as of this encounter
--- NOTE | 2024-04-18 06:45 | DI.US_ITS ---
Exam(s) US PELVIS TRANSVAGINAL EXAM: US PELVIS TRANSVAGINAL CLINICAL HISTORY: assess fml organs h/o R ingu hernia s/p '21 TECHNIQUE: Transabdominal and transvaginal imaging was performed using standard protocol. COMPARISON: US US PELVIS TRANSVAGINAL from 08/07/2019 FINDINGS: A transvaginal images are suboptimal due to shadowing by fibroid. UTERUS: Anteverted. 6.0 x 3.1 x 5.1 cm Endometrium: 3 mm Myometrium: Shadowing fibroid measuring 3.3 x 2.4 x 2.6 cm eccentric toward the right. Cervix: Unremarkable. OVARIES: Right: Cyst or mass: None. Left: Cyst or mass: None. DOPPLER: Color: Symmetric and uniform flow to both ovaries. No hyperemia. CUL-DE-SAC: Free fluid: None. IMPRESSION: 1. Roughly stable myometrial fibroid. 2. Unremarkable bilateral ovaries. DATA REPOSITORY:
--- NOTE | 2024-04-18 06:45 | DI.US_ITS ---
Exam(s) US HERNIA EXAM: US HERNIA CLINICAL HISTORY: assess region/mesh--pain to [id number],Z98.890,S/P RT HERNIORRHAPHY. TECHNIQUE: Ultrasound was performed using standard protocol. COMPARISON: CR XR ABDOMEN FLAT UPRIGHT from 03/14/2023 FINDINGS: Sonographic assessment utilizing grayscale and color Doppler imaging was performed and targeted to th e area of clinical concern. The hernia repair mesh was visualized which creates significant shadowing. No hernia is identified a t the borders of the mesh. IMPRESSION: No hernia is identified at the borders of the right inguinal mesh. DATA REPOSITORY:
== END 2024-04-18 00:35 ==
LOC: DI 00:17
PROVIDERS: PCP Nurse Practitioner Adult Health; Visit Provider Nurse Practitioner Adult Health
DX: Z98.890 Other specified postprocedural states (principal); Z87.19 Personal history of other diseases of the digestive system; R10.31 Right lower quadrant pain; K40.90 Unilateral inguinal hernia, without obstruction or gangrene, not specified as recurrent
CPT/HCPCS: 76857; 76830; 76856

== ENCOUNTER 2024-08-18 00:08 | Outpatient (CLI) | payer MEDICARE, BC, SELFPAY ==
--- NOTE | 2024-08-18 07:30 | DI.MRI_ITS ---
Exam(s) MR LUMBAR SPINE WO EXAM: MR LUMBAR SPINE WO CLINICAL HISTORY: Evaluate lumbago with lt sciatica,m54.42. TECHNIQUE: Multiplanar multisequence MRI of the Lumbar spine was performed. COMPARISON: CR XR DEXA BONE DENSITY W/WO DEEDEE from 02/12/2019 CR XR ABDOMEN FLAT UPRIGHT from 03/14/2023 FINDINGS: Bones: The last intervertebral disc space is designated the L5/S1 level for the numbering purpose of this examination. The vertebral body heights are well maintained. Alignment is satisfactory. Degenerative endplate signal changes are seen at L4-5 and L5-S1. Cord: The conus tip ends at the T12 level. It is of normal size and signal intensity. T12-L1: No disc herniations or bulges are present. No central spinal canal or neural foraminal stenosis. L1-2: No disc herniations or bulges are present. No central spinal canal or neural foraminal stenosis. L2-3: There is a mild diffuse disc bulge and mild facet arthropathy. No significant central spinal canal stenosis is seen. There is mild narrowing of the left neural foramen. No significant right neural foraminal stenosis is seen. L3-4: There is a mild diffuse disc bulge and mild degenerative changes of the facets. No central spinal canal or neural foraminal stenosis. L4-5: There is a mild diffuse disc bulge. Degenerative changes of the facets with hypertrophy of the ligamentum flavum is present. No central spinal canal or neural foraminal stenosis. L5-S1: There is a small central disc herniation. There may be mild compression upon the right S1 nerve root. There are degenerative changes of the facets. There is mild narrowing of the central spinal canal. There is mild narrowing of the right neural foramen. No significant left neural foraminal stenosis is seen. Soft tissues: The visualized SI joints and sacrum are well maintained. The paraspinal soft tissues are unremarkable. Visualized abdominal organs: There is diverticulosis seen in the colon. There are bilateral simple renal cysts. No follow-up is recommended. The liver is enlarged. IMPRESSION: 1. Degenerative changes at L5-S1 including a small central disc herniation. There is a mild compression on the right S1 nerve root. Mild narrowing of the central spinal canal and right neural foramen are noted at this level. 2. Multilevel degenerative changes in the lumbar spine as described above. 3. Hepatomegaly. DATA REPOSITORY:
== END 2024-08-18 00:28 ==
LOC: DI 00:08
PROVIDERS: PCP Nurse Practitioner Adult Health; Visit Provider Family Medicine
DX: M54.42 Lumbago with sciatica, left side (principal)
CPT/HCPCS: 72148

== ENCOUNTER 2024-08-27 08:28 | Outpatient (CLI) | payer MEDICARE, BC, SELFPAY ==
[2024-08-27 10:58] LABS: HCT 41.8 % (36.0-46.0); HGB 13.7 g/dL (11.2-15.7); MCH 30.1 pg (27.0-33.0); MCHC 32.8 % (32.0-36.0); MCV 92 fL (80-95); MPV 8.9 fL (8.0-11.0); Platelet Count 239 10^3/uL (130-400); RBC 4.55 10^6/uL (3.93-5.22); RDW 12.7 % (11.7-14.6); RDW-SD 42.9 fL; WBC 6.55 10^3/uL (4.4-10.8)
[2024-08-27 11:01] LABS: Mono Screening Negative (Negative)
[2024-08-27 12:00] LABS: ALT 19 U/L (14-59); AST 16 U/L (15-37); Alkaline Phosphatase 59 U/L (46-116); Bilirubin, Direct 0.2 mg/dL (0.0-0.2); Bilirubin, Total 0.6 mg/dL (0.2-1.0); Total Protein 7.5 g/dL (6.4-8.2)
[2024-08-28 10:39] LABS: HIV-1/2 Ag & Ab Screen Negative (Negative)
[2024-08-28 12:52] LABS: Hepatitis A Antibody IgM Negative (Negative); Hepatitis B Core Antibody Negative (Negative); Hepatitis B surface Ag Negative (Negative); Hepatitis C Ab w Rflx HCV PCR Negative (Negative)
== END 2024-08-27 08:29 | disposition home or self-care (01) ==
LOC: LBO 08:29
PROVIDERS: PCP Nurse Practitioner Adult Health; Visit Provider Nurse Practitioner Adult Health
DX: R16.0 Hepatomegaly, not elsewhere classified (principal)
CPT/HCPCS: 36415; 80076; 85027; 86704; 86709; 86803; 87340; 87389; 86308

== ENCOUNTER 2024-09-20 14:57 | Emergency (ER) | payer MEDICARE, BC, SELFPAY ==
[2024-09-20] VITALS (12 sets, daily range): BP systolic 112–156; BP diastolic 77–84; PULSE 58–81; RESP 14–18; O2SAT 97–98
--- NOTE | 2024-09-20 15:00 | RT.EKG_ITS ---
APPROVED REPORT Exam: Resting ECG Reason for Exam: Chest pain Patient Location: E HR:69 bpm ECG Measurements Heart Rate 69 AXIS RI 159 P 79 QRSd 98 QRS 65 QT 409 T 58 QTc 438 Conclusion Sinus rhythm 69 normal axis PAC no stemi
--- NOTE | 2024-09-20 15:15 | ED.GENADUL_ITS ---
Discharge Plan Disposition Patient Disposition: Home Condition: Stable Discharge Details Clinical Impression: Palpitations Primary Care Provider: Maddy Nicholas ED Provider: Scott Hylton Home Meds and New Rx's Prescriptions: No Action magnesium oxide 400 mg magnesium tablet 400 mg PO DAILY cbd oil liquid PO PRN (Reason: anxiety) vitamin B complex [B Complex-Vitamin B12] Tablet 1 tab PO DAILY levothyroxine 50 mcg tablet See Rx Instructions .ROUTE .COMPLEX Qty: 30 3RF Dose Instruction: TAKE ONE TABLET BY MOUTH EVERY DAY ON SUNDAY AND SUNDAY Rx Instructions: TAKE ONE TABLET BY MOUTH EVERY DAY ON SUNDAY AND SUNDAY levothyroxine [Synthroid] 88 mcg tablet 88 mcg PO DAILY Qty: 60 3RF Rx Instructions: Takes Sun, , Sun, , Sun cholecalciferol (vitamin D3) 1,000 UNIT capsule 2,000 unit PO DAILY lorazepam 0.5 mg tablet 0.5 mg PO before flying Qty: 10 0RF latanoprost 0.005 % drops 1 drp ophthalmic (eye) QPM Rx Instructions: each eye every evening hydrocortisone 2.5 % cream 1 applic TP BID PRN (Reason: hemorrhoids) Qty: 30 1RF Rx Instructions: apply thin layer to hemorrhoids up to BID PRN; avoid extended use for >14 consecutive days Discharge Instructions Instructions: Palpitations ED Additional Instructions: Your lab work and EKG are all very reassuring. There is no elevation in your heart enzymes. Your EKG does not reveal an acute change. Please monitor your symptoms closely and follow-up with your primary care provider. HPI General Date/Time Provider Initiated Documentation: 09/20/24 15:14 . Limitations to Documentation: no limitations . Information obtained by: patient . HPI Narrative: 74-year-old female with past medical history of hypothyroidism, PACs presents for evaluation of palpitations and shortness of breath. She has been noticing the symptoms over the last 2 to 3 days. She denies chest pain, but does describe a sensation of chest pressure. She is noticing this while she has been walking, but also noticing it while at rest. She states that she does not get a relief of her symptoms when she rests after walking. Symptoms are not associated with diaphoresis or nausea. No noted exacerbating or relieving symptoms. She thought that she has had symptoms like this in the past that she is attributed to anxiety or gas. She has taken some Tums without relief. She states that she does not feel like she is having anxiety today. She reports her last episode of symptoms was about 2 hours ago Related Data Home Medications ?Medication ?Instructions ?Recorded ?Confirmed cholecalciferol (vitamin D3) 25 2,000 unit PO DAILY 09/20/24 mcg (1,000 unit) capsule lorazepam 0.5 mg tablet 0.5 mg PO before flying #10 tabs 10/01/18 09/20/24 magnesium oxide 400 mg PO DAILY 12/23/18 cbd oil PO PRN anxiety 02/26/20 0709/26 latanoprost 0.005 % eye drops 1 drp ophthalmic (eye) Q PM 09/20/20 09/20/24 vitamin B complex (B 1 tab PO DAILY 10/28/2109/02 Complex-Vitamin B12 tablet) hydrocortisone 2.5 % topical cream 1 applic topical BI D PRN 09/07/22 09/20/24 hemorrhoids #30 grams levothyroxine 50 mcg tablet See Rx Instructions .Route 11/28/23 09/20/24 .COMPLEX #30 caps levothyroxine 88 mcg tablet 88 mcg PO DAILY #60 tabs 0 11/28/23 09/20/24 (Synthroid) Previous Rx's ?Medication ?Instructions ?Recorded lorazepam 0.5 mg tablet 0.5 mg PO before flying #10 tabs 10/01/18 hydrocortisone 2.5 % topical cream 1 applic topical BI D PRN 09/07/22 hemorrhoids #30 grams levothyroxine 50 mcg tablet See Rx Instructions .Route 11/28/23 .COMPLEX #30 caps levothyroxine 88 mcg tablet 88 mcg PO DAILY #60 tabs 0 11/28/23 (Synthroid) Allergies Allergy/AdvReac Type Severity Reaction Status Date / Time Sulfa (Sulfonamide Allergy Mild Skin Rash Verified 09/20/24 15:06 Antibiotics) General Stated Complaint: Chest Pain MERRY: 3 Exam Narrative Exam Narrative: Review of Systems: All systems reviewed & are unremarkable except as noted in HPI and below Well-developed, no acute distress NCAT PERRL, normal conjunctiva RRR no murmur Unlabored respiratory effort clear bilaterally Nondistended abdomen Extremities w/o edema no focal neurologic deficits Appropriate mood and affect Course Vital Signs Vital signs: Vital Signs Pulse 62 09/20/24 15:04 Respiratory Rate 18 09/20/24 15:04 Blood Pressure 156/77 H 09/20/24 15:04 Pulse Oximetry 98 09/20/24 15:04 Pulse 62 09/20/24 15:04 Respiratory Rate 18 09/20/24 15:04 Blood Pressure 156/77 H 09/20/24 15:04 Pulse Oximetry 98 09/20/24 15:04 Medical Decision Making Emergent evaluation of chest discomfort and palpitations. Initial differential includes cardiac dysrhythmia, electrolyte derangement. Patient is low risk for ACS. Her EKG was reviewed and independently interpreted: Sinus 69 PACs normal axis no acute ischemic change. Plan for lab work, serial cardiac markers will give dose of aspirin and continue cardiac monitoring. Patient is asymptomatic at this time. Lab work reviewed. Lites no leukocytosis or anemia, there is no electrolyte derangement. Serial cardiac enzymes are not elevated. TSH is within normal limits. At this time there is no emergent condition identified for her palpitations but I have a low suspicion for ACS the patient is low risk. Based on this workup, she is stable for discharge. Recommend close monitoring of symptoms. Return guidance provided to the patient advised follow-up with PCP. 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 (Acute ~08/2024) Excised Hepatomegaly (Acute ~08/2024) MRI finding Lumbago with sciatica, left side (Acute) Low back pain (Acute) Hip pain, left (Acute) Palpitations (Acute) Holter 2018, PACs, PVCs, SVT (short & few runs) Sleep difficulties (Acute) since childhood Osteopenia (Chronic ~2019) R forearm (2018), otherwise normal BMD Family history of cancer of GI tract (Chronic) M--colorectal Hypothyroidism (Chronic 09/18/12) Hyperlipidemia (Chronic 09/18/12) ASCVD 6.7%-->no statin indicated (2022) Family history of breast cancer (Chronic) Mom at 78; sister in her 50's Paresthesia of both feet (Chronic) Dr. 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) Early, focal Inguinal hernia, right (~2020) Dr Gillis--repaired 2020 Plantar fasciitis, bilateral Orthotics Nocturnal headaches probably 2' poor sleep, but monitoring Bleeding hemorrhoids Intermittent--RX Hydrocortisone, sitz baths, Prep H Thickened endometrium Vulvar lesion Dyspepsia h/o Nexium & apple cider vinegar Urinary, incontinence, stress female Lung mass (01/24/13) Incidental finding in 2012, [place] [facility] [place] with time & NEG on PET; none on f/u CXR Surgical History (Updated 09/08/24 @ 17:47 by Pattie Sargent LPN) H/O colonoscopy (~04/06/21) 04/06/21 on 5 year recall d/t family history S/P right inguinal herniorrhaphy (07/19/20) Dr [facility] left wrist fx (~2008) no surgery was needed Family History Mother Diabetes Personal history of malignant neoplasm BREAST, COLON Hyperlipidemia Hypertension Anxiety Substance abuse Father Substance abuse Essential hypertension Stroke Sister Diabetes Essential hypertension Personal history of malignant neoplasm BREAST Depression Hyperlipidemia Substance abuse Brother Diabetes Essential hypertension Depression Hyperlipidemia Grandfather Heart disease Grandfather Personal history of malignant neoplasm STOMACH Grandmother Non-Hodgkin lymphoma Grandmother Essential hypertension Stroke Brother Essential hypertension Social History Smoking/Tobacco Use Status: Former Tobacco Use Quit Date: 03/05/71 Tobacco: How many years used: 4 Smoking risk assessment performed?: Yes Alcohol Intake: current Alcohol Intake frequency: 0-2 drinks per day Alcohol type: beer and wine Drug use: Never Substance use type: does not use Adopted: No Caregiver/Support person: No Foster care: No Household members: spouse Housing: house Number of Children: 2 number of grandchildren: 4 Communication Needs: None Education Level: college Do you need help understanding health information?: Never current occupation: Retired--[employer], also BFA in dance (modern). Pets and animals: Yes Pets and animals: dog(s) Sexually active: Yes Do you think of yourself as: straight/heterosexual Current gender identity: female What is your relationship status?: How often do you talk on the phone with friends or family?: once per week How often do you get together with friends or relatives?: three or more times per week How often do you attend mandaen or holiness services?: decline to answer Do you belong to any clubs or organized social groups?: yes Panel score (0-1 are the most socially isolated patients): 3 What type of physical activity do you participate in: walking, swimming, other Details: Skiing and yoga Duration: 45-60 minutes/day Frequency: daily Special burt needs: No Seatbelt use: always Helmet use: Yes Helmet use: always Drive intox or ride w/intox [employer] truck driver: No Water heater temp set <120 deg: Yes Working smoke detector in home: Yes Fire extinguisher in home: Yes Carbon monox detector in home: Yes Do you feel safe at home: Yes Do you feel safe in your relationship?: Yes PAWSS Have you Been Recently Intoxicated or Drunk Within the Last 30 days?: No Have you Ever Experienced Previous Episodes of Alcohol Withdrawal?: No Have you ever Experienced Withdrawal Seizures?: No Have you ever Experienced Delirium Tremens(DT)s?: No Have you ever undergone Alcohol Rehabilitation Treatment (i.e, inpt ot outpatient treatment programs)?: No Have you ever Experienced Blackouts?: No Have you ever Combined Alcohol with other Downers within the last 90 days?: No Have you ever Combined Alcohol with any other Substance of Abuse during the last 90 days?: No Positive Blood Alcohol level on Presentation? [PCS.BAL]: No Evidence of Increased Autonomic Activity (i.e. HR>120, tremor, sweating, agitation, nausea)?: No Result: 0
[2024-09-20] MEDS: Aspirin 81 MG CHEW 324 MG CH (15:37)
[2024-09-20 16:01] LABS: Abs Immature Grans 0.01 10^3/uL (0.0-0.06); HCT 40.1 % (36.0-46.0); HGB 13.3 g/dL (11.2-15.7); Immature Grans % 0.2 %; MCH 30.2 pg (27.0-33.0); MCHC 33.2 % (32.0-36.0); MCV 91 fL (80-95); MPV 9.2 fL (8.0-11.0); Platelet Count 235 10^3/uL (130-400); RBC 4.40 10^6/uL (3.93-5.22); RDW 12.7 % (11.7-14.6); RDW-SD 41.9 fL; WBC 5.70 10^3/uL (4.4-10.8)
[2024-09-20 16:35] LABS: ALT 23 U/L (14-59); AST 19 U/L (15-37); Albumin 3.8 g/dL (3.4-5.0); Alkaline Phosphatase 61 U/L (46-116); Anion Gap 8.6 mmol/L (3-11); BUN 17 mg/dL (7-18); Bilirubin, Total 0.5 mg/dL (0.2-1.0); CO2 27.4 mmol/L (21.0-32.0); Calcium 9.3 mg/dL (8.5-10.1); Chloride 105 mmol/L (98-107); Estimated GFR 104.44 (mL/min/1.73m2); Glucose 95 mg/dL (74-106); Magnesium 2.2 mg/dL (1.8-2.4); NT-proBNP 180 pg/mL (<300); Potassium 3.7 mmol/L (3.5-5.1); Sodium 141 mmol/L (136-145); TSH (W/Ref FT4) 0.88 uIU/mL (0.36-3.74); Total Protein 7.4 g/dL (6.4-8.2); Troponin I 6 ng/L (<or=51)
[2024-09-20 17:10] LABS: Troponin I 8 ng/L (<or=51)
== END 2024-09-20 17:45 | disposition home or self-care (01) ==
PROVIDERS: Emergency Provider Emergency Medicine; PCP Nurse Practitioner Adult Health
DX: R00.2 Palpitations (principal); R06.02 Shortness of breath; I10 Essential (primary) hypertension
CPT/HCPCS: 99283; 99284; 36415; 80053; 93005; 83735; 83880; 84443; 84484; 85025; 93010

== ENCOUNTER 2024-10-09 03:00 | Outpatient (CLI) | payer MEDICARE, BC, SELFPAY ==
--- NOTE | 2024-10-09 06:00 | ETT_ITS ---
APPROVED REPORT Exam: Exercise Treadmill Patient Location: Out-Patient Room/Bed: Stress Nurse: Asha Hawk RN Ordering Provider:MEAGANMOHAN BEAUCHAMP, Contact Number: [phone] BMI: 20.17 Baseline Rhythm: Sinus Bradycardia Comment: Occasional PAC's Indications: Atypical chest pain, palpitations Medical History Medical History: Ischemic optic neuropathy, hepatomegaly, palpitations, hypothyroidism, HLD, PAC's, PVC's, SVT, COVID, pigmentary glaucoma (bilateral eyes) Cardiac Medications: Levothyroxine, lorazepam, magnesium oxide Allergies: Sulfa Cardiac Risk Factors: Family hx, HLD, former smoker Previous Cardiac Procedures: None Pretest Chest Pain Characteristics: None Exercise History: Physically active Physical Disabilities: None Lung Sounds: Clear to auscultation Heart Sounds: Bradycardia Stress Test Details Test: Exercise stress testing was performed using a Sae protocol. Rest Stress HR Resting HR Supine: 48 bpm Max Heart Rate (APMHR): 147 bpm Resting HR Standin bpm Target HR (85% APMHR): 125 bpm Max HR Achieved: 148 bpm % of APMHR: 101 Recovery HR: 55 bpm HR response to stress: Normal HR response to stress BP Resting BP Supine: 110/70 mmHg Resting BP Standin/80 mmHg Max BP: 180/90 mmHg Recovery BP: 110/72 mmHg BP response to stress: Normal blood pressure response to stress. ECG Resting ECG: Sinus Rhythm Ectopy: Occasional PAC's Stress ECG: Sinus Tachycardia ST Change: No significant ST segment changes noted Arrhythmia: Occasional PAC's Recovery ECG: Sinus Bradycardia Recovery ST Change: No significant ST segment changes noted Recovery Arrhythmia: Occasional PAC's, bigeminy, occasional PVC's, rare couplet Clinical Reason for Termination: 100% max HR Achieved Stress Symptoms: Mild SOB Exercise duration: 06 min03 sec Highest Stage Reached: Stage 3: 3.4 mph at 14% grade. Exercise capacity: 7.10 METs Angina Score: None Rate Pressure Product: [id number] Stress ECG Conclusion 1. Resting electrocardiogram showed sinus bradycardia with atrial premature beats 2. Patient exercised on the Sae protocol and completed workload of 7 METS 3. Normal heart rate and blood pressure response to exercise. The patient achieved 100% of maximal predicted heart rate for age 4. There was no electrocardiographic evidence of myocardial ischemia 5. There were no significant dysrhythmias Stress Test Summary STAGE Time (mins) Speed (mph) Grade (%) HR BP SpO2 SYMPTOMS METS Supine 48 110/70 98% Standing 59 110/80 1 3 1.7 10 120 140/78 99% 4.5 2 6 2.5 12 141 146/88 7 3 9 3.4 14 145 10 1 min recovery 124 180/90 97% 3 min recovery 87 140/90 98% 6 min recovery 55 110/72 Treadmill stopped due to patient reaching 100% of her max heart rate. Patient c/o mild SOB which resolved at end of recovery. Patient left ambulatory in no apparent distress.
== END 2024-10-09 03:20 ==
LOC: DI 03:00
PROVIDERS: PCP Nurse Practitioner Adult Health; Visit Provider Nurse Practitioner Adult Health
DX: R00.2 Palpitations (principal)
CPT/HCPCS: 93016; 93018; 93017

== ENCOUNTER 2024-11-04 13:20 | Outpatient (CLI) | payer MEDICARE, BC, SELFPAY ==
--- NOTE | 2024-11-04 06:30 | DI.US_ITS ---
Exam(s) US SOFT TISS BUTTOCK/PERINEUM EXAM: US SOFT TISS BUTTOCK/PERINEUM CLINICAL HISTORY: Re-check mass,vulvar lesion,n90.89. TECHNIQUE: Ultrasound was performed using standard protocol. COMPARISON: US US SOFT TISS EXTREMITY/GROIN from 10/06/2020 CR XR ABDOMEN FLAT UPRIGHT from 03/14/2023 US US HERNIA from 04/18/2024 FINDINGS: Sonographic assessment utilizing grayscale and color Doppler imaging was performed and targeted to the area of clinical concern in the right vulva. There is a solid circumscribed avascular lesion corresponding to the palpable abnormality in the right vulva which now measures 1.9 x 0.9 x 1.5 cm. This is increased from 1.6 x 0.8 x 1.4 cm. It contains echogenic foci which could represent calcifications. There are no associated signs of infection. This does not not appear to represent a cyst or lipoma. The findings could represent epidermal inclusion cyst, sebaceous cyst or benign neoplasm. No suspicious features IMPRESSION: Mildly increased size of previously noted circumscribed right vulvar lesion. DATA REPOSITORY:
== END 2024-11-04 13:40 ==
LOC: DI 13:21
PROVIDERS: PCP Nurse Practitioner Adult Health; Visit Provider Obstetrics & Gynecology
DX: N90.89 Other specified noninflammatory disorders of vulva and perineum (principal)
CPT/HCPCS: 76857

== ENCOUNTER 2025-02-10 01:21 | Outpatient (CLI) | payer MEDICARE, BC, SELFPAY ==
[2025-02-10 07:48] LABS: TSH (W/Ref FT4) 2.41 uIU/mL (0.55-4.78)
[2025-02-10 07:51] LABS: Anion Gap 7.4 mmol/L (3-11); BUN 15 mg/dL (9-23); CO2 29.6 mmol/L (20.0-31.0); Calcium 8.2 mg/dL (8.3-10.6); Chloride 108 mmol/L (98-107); Cholesterol 225 mg/dL (<200); Glucose 90 mg/dL (74-106); HDL Cholesterol 71 mg/dL (>40); Potassium 3.8 mmol/L (3.5-5.1); Sodium 145 mmol/L (136-145)
== END 2025-02-10 01:22 | disposition home or self-care (01) ==
LOC: LBO 01:21
PROVIDERS: PCP Nurse Practitioner Adult Health; Referring Provider Nurse Practitioner Adult Health; Visit Provider Nurse Practitioner Adult Health
DX: E03.9 Hypothyroidism, unspecified (principal); E78.00 Pure hypercholesterolemia, unspecified; M85.831 Other specified disorders of bone density and structure, right forearm
CPT/HCPCS: 36415; 80048; 80061; 84443